=== PATIENT | female | born 2000 | race Caucasian/White ===

== ENCOUNTER 2019-11-21 13:46 | Emergency (ER) | payer MEDICAID ==
--- OUTSIDE RECORDS SUMMARY | ~2019-11-21 | XMS | Encounter Summary ---
Demographics + + + | Address | [address] | | | [place] [address] | + + + | Home Phone | | + + + | Preferred Language | Unknown | + + + | Marital Status | Single | + + + | Adventism Affiliation | Unknown | + + + | Race | Unknown | + + + | Ethnic Group | Unknown | + + + Author + + + | Author | [facility] | | | and [place] | + + + | Organization | [facility] | | | and [place]hin[place] | + + + | Address | Unknown | + + + | Phone | Unavailable | + + + Support + + + + + | Name | Relationship | Address | Phone | + + + + + | Aaron Giron | [place] [address] | | + + + + + Care Team Providers + +------+ + | Care Process Development Associate Name | Role | Phone | + +------+ + | Catracho Mullen DO | PCP | | + +------+ + Encounter Details +--------+ + + + + | Date | Type | Department | Care Team | Description | +--------+ + + + + | 06/20/ | Telephone | [facility] | Connie Gaines, | | | 2014 | | [facility] [place] | [facility] [address] [facility] | | | | | LABORATORY [address] | [place] [address] | | | | | [place] | [phone] | | | | | [address] | | | | | | [phone] | | | +--------+ + + + + Social History + + + +--------+ + | Tobacco Use | Types | Packs/Day | Years | Date | | | | | Used | | + + + +--------+ + | Former Smoker | Cigarettes | 1 | 1 | Started: 06/28/2013 | + + + +--------+ + + +---+---+---+ | Smokeless Tobacco: | | | | | Never Used | | | | + +---+---+---+ + + + | Sex Assigned at | Date Recorded | | | | + + + | Not on file | | + + + + + + + | Job Start Date | Occupation | Industry | + + + + | Not on file | Not on file | Not on file | + + + + + + + + | Travel History | Travel Start | Travel End | + + + + + + | No recent travel history available. | + + documented as of this encounter Plan of Treatment Not on filedocumented as of this encounter Visit Diagnoses Not on filedocumented in this encounter"
--- OUTSIDE RECORDS SUMMARY | ~2019-11-21 | XMS | Encounter Summary ---
Demographics + + + | Address | [address] | | | [place] [address] | + + + | Home Phone | | + + + | Preferred Language | Unknown | + + + | Marital Status | Single | + + + | Islam Affiliation | Unknown | + + + | Race | Unknown | + + + | Ethnic Group | Unknown | + + + Author + + + | Author | [facility] | | | and [place] | + + + | Organization | [facility] | | | and [place] | + + + | Address | Unknown | + + + | Phone | Unavailable | + + + Support + + + + + | Name | Relationship | Address | Phone | + + + + + | Aaron Giron | [place] [address] | | + + + + + Care Team Providers + +------+ + | Care Outside Sales Name | Role | Phone | + +------+ + | Thea Hernandez | PCP | | + +------+ + Reason for Visit + + + | Reason | Comments | + + + | Follow-up | | + + + Encounter Details +--------+ + + + + | Date | Type | Department | Care Team | Description | +--------+ + + + + | 05/23/ | Telephone | [facility] | Renetta, Wendy E, | Follow-up | | 2018 | | MEDICINE [address] | [address] | | | | | [address] | [place] | | | | | [place] | [place] [address] | | | | | [address] | [phone] | | | | | [phone] | | | +--------+ + + + [...] | | | + +---+---+---+ + + +---------+ + | Alcohol Use | Drinks/Week | oz/Week | Comments | + + +---------+ + | No | 0 Standard drinks | 0.0 | | | | or equivalent | | | + + +---------+ + + + + | Sex Assigned at [...]
--- OUTSIDE RECORDS SUMMARY | ~2019-11-21 | XMS | Encounter Summary ---
Demographics + + + | Address | [address] | | | [place] [address] | + + + | Home Phone | | + + + | Preferred Language | Unknown | + + + | Marital Status | Single | + + + | Protestant Affiliation | Unknown | + + + | Race | Unknown | + + + | Ethnic Group | Unknown | + + + Author + + + | Author | [facility] | | | and [place] | + + + | Organization | [facility] | | | and [place] | + + + | Address | Unknown | + + + | Phone | Unavailable | + + + Support + + + + + | Name | Relationship | Address | Phone | + + + + + | Aaron Giron | [place] [address] | | + + + + + Care Team Providers + +------+ + | Care Body And Frame Technician Name | Role | Phone | + +------+ + | Catracho Mullen DO | PCP | | + +------+ + Reason for Visit +--------+ + | Reason | Comments | +--------+ + | Other | discuss letrozole increasing dose not helping | +--------+ + Encounter Details +--------+---------+ + + + | Date | Type | Department | Care Team | Description | +--------+---------+ + + + | 06/16/ | Office | [facility] | Wendy Jackson, | Anovulation (Primary | | 2018 | Visit | MEDICINE [address] | [address] | Dx) | | | | [facility] | [facility] | | | | | [place] | [place] [address] | | | | | [address] | [phone] | | | | | [phone] | | | +--------+---------+ + + + Social History + + [...] + + documented as of this encounter Last Filed Vital Signs + +---------+ + + | Vital Sign | Reading | Time Taken | Comments | + +---------+ + + | Blood Pressure | 130/80 | 06/16/2017 2:43 PM | | | | | MST | | + +---------+ + + | Pulse | 99 | 06/16/2017 2:43 PM | | | | | MST | | + +---------+ + + | Temperature | - | - | | + +---------+ + + | Respiratory Rate | 18 | 06/16/2017 2:43 PM | | | | | MST | | + +---------+ + + | Oxygen Saturation | - | - | | + +---------+ + + | Inhaled Oxygen | - | - | | | Concentration | | | | + +---------+ + + | Weight | - | - | | + +---------+ + + | Height | - | - | | + +---------+ + + | Body Mass Index | - | - | | + +---------+ + + documented in this encounter Progress Notes Wendy Jackson DO - 06/16/2017 2:20 PM MSTPt here to discuss her ovulation induction. She has been on 2.5 mg of letrzole and having spontaneous menses. Will increase to 5 mg. Discussed to not get discouraged as this process can often take several cycles or even up to 1 year. Pt encouraged and mother provides great support as she had to use ovulation induct ion also Wendy Jackson documented in this encounter Plan of Treatment Not on filedocumented as of this encounter Visit Diagnoses + + | Diagnosis | + + | Anovulation - Primary Female infertility associated with anovulation | + + documented in this encounter"
--- OUTSIDE RECORDS SUMMARY | ~2019-11-21 | XMS | Encounter Summary ---
Demographics + + + | Address | [address] | | | [place] [address] | + + + | Home Phone | | + + + | Preferred Language | Unknown | + + + | Marital Status | Single | + + + | Sabianist Affiliation | Unknown | + + + | Race | Unknown | + + + | Ethnic Group | Unknown | + + + Author + + + | Author | [facility] | | | and [place] | + + + | Organization | [facility] | | | and [place] | + + + | Address | Unknown | + + + | Phone | Unavailable | + + + Support + + + + + | Name | Relationship | Address | Phone | + + + + + | Aaron Giron | [place] [address] | | + + + + + Care Team Providers + +------+ + | Care Wet Chemistry Analyst Name | Role | Phone | + [...] | +--------+ + + + + | 07/02/ | Telephone | [facility] | Wendy Jackson, | Follow-up | | 2018 | | MEDICINE [address] | [address] | | | | [address] | [place] | | | | | [place] | [place] [address] | | | | | [address] | [phone] | | | | | [phone] | | | +--------+ + + + [...]
--- OUTSIDE RECORDS SUMMARY | ~2019-11-21 | XMS | Encounter Summary ---
Demographics + + + | Address | [address] | | | [place] [address] | + + + | Home Phone | | + + + | Preferred Language | Unknown | + + + | Marital Status | Single | + + + | Baptist Affiliation | Unknown | + + + | Race | Unknown | + + + | Ethnic Group | Unknown | + + + Author + + + | Author | [facility] | | | and [place] | + + + | Organization | [facility] | | | and [place] | + + + | Address | Unknown | + + + | Phone | Unavailable | + + + Support + + + + + | Name | Relationship | Address | Phone | + + + + + | Aaron Giron | [place] [address] | | + + + + + Care Team Providers + +------+ + | Care Property Management Specialist Name | Role | Phone | + [...] | +--------+ + + + + | 04/21/ | Telephone | [facility] | Wendy Jackson, | Follow-up | | 2017 | | MEDICINE [address] | [address] | | | | [address] | [place] | | | | | [place] | [place] [address] | | | | | [address] | [phone] | | | | | [phone] | | | +--------+ + + + [...]
--- OUTSIDE RECORDS SUMMARY | ~2019-11-21 | XMS | Encounter Summary ---
Demographics + + + | Address | [address] | | | [place] [address] | + + + | Home Phone | | + + + | Preferred Language | Unknown | + + + | Marital Status | Single | + + + | Pentecostal Affiliation | Unknown | + + + | Race | Unknown | + + + | Ethnic Group | Unknown | + + + Author + + + | Author | [facility] | | | and [place] | + + + | Organization | [facility] | | | and [place]hin[place] | + + + | Address | Unknown | + + + | Phone | Unavailable | + + + Support + + + + + | Name | Relationship | Address | Phone | + + + + + | Aaron Giron | [place] [address] | | + + + + + Care Team Providers + +------+ + | Care Stringer Up Soldering Machine Name | Role | Phone | + [...] | +--------+ + + + + | 06/27/ | Telephone | [facility] | Renetta, Wendy E, | Follow-up | | 2019 | | MEDICINE [address] | [address] | | | | | [address] | [place] | | | | | [place] | [place] [address] | | | | | [address] | [phone] | | | | | [phone] | | | +--------+ + + + [...]
--- OUTSIDE RECORDS SUMMARY | ~2019-11-21 | XMS | Encounter Summary ---
Demographics + + + | Address | [address] | | | [place] [address] | + + + | Home Phone | | + + + | Preferred Language | Unknown | + + + | Marital Status | Single | + + + | Baptist Affiliation | Unknown | + + + | Race | Unknown | + + + | Ethnic Group | Unknown | + + + Author + + + | Author | [facility] | | | and [place] | + + + | Organization | [facility] | | | and [place]hinavana | + + + | Address | Unknown | + + + | Phone | Unavailable | + + + Support + + + + + | Name | Relationship | Address | Phone | + + + + + | Aaron Giron | [place] [address] | | + + + + + Care Team Providers + +------+ + | Care Business Analyst Intern Name | Role | Phone | + +------+ + | Catracho Mullen DO | PCP | | + +------+ + Reason for Visit +--------+ + | Reason | Comments | +--------+ + | Cough | Cough, congested, aches, pains, fever, chills, stomach and chest | | | hurt since yesturday morning. Also had a bloody nose all day | | | yesturday, today only when blows her nose. | +--------+ + Encounter Details +--------+---------+ + + + | Date | Type | Department | Care Team | Description | +--------+---------+ + + + | 04/03/ | Office | [facility] | James Butt, | [facility] | | 2013 | Visit | [facility] [[email or web address] | [facility] | respiratory | | | | [address] | Dr Roth, | infection) (Primary | | | | [place], [place] | [place] [address] | Dx); Dysuria; | | | | [address] | [phone] | Exposure to STD | | | | [phone] | | | +--------+---------+ + + + Social History + +-------+ +--------+------+ | Tobacco Use | Types | Packs/Day | Years | Date | | | | | Used | | + +-------+ +--------+------+ | Former Smoker | | | | | + +-------+ +--------+------+ + + +---------+ + | Alcohol Use | Drinks/Week | oz/Week | Comments | + + +---------+ + | Not Asked | | | | + + +---------+ + [...] this encounter Last Filed Vital Signs + + + + + | Vital Sign | Reading | Time Taken | Comments | + + + + + | Blood Pressure | 108/58 | 04/03/2014 1:29 PM | | | | | MDT | | + + + + + | Pulse | 105 | 04/03/2014 1:29 PM | | | | | MDT | | + + + + + | Temperature | 37.2 C (99 F) | 04/03/2014 1:29 PM | | | | | MDT | | + + + + + | Respiratory Rate | 20 | 04/03/2014 1:29 PM | | | | | MDT | | + + + + + | Oxygen Saturation | 95% | 04/03/2014 1:29 PM | | | | | MDT | | + + + + + | Inhaled Oxygen | - | - | | | Concentration | | | | + + + + + | Weight | 105.2 kg (232 lb) | 04/03/2014 1:29 PM | | | | | MDT | | + + + + + | Height | 170.2 cm (5' 7") | 04/03/2014 1:29 PM | | | | | MDT | | + + + + + | Body Mass Index | 36.34 | 04/03/2014 1:29 PM | | | | | PDT | | + + + + + documented in this encounter Progress Notes James Guerra FNP - 04/07/2014 5:15 PM MDTFormatting of this note might be diffe rent from the original. PATIENT NAME: Norma Green : 2000: AGE: 13 y.o. ENCOUNTER DATE: 04/03/2014 BETHANY Wilkes HISTORY OF PRESENT ILLNESS: Norma is a 13 y.o. year old female who presents with complaints of URI symptoms for the l ast 24 hours.. CURRENT ASSESSMENT AND PLAN URI (upper respiratory infection) Pt reports URI sx for last 24 hrs, sx include cough with green sputum, congestion, body ach es, ST and ear pain, Chills and fever. Upper respiratory infection is likely viral and she has no signs/symptoms of bacterial infe ction. There she does have a history of mild asthma, and reports having wheezing since onse t of illness. Plan: Instructed patient to continue use of albuterol inhaler every 4 hours when necessary. Use OTC guaifenesin, as well as OTC analgesics for pain and fever. Return if any worsening concerns. Exposure to STD María is reporting having had recent sexual contact with a partner positive for hep C. She also feels that she has had amenorrhea, increased vaginal discharge, and pain with urina tion. She is concerned about possible STD. Plan: GC chlamydia urine and UA ordered Spoke with patient about returning to see Connie Gaines, her PCP, for studies related to possible hepatitis C exposure Dysuria Patient describes some degree of pain with urination and frequency a which she believes is related to STD exposure. Plan: UA collected and resulted positive for small amount of bacteria and blood as well as nitrat es and leukocytes. Ciprofloxacin as ordered Anticipate culture FOLLOWUP No Follow-up on file. MEDICATION ADJUSTMENTS New Prescriptions ALBUTEROL (PROAIR HFA) 90 MCG/PUFF INHALER Inhale 2 puffs into the lungs every 6 hours as needed for Wheezing. CIPROFLOXACIN (CIPRO) 500 MG TABLET Take 1 tablet by mouth 2 times daily for 5 days. Medications Discontinued During This Encounter Medication Reason FLUoxetine (PROZAC) 20 mg capsule Patient Not Taking NEW ORDERS Orders Placed This Encounter Procedures C. trachomatis and N. gonorrhoeae, NAAT (APTIMA) Urinalysis with Microscopic with Culture if Indicated History Smoking status Former Smoker Smokeless tobacco Not on file Patient's medications, allergies, past medical, surgical, social and family histories were reviewed and updated as appropriate. REVIEW OF SYSTEMS: REVIEW OF SYSTEMS: Patient denies nausea, vomiting, chest pain, lower extremity swelling, o r bowel problems. See assessment and HPI for positives OBJECTIVE: Vitals with Orthostatic BP with comments 03/22/2014 04/03/2014 SYSTOLIC 110 108 DIASTOLIC 82 58 Pulse 68 105 Temp 98.4 99 Resp 18 20 Weight 232 lbs 232 lbs Height 5' 7" 5' 7" SPO2 97 95 BMI 36.4 kg/m2 36.4 kg/m2 General: Alert, oriented, and in no acute distress. HEENT: Normocephalic, features symmetric. PERRLA, EOMI, no injection icterus. Moist mucu s membranes. Nasal canals shows small amount of clear drainage, turbinates are inflamed. P osterior pharyngeal exam reveals no exudate, and small amount of redness. Tonsils not swoll en. Ear canals are clear. TM's are pearly banks and intact. Neck: Supple, no lymphadenopathy or thyromegaly Pulmonary: Chest is clear to auscultation. There are no rales, or rhonchi, did hear inspi ratory wheeze at right upper lobe. No use of intercostal or accessory muscles. Cardiovascular: Patient has regular rate and rhythm. There is no murmur, rub, or gallop. Abdomen: Soft and non-distended, bowel sounds are active in all four quadrants, with organ omegaly or masses, no bruit. There is diffuse mild tenderness. Neuro: Alert and oriented x3. CN II-XII grossly intact. Signed by: BETHANY Wilkes documented in this encounter Plan of Treatment Not on filedocumented as of this encounter Results Urinalysis with Microscopic with Culture if Indicated (04/03/2014 2:41 PM MDT) + + + + + + | Component | Value | Ref Range | Performed | Pathologist | | | | | At | Signature | + + + + + + | Color, | Yellow | Straw, Yellow | [facility] | | | Urine | | | [facility] | | | [facility] | | | | | | CENTER | | | | | | LABORATORY | | + + + + + + | Clarity | Clear | Clear, Slightly | [facility] | | | | | Cloudy, Other | [facility] | | | | | | [facility] | | | | | | CENTER | | | | | | LABORATORY | | + + + + + + | pH, Urine | 7.0 | 5.0 - 8.0 | [facility] | | | | | | [facility] | | | | | | MEDICAL | | | | | | CENTER | | | | | | LABORATORY | | + + + + + + | Specific | 1.025 | 1.005 - 1.030 | [facility] | | | [place], | | | [facility] | | | Urine | | | MEDICAL | | | | | | CENTER | | | | | | LABORATORY | | + + + + + + | Protein, | Negative | Negative | [facility] | | | Urine | | | [facility] | | | | | | MEDICAL | | | | | | CENTER | | | | | | LABORATORY | | + + + + + + | Blood, | Moderate (A) | Negative | [facility] | | | Urine | | | [facility] | | | | | | MEDICAL | | | | | | CENTER | | | | | | LABORATORY | | + + + + + + | Glucose, | Negative | Negative | [facility] | | | Urine | | | [facility] | | | | | | MEDICAL | | | | | | CENTER | | | | | | LABORATORY | | + + + + + + | Ketones, | Negative | Negative | [facility] | | | Urine | | | [facility] | | | | | | MED[facility] | | | | | | CENTER | | | | | | LABORATORY | | + + + + + + | Bilirubin, | Negative | Negative | [facility] | | | Urine | | | [facility] | | | | | | MEDICAL | | | | | | CENTER | | | | | | LABORATORY | | + + + + + + | Nitrite, | Negative | Negative | [facility] | | | Urine | | | [facility] | | | | | | MED[facility] | | | | | | CENTER | | | | | | LABORATORY | | + + + + + + | Leukocyte | Negative | Negative | [facility] | | | Esterase, | | | [facility] | | | Urine | | | MEDICAL | | | | | | CENTER | | | | | | LABORATORY | | + + + + + + | Urobilinoge | < 0.2 mg/dL | < 0.2 mg/dL, | [facility] | | | n, Urine | | 1.0 mg/dL | [facility] | | | | | | MEDICAL | | | | | | CENTER | | | | | | LABORATORY | | + + + + + + | White Blood | 0-2 | 0-2, 2-5, None | [facility] | | | Cells, | | Seen, Trace | [facility] | | | Urine | | /HPF | MEDICAL | | | | | | CENTER | | | | | | LABORATORY | | + + + + + + | Red Blood | 5 - 10 (A) | 0-2, None Seen | [facility] | | | Cells, | | /HPF | [facility] | | | Urine | | | MEDICAL | | | | | | CENTER | | | | | | LABORATORY | | + + + + + + | Squamous | <10 (A) | None Seen /LPF | [facility] | | | Epithelial | | | [facility] | | | Cells, | | | MEDICAL | | | Urine | | | CENTER | | | | | | LABORATORY | | + + + + + + | Bacteria, | 1+ (A) | None Seen, | [facility] | | | Urine | | Trace, Few /HPF | [facility] | | | | | | MEDICAL | | | | | | CENTER | | | | | | LABORATORY | | + + + + + + | Calcium | Few (A) | None Seen /HPF | [facility] | | | Oxalate | | | [facility] | | | Crystals, | | | MEDICAL | | | Urine | | | CENTER | | | | | | LABORATORY | | + + + + + + | Amorphous | Few (A) | None Seen /HPF | [facility] | | | Crystals, | | | [facility] | | | Urine | | | MEDICAL | | | | | | CENTER | | | | | | LABORATORY | | + + + + + + + + | Specimen | + + | Urine | + + + + + + + | Performing | Address | City/State/Zipcode | Phone Number | | Organization | | | | + + + + + | [facility] | [address] | [place] [address] | [phone] | | [facility] | | | | | LABORATORY | | | | + + + + + C. trachomatis and N. gonorrhoeae, NAAT (APTIMA) (04/03/2014 2:41 PM MDT) + + + + + + | Component | Value | Ref Range | Performed | Pathologist | | | | | At | Signature | + + + + + + | Chlamydia | NOT DETECTED | NOT DETECTED | REFERENCE | | | trachomatis | | | [facility] | | | rRNA PCR | | | [facility]NOST[facility] | | | | | | - [place] | | + + + + + + | Neisseria | NOT DETECTED | NOT DETECTED | REFERENCE | | | gonorrhoeae | | | [facility] | | | rRNA PCR | | | DIAGNOSTICS | | | | | | - [place] | | + + + + + + | Result | SEE NOTEComment: This | | REFERENCE | | | | test was performed using | | [facility] | | | | the APTIMA COMBO2 | | DIAGNOSTICS | | | | Assay([employer] | | - [place] | | | | The analytical | | | | | | performance | | | | | | characteristics of this | | | | | | assay, when used to test | | | | | | [facility] specimens | | | | | | havebeen determined by | | | | | | [facility]. | | | | + + + + + + + + | Specimen | + + | Specimen from | | genital system | | (specimen) - Urine, | | Clean Catch | + + + + + | Narrative | Performed At | + + + | Performing Organization Information: Site ID: [id number] | REFERENCE LAB | | Name: [facility] [address] Address: [address] | [facility] | | [address] [place] [id number] Director: [facility] - | | MD MATT | [place] | + + + + + + + + | Performing | Address | City/State/Zipcode | Phone Number | | Organization | | | | + + + + + | REFERENCE LAB | [address] | [place], [place] | [phone] | | [facility] - | [address] | [address] | | | [place] | | | | + + + + + documented in this encounter Visit Diagnoses + + | Diagnosis | + + | URI (upper respiratory infection) - Primary Acute upper respiratory infections of | | unspecified site | + + | Dysuria | + + | Exposure to STD Contact with or exposure to venereal diseases | + + documented in this encounter
--- OUTSIDE RECORDS SUMMARY | ~2019-11-21 | XMS | Encounter Summary ---
Demographics + + + | Address | [address] | | | [place] [address] | + + + | Home Phone | | + + + | Preferred Language | Unknown | + + + | Marital Status | Single | + + + | Sikhism Affiliation | Unknown | + + + | Race | Unknown | + + + | Ethnic Group | Unknown | + + + Author + + + | Author | [facility] | | | and [place] | + + + | Organization | [facility] | | | and [place] | + + + | Address | Unknown | + + + | Phone | Unavailable | + + + Support + + + + + | Name | Relationship | Address | Phone | + + + + + | Aaron Giron | [place] [address] | | + + + + + Care Team Providers + +------+ + | Care Brim Curler Name | Role | Phone | + +------+ + | Catracho Mullen DO | PCP | | + +------+ + Reason for Visit +---------+ + | Reason | Comments | +---------+ + | Results | UA | +---------+ + Encounter Details +--------+ + + + + | Date | Type | Department | Care Team | Description | +--------+ + + + + | 04/05/ | Telephone | [facility] | Marion Lee, | Results () | | 2013 | | [facility] | RN | | | | | [address] [facility] | | | | | | [place] | | | | | | [address] | | | | | | [phone] | | | +--------+ + + + + Social History + + + +--------+ + | Tobacco Use | Types | Packs/Day | Years | Date | | | | | Used | | + + + +--------+ + | Current Every Day | Cigarettes | 1 | 1 | Started: 06/28/2013 | | Smoker | | | | | + + + +--------+ + + [...]
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
--- OUTSIDE RECORDS SUMMARY | ~2019-11-21 | XMS | Encounter Summary ---
Demographics + + + | Address | [address] | | | [place] [address] | + + + | Home Phone | | + + + | Preferred Language | Unknown | + + + | Marital Status | Single | + + + | Confucianism Affiliation | Unknown | + + + | Race | Unknown | + + + | Ethnic Group | Unknown | + + + Author + + + | Author | [facility] | | | and [place] | + + + | Organization | [facility] | | | and [place] | + + + | Address | Unknown | + + + | Phone | Unavailable | + + + Support + + + + + | Name | Relationship | Address | Phone | + + + + + | Aaron Giron | [place] [address] | | + + + + + Care Team Providers + +------+ + | Care Local Superintendent Name | Role | Phone | + +------+ + | Catracho Mullen DO | PCP | | + +------+ + Encounter Details +--------+ + + + + | Date | Type | Department | Care Team | Description | +--------+ + + + + | 12/03/ | Hospital | [facility] | Dewayne Ozuna | Oral infection | | 2015 | Encounter | MEDICAL CENTER | [address] | (Primary Dx) | | | | LABORATORY [address] [place], [place] | | | | | [place], [place] | [id number] | | | | | [address] | | | | | | [phone] | | | +--------+ + + + [...] + + documented as of this encounter Medications at Time of Discharge [...] | + +--------+ + + + | CBC WITH | Routin | 12/03/2014 | Oral infection | Results for this | | DIFFERENTIAL | e | 1:44 PM | | procedure are in the | | | | MDT | | results section. | + +--------+ + + + documented in this encounter Results CBC with Differential (12/03/2014 1:44 PM MDT) + + + + + + | Component | Value | Ref Range | Performed | Pathologist | | | | | At | Signature | + + + + + + | WBC | 13.1 (H) | 4.0 - 10.1 | [facility] | | | | | 10*3/uL | [facility] | [facility] | | | | | | LABORATORY | | + + + + + + | RBC | 4.70 | 3.92 - 5.58 | [facility] | | | | | 10*6/uL | [facility] | | | | | | LABORATORY | | + + + + + + | Hemoglobin | 13.5 | 12.1 - 17.1 | [facility] | | | | | g/dL | [facility] | [facility] | | | | | | LABORATORY | | + + + + + + | Hct | 40.7 | 38.3 - 51.1 % | [facility] | | | | | | [facility] | [facility] | | | [facility] | [facility] | | | | | | LABORATORY | | + + + + + + | MCV | 86.6 | 83.0 - 103.0 fL | [facility] | | | | | | [facility] | [facility] | [facility] | | | | | | LABORATORY | | + + + + + + | MCH | 28.7 | 26.9 - 34.0 pg | [facility] | | | | | | [facility] | [facility] | | [facility] | [facility] | | | | | | LABORATORY | | + + + + + + | MCHC | 33.2 | 31.5 - 36.0 | [facility] | | | | | g/dL | [facility] | [facility] | | | | | | LABORATORY | | + + + + + + | RDW-CV | 14.0 | 12.0 - 15.0 % | [facility] | | | | | | [facility] | | | | | [facility] | | | | | | LABORATORY | | + + + + + + | Platelet | 254 | 140 - 440 | [facility] | | | Count | | 10*3/uL | [facility] | [facility] | | | | | [facility] | | | | | | LABORATORY | | + + + + + + | MPV | 10.5 | 7.0 - 10.5 fL | [facility] | | | | | | [facility] | | | | | [facility] | | | | | | LABORATORY | | + + + + + + | % | 75.5 (H) | 42.0 - 75.0 % | [facility] | | | Neutrophils | | | [facility] | [facility] | | | | | [facility] | | | | | | LABORATORY | | + + + + + + | % | 17.3 (L) | 20.0 - 51.0 % | [facility] | | | Lymphocytes | | | [facility] | | | | | CENTER | | | | | | LABORATORY | | + + + + + + | % Monocytes | 6.3 | 5.3 - 12.2 % | [facility] | | | | | | [facility] | | [facility] | | | | | | [facility] | | | | | | LABORATORY | | + + + + + + | % | 0.5 | 0.0 - 4.0 % | [facility] | | | Eosinophils | | | [facility] | | [facility] | | | | | | CENTER | | | | | | LABORATORY | | + + + + + + | % Basophils | 0.2 | 0.0 - 3.0 % | [facility] | | | | | | [facility] | | | | [facility] | [facility] | | | | | | CENTER | | | | | | LABORATORY | | + + + + + + | % Immature | 0.2 | 0.0 - 2.0 % | [facility] | | | Granulocyte | | | [facility] | | | s | | | MEDICAL | | | | | | CENTER | | | | | | LABORATORY | | + + + + + + | Absolute | 9.89 | K/uL | [facility] | | | Neutrophils | | | [facility] | | [facility] | | | | | | CENTER | | | | | | LABORATORY | | + + + + + + | Absolute | 2.26 | K/uL | [facility] | | | Lymphocytes | | | [facility] | [facility] | | | | | | CENTER | | | | | | LABORATORY | | + + + + + + | Absolute | 0.83 | K/uL | [facility] | | | Monocytes | | | [facility] | | [facility] | | | | | | CENTER | | | | | | LABORATORY | | + + + + + + | Absolute | 0.07 | K/uL | [facility] | | | Eosinophils | | | [facility] | | | | | | CENTER | | | | | | LABORATORY | | + + + + + + | Absolute | 0.02 | K/uL | [facility] | | | Basophils | | | [facility] | | | [facility] | [facility] | | | | | | CENTER | | | | | | LABORATORY | | + + + + + + | Absolute | 0.03 | K/UL | [facility] | | | Immature | | | [facility] | | | Granulocyte | | | MEDICAL | | | s | | | CENTER | | | | | | LABORATORY | | + + + + + + + + | Specimen | + + | Blood | + + + + + + + | Performing | Address | City/State/Zipcode | Phone Number | | Organization | | | | + + + + + | [facility] | [address] | [place] [address] | [phone] | | MEDICAL CENTER | | | | | LABORATORY | | | | + + + + + documented in this encounter Visit Diagnoses + + | Diagnosis | + + | Oral infection - Primary Cellulitis and abscess of oral soft tissues | + + documented in this encounter"
--- OUTSIDE RECORDS SUMMARY | ~2019-11-21 | XMS | Encounter Summary ---
Demographics + + + | Address | [address] | | | [place] [address] | + + + | Home Phone | | + + + | Preferred Language | Unknown | + + + | Marital Status | Single | + + + | Restoration Affiliation | Unknown | + + + | Race | Unknown | + + + | Ethnic Group | Unknown | + + + Author + + + | Author | [facility] | | | and [place] | + + + | Organization | [facility] | | | and [place] | + + + | Address | Unknown | + + + | Phone | Unavailable | + + + Support + + + + + | Name | Relationship | Address | Phone | + + + + + | Aaron Giron | [place] [address] | | + + + + + Care Team Providers + +------+ + | Care Automatic Profile Shaper Operator Name | Role | Phone | + +------+ + | Thea Hernandez | PCP | | + +------+ + Reason for Visit + + + | Reason | Comments | + + + | Medication Refill | | + + + Encounter Details +--------+--------+ + + + | Date | Type | Department | Care Team | Description | +--------+--------+ + + + | 07/07/ | Refill | [facility] | Charito Anderson | Medication Refill | | 2019 | | MEDICINE [address] | [address] | | | | | [address] | | | | | | [place], [place] | | | | | | [address] | | | | | | [phone] | | | +--------+--------+ + + + Social History + + [...]
--- OUTSIDE RECORDS SUMMARY | ~2019-11-21 | XMS | Encounter Summary ---
Demographics + + + | Address | [address] | | | [place] [address] | + + + | Home Phone | | + + + | Preferred Language | Unknown | + + + | Marital Status | Single | + + + | Yarsanism Affiliation | Unknown | + + + | Race | Unknown | + + + | Ethnic Group | Unknown | + + + Author + + + | Author | [facility] | | | and [place] | [...] | Aaron Giron | [place] [address] | | + + + + + Care Team Providers + +------+ + | Care Welder Helper Name | Role | Phone | + [...] | +--------+ + + + + | 05/04/ | Telephone | [facility] | Renetta, Wendy E, | Follow-up | | 2018 | | MEDICINE [address] | [address] | | | | | [address] | [address] | | | | | [place] | [place] [address] | | | | | [address] | [phone] | | | | | [phone] | | | +--------+ + + + [...]
--- OUTSIDE RECORDS SUMMARY | ~2019-11-21 | XMS | Encounter Summary ---
Demographics + + + | Address | [address] | | | [place] [address] | + + + | Home Phone | | + + + | Preferred Language | Unknown | + + + | Marital Status | Single | + + + | Sikhism Affiliation | Unknown | + + + | Race | Unknown | + + + | Ethnic Group | Unknown | + + + Author + + + | Author | [facility] | | | and [place] | + + + | Organization | [facility] | | | and [place] | + + + | Address | Unknown | + + + | Phone | Unavailable | + + + Support + + + + + | Name | Relationship | Address | Phone | + + + + + | Aaron Giron | [place] [address] | | + + + + + Care Team Providers + +------+ + | Care Nocturnist Physician Name | Role | Phone | + +------+ + | Catracho Mullen DO | PCP | | + +------+ + Reason for Visit Auth/Cert +--------+--------+ + + + + | Status | Reason | Specialty | Diagnoses / | Referred By | Referred To | | | | | Procedures | Contact | Contact | +--------+--------+ + + + + | Closed | | | Diagnoses | | | | | | | Unspecified | | | | | | | dental | | | | | | | caries | | | | | | | Periapical | | | | | | | abscess | | | | | | | without | | | | | | | sinus Oral | | | | | | | infection | | | | | | | Procedures | | | | | | | DENTAL CARE | | | | | | | UNDER | | | | | | | ANESTHESIA | | | +--------+--------+ + + + + Encounter Details +--------+ + + + + | Date | Type | Department | Care Team | Description | +--------+ + + + + | 12/06/ | Hospital | [facility] | Dewayne Ozuna | | | 2015 | Encounter | [facility] | [address] | | | | | INTRA [address] | [place], [place] | | | | | [place] | [id number] | | | | | [address] | | | | | | [phone] | | | +--------+ + + + [...] + + + | Blood Pressure | 132/76 | 12/06/2014 2:10 PM | | | | | MDT | | + + + + + | Pulse | 87 | 12/06/2014 2:15 PM | | | | | MDT | | + + + + + | Temperature | 36.1 C (97 F) | 12/06/2014 2:00 PM | | | | | MDT | | + + + + + | Respiratory Rate | 16 | 12/06/2014 2:15 PM | | | | | MDT | | + + + + + | Oxygen Saturation | 98% | 12/06/2014 2:15 PM | | | | | MDT | | + + + + + | Inhaled Oxygen | - | - | | | Concentration | | | | + + + + + | Weight | 96.6 kg (213 lb) | 12/06/2014 11:01 AM | | | | | MDT | | + + + + + | Height | 170.2 cm (5' 7") | 12/06/2014 11:01 AM | | | | | MDT | | + + + + + | Body Mass Index | 33.36 | 12/06/2014 11:01 AM | | | | | PDT | | + + + + + documented in this encounter Medications at Time of Discharge + + + +---------+ + + | Medication | Sig | Dispensed | Refills | Start | End Date | | | | | | Date | | + + + +---------+ + + | albuterol (PROAIR | Inhale 2 puffs into | 1 | 2 | 04/03/ | | | HFA) 90 mcg/puff | [...] | + +--------+ + + + | DENTAL CARE UNDER | | 12/06/2014 | Unspecified dental | | | ANESTHESIA | | 11:46 AM | caries Periapical | | | | | MDT | abscess without | | | | | | sinus | | + +--------+ + + + | HCG, URINE, QUAL | Routin | 12/06/2014 | | Results for this | | | e | 11:17 AM | | procedure are in the | | | | MDT | | results section. | + +--------+ + + + documented in this encounter Results HCG, Urine, Qual (12/06/2014 11:17 AM MDT) + + + + + + | Component | Value | Ref Range | Performed | Pathologist | | | | | At | Signature | + + + + + + | HCG | Negative | Negative | [facility] | | | Qualitative | | [facility] | | | , Urine | | | MEDICAL | | [...] | + + + + + | [facility] | [address] | [place] [address] | [phone] | | MEDICAL CENTER | | | | | LABORATORY | | | | + + + + + documented in this encounter Visit Diagnoses Not on filedocumented in this encounter Administered Medications + +---------+ +------+------+------+ | Medication Order | MAR | Action | Dose | Rate | Site | | | Action | Date | | | | + +---------+ +------+------+------+ | lactated ringers (LR) infusion | New Bag | 12/07/19 | | | | | at 10-100 mL/hr, Intravenous, | | 15 1:20 | | | | | CONTINUOUS, Starting Serena 12/06/14 | | PM MDT | | | | | at 1115, TKO., Pre-op | | | | | | + +---------+ +------+------+------+ +---------+ +---------+-------+---+ | New Bag | 06/25/20 | 100 mLs | 100 | | | | 15 11:19 | | mL/hr | | | | AM MDT | | | | +---------+ +---------+-------+---+ +---+---+ | | | +---+---+ documented in this encounter
--- OUTSIDE RECORDS SUMMARY | ~2019-11-21 | XMS | Encounter Summary ---
Demographics + + + | Address | [address] | | | [place] [address] | + + + | Home Phone | | + + + | Preferred Language | Unknown | + + + | Marital Status | Single | + + + | Moravian Affiliation | Unknown | + + + | Race | Unknown | + + + | Ethnic Group | Unknown | + + + Author + + + | Author | [facility] | | | and [place] | + + + | Organization | [facility] | | | and [place] | + + + | Address | Unknown | + + + | Phone | Unavailable | + + + Support + + + + + | Name | Relationship | Address | Phone | + + + + + | Aaron Giron | [place] [address] | | + + + + + Care Team Providers + +------+ + | Care Hollow Ware Maker Name | Role | Phone | + +------+ + | Catracho Mullen DO | PCP | | + +------+ + Reason for Visit + + + | Reason | Comments | + + + | Vomiting | sore throat, not able to hold anything down, started 4 days ago. | + + + | Diarrhea | | + + + Encounter Details +--------+---------+ + + + | Date | Type | Department | Care Team | Description | +--------+---------+ + + + | 05/16/ | Office | [facility] | Junie Bowie, | Viral | | 2013 | Visit | [facility] | Leonela Diggs PA-C 805 | gastroenteritis | | | | [address] | [place], [place] | (Primary Dx); | | | | [place], [place] | [id number] | Acanthosis | | | | [address] | | nigricans; | | | | [phone] | | Unprotected sexual | | | | | | intercourse | +--------+---------+ + + + Social History [...] + + + | Blood Pressure | 110/64 | 05/16/2014 10:18 AM | | | | | MST | | + + + + + | Pulse | 75 | 05/16/2014 10:18 AM | | | | | MST | | + + + + + | Temperature | 36.9 C (98.4 F) | 05/16/2014 10:18 AM | | | | | MST | | + + + + + | Respiratory Rate | 18 | 05/16/2014 10:18 AM | | | | | MST | | + + + + + | Oxygen Saturation | 95% | 05/16/2014 10:18 AM | | | | | MST | | + + + + + | Inhaled Oxygen | - | - | | | Concentration | | | | + + + + + | Weight | 103.9 kg (229 lb) | 05/16/2014 10:18 AM | | | | | MST | | + + + + + | Height | 170.2 cm (5' 7") | 05/16/2014 10:18 AM | | | | | MST | | + + + + + | Body Mass Index | 35.87 | 05/16/2014 10:18 AM | | | | | PST | | + + + + + documented in this encounter Patient Instructions Patient Instructions Leonela Bowie PA - 05/16/2014 11:07 AM MST Viral Gastroenteritis (6Yr-Adult) Gastroenteritis is another name for the stomach flu. It is most often caused by a vir us that affects the stomach and intestinal tract. Symptoms include stomach cramping and feve r, vomiting and/or diarrhea, and can last from 2 to 7 days. The danger from repeated vomiting or diarrhea is dehydration. This is the loss of too much water and minerals from the body. When this occurs, body fluids must be replaced. Antibiotic s are not effective for this illness, but simple home treatment will be helpful. Home Care If symptoms are severe, rest at home for the next 24 hours. Avoid tobacco, caffeine, and alcohol use, which can worsen symptoms. Acetaminophen (Tylenol) or ibuprofen (Motrin, Advil) may be used for fever or pain unles s another medication was prescribed. NOTE: If you have chronic liver or kidney disease or ev er had a stomach ulcer or GI bleeding, talk with your doctor before using these medicines. A spirin should never be used in anyone under 18 years of age who is ill with a fever. It may cause severe liver damage. If medicines for diarrhea or vomiting were prescribed, be sure they are taken only as di rected. If vomiting, drink small amounts of clear fluids (such as water, sports drinks, clear so talbert) at frequent intervals to prevent dehydration. Start with 1 to 2 tablespoons every 10 mi nutes. Once vomiting stops, follow these guidelines: During The First 12 To 24 Hours follow the diet below: Beverages: Sport drinks like Gatorade, soft drinks without caffeine; jose tamie, mineral water (plain or flavored), decaffeinated tea and coffee. Soups: Clear broth, consomm and bouillon Desserts: Plain gelatin (Jell-O), Popsicles and fruit juice bars. During The Next 24 Hours you may add the following to the above: Hot cereal, plain toast, bread, rolls, crackers Plain noodles, rice, mashed potatoes, chicken noodle or rice soup Unsweetened canned fruit (avoid pineapple), bananas Limit fat intake to less than 15 grams per day by avoiding margarine, butter, oils, engel nnaise, sauces, gravies, fried foods, peanut butter, meat, poultry, and fish. Limit fiber; avoid raw or cooked vegetables, fresh fruits (except bananas), and bran cer eals. Limit caffeine and chocolate. Do not use spices or seasonings except salt. During The Next 24 Hours The patient can gradually resume a normal diet as symptoms lessen. Preventing Spread Hand washing with soap and water is the best way to prevent the spread of viruses. Careg herminia should wash their hands before and after touching the sick person. The sick person, as well as everyone in the family, should wash their hands after using the toilet and before meals. Clean the toilet after each use. People with diarrhea should not prepare food for others. If you are preparing your own f oods, wash your hands before and after. Follow Up with your doctor as advised. Call your doctor if you are not improving over the next 2 to 3 days. If a stool (diarrhea) sample was taken, you may call in 2 days (or as directed) for t he results. Get Prompt Medical Attention if any of the following occur: Increasing abdominal pain Continued vomiting (unable to keep liquids down) Frequent diarrhea (more than 5 times a day) Blood in vomit or stool (black or red color) Dark urine, reduced urine output, or extreme thirst Weakness, dizziness, fainting Drowsiness, confusion, stiff neck, or seizure Fever of 100.4F (38C) oral or higher, not better with fever medication New rash [phone] [facility], [address] [place] [address], [place] [address]. All rights reserve d. This information is not intended as a substitute for professional medical care. Always fo llow your healthcare professional's instructions. documented in this encounter Progress Notes Leonela Bowie PA - 05/16/2014 10:38 AM MSTFormatting of this note might be differ ent from the original. PATIENT NAME: Norma Green : 2000: AGE: 13 y.o. ENCOUNTER DATE: 05/16/2014 [facility] IDRIS Cid Physician Tour Sales Representative-Certified, [facility] [phone] CURRENT ASSESSMENT AND PLAN 1. Viral gastroenteritis 2. Acanthosis nigricans CBC with Differential Comprehensive Metabolic Panel Hemoglobin A1C 3. Unprotected sexual intercourse C. trachomatis and N. gonorrhoeae, NAAT ([facility]TIMA) Hepatitis Panel, Acute HIV 1 and 2 Ab, Reflex Rapid Plasma Reagin, Qual Herpes Simplex Virus 1 and 2 Ab, IgG Suggested return to school after diarrhea has subsided x 24 hours.Handouts given on conserv ative management. 2)Will get lab testing as above. 3)Pt does not wish to have control initiated at this time. Says that if she does beco me sexually active will use condoms. Encouraged sexual abstinence. RTC at anytime for initia tion. Call mother when results return. FOLLOWUP No Follow-up on file. NEW ORDERS Orders Placed This Encounter Procedures C. trachomatis and N. gonorrhoeae, NAAT (APTIMA) CBC with Differential Comprehensive Metabolic Panel Hemoglobin A1C Hepatitis Panel, Acute HIV 1 and 2 Ab, Reflex Rapid Plasma Reagin, Qual Herpes Simplex Virus 1 and 2 Ab, IgG HISTORY OF PRESENT ILLNESS: 13 y.o. year old female presents today for vomiting (multple) as well as diarrhea (approx e very twenty minutes) as well as a sore throat x 2 days. Is able to drink soda but any other products are vomited up within half an hour. Has abdominal cramping that occurs every twen ty minutes. Unsure if there has been hematochezia, melena, mucus, or pus in the stool. Las t unprotected intercourse was January 26. Has two sores that presented on the medial thigh. Are non tender. Denies vaginal pain or vaginal discharge. Did not go to the [facility] tme as directed for STD testing. Endorses dysphonia and dysphagia but no odynophagia. Denies otic/opthalmic/nasal pain or DC , vocal hoarseness, post nasal drip, headaches, vision changes, coughing, wheezing. Had a fever for a day or two but this resolved. LMP was two weeks ago. Periods are irregular. Pt is not currently having intercourse. Yosvany rodriguez wants to wait until she is to have intercourse. Will utilize condoms if the y decide to. REVIEW OF MEDICAL HISTORY: Patient's medications, allergies, past medical, surgical, social and family histories were reviewed and updated as appropriate. REVIEW OF SYSTEMS: As above. OBJECTIVE: Physical Exam Vitals with Orthostatic BP with comments 04/30/2014 04/30/2014 05/15/2014 05/16/2014 SYSTOLIC 135 128 120 110 DIASTOLIC 91 88 62 64 Pulse 107 98 95 75 Temp 98.8 98.6 98 98.4 Resp 20 20 20 18 Weight 180 lbs - 220 lbs 229 lbs Height 5' 7.008" - 5' 7" 5' 7" SPO2 98 98 95 95 O2 Device (Oxygen Therapy) room air room air - - BMI 28.2 kg/m2 - 34.5 kg/m2 35.9 kg/m2 GENERAL APPEARANCE: Well developed, well nourished, alert and cooperative, and appears to b e in no acute distress. Obese SKIN: Acanthosis nigricans noted on neck. Folliculocentric papules appreciated with minimal underlying erythema. HEAD: Normalcephalic atraumatic EYES: Pupils equal, round and reactive to light, extraocular movements intact. The sclerae were anicteric and conjunctivae were pink and moist. No discharge noted. EARS: External auditory canals and tympanic membranes clear without erythema, edema or exud ate noted. Hearing grossly intact. NOSE: Turbinates without edema or erythema. No discharge noted. No sinus tenderness to pa lpation. THROAT: Oral cavity and pharynx normal. No inflammation, swelling, exudate, or lesi ons. Teeth and gingiva in good general condition. NECK: Neck supple, non-tender without lymphadenopathy, masses or thyromegaly. Trachea midli ne. Normal range of motion. LUNGS: Clear to auscultation and percussion without rales, rhonchi, wheezing or diminished breath sounds. Symmetrical expansion. CARDIAC: Normal S1 and S2. No S3, S4 or murmurs. Regular rate and rhythm. There is no perip heral edema, cyanosis or pallor. Extremities are warm and well perfused. Capillary refill is less than 2 seconds. Pulses 3+. ABDOMEN: Normal active bowel sounds x 4. Soft, nondistended, nontender. No guarding or re bound. No masses. No hepatosplenomegaly. Negative [place] and [place]. MUSKULOSKELETAL: Normal muscular development. Normal gait NEUROLOGICAL: Cranial nerves II-XII intact. PSYCHIATRIC: The mental examination revealed the patient was oriented to person, place, and time. The patient was able to demonstrate good judgement and reason, without hallucinations , abnormal affect or abnormal behaviors during the examination. Patient is not suicidal. Signed by: IDRIS Cid documented in this encounter Plan of Treatment Not on filedocumented as of this encounter Results C. trachomatis and N. gonorrhoeae, NAAT (APTIMA) (05/16/2014 11:19 AM [facility]) + + + + + + | [...] | | DIAGNOSTICS | | | | Assay([employer] | | - [place] | | | | The analytical | [...] REFERENCE LAB | | Name: [facility] [address] Address: [address] | [place] | | [address] [place] [address] Director: RAYSHAWN Lee [facility] - | | [place] MATT | [place] | + + + + + + + + | Performing | Address | City/State/Zipcode | Phone Number | | Organization | | | | + + + + + | REFERENCE LAB | [address] | [place], [place] | [phone] | | [facility] - | [address] | [address] | | | [place] | | | | + + + + + Herpes Simplex Virus 1 and 2 Ab, IgG (05/16/2014 11:10 AM MST) + + + + + + | Component | Value | Ref Range | Performed | Pathologist | | | | | At | Signature | + + + + + + | HSV 1 Ab, | >5.00 (H) | | REFERENCE | | | IgG | | | LAB [facility] | | | | | | DIAGNOSTICS | | | | | | - [place] | | + + + + + + | HSV 2 Ab | 0.03Comment: | | REFERENCE | | | IgG | Value | | [facility] | | | | Interpretation | | DIAGNOSTICS | | | | | | - [place] | | | | ----- | | | | | | | | | | | | <0.90 | | | | | | Negative | | | | | | | | | | | | 0.90-1.10 Equivocal | | | | | | | | | | | | >1.10 | | | | | | Positive This assay | | | | | | utilizes recombinant | | | | | | type-specific antigensto | | | | | | differentiate HSV-1 | | | | | | from HSV-2 infections. | | | | | | Apositive result cannot | | | | | | distinguish between | | | | | | recent andpast | | | | | | infection. If recent HSV | | | | | | infection is | | | | | | suspectedbut the results | | | | | | are negative or | | | | | | equivocal, the | | | | | | assayshould be repeated | | | | | | in 4-6 weeks. The | | | | | | performancecharacteristi | | | | | | cs of the assay have not | | | | | | been establishedfor | | | | | | pediatric populations, | | | | | | immunocompromised | | | | | | patients,or | | | | | | screening. | | | | + + + + + + + + | Specimen | + + | Blood specimen | | (specimen) | + + + + + | Narrative | Performed At | + + + | Performing Organization Information: Site ID: EN Name: | REFERENCE LAB | | [facility] Address: [address] [place] [address] | [facility] | | [place] [address] Director: JOSHUA HIGGINS MD.,PH.D | DIAGNOSTICS - | | | [place] | + + + + + + + + | Performing | Address | City/State/Zipcode | Phone Number | | Organization | | | | + + + + + | REFERENCE LAB | [address] | [place], [place] | [phone] | | [facility] - | [address] | [address] | | | [place] | | | | + + + + + Rapid Plasma Reagin, Qual (05/16/2014 11:10 AM MST) + + + + + + | Component | Value | Ref Range | Performed | Pathologist | | | | | At | Signature | + + + + + + | Treponema | NON-REACTIVE | NON-REACTIVE | REFERENCE | | | Pallidum Ab | | | [facility] | | | RPR, Qual | | | DIAGNOSTICS | | | | | | - [place] | | + + + + + + + + | Specimen | + + | Blood specimen | | (specimen) | + + + + + | Narrative | Performed At | + + + | Performing Organization Information: Site ID: NW Name: | REFERENCE LAB | | [facility] Address: [address] | [place] | | [address] [place] [address] Director: RAYSHAWN GUTIERREZ MD | DIAGNOSTICS - | | | [place] | + + + + + + + + | Performing | Address | City/State/Zipcode | Phone Number | | Organization | | | | + + + + + | REFERENCE LAB | [address] | [place], [place] | [phone] | | [facility] - | [address] | [address] | | | [place] | | | | + + + + + HIV 1 and 2 Ab, Reflex (05/16/2014 11:10 AM MST) + + + + + + | Component | Value | Ref Range | Performed | Pathologist | | | | | At | Signature | + + + + + + | HIV 1 and 2 | NON-REACTIVEComment: A | NON-REACTIVE | REFERENCE | | | Ab | Nonreactive HIV 1/2 | | [facility] | | | | antibody result does | | DIAGNOSTICS | | | | notexclude HIV infection | | - [place] | | | | since the time frame | | | | | | forseroconversion is | | | | | | variable. If acute HIV | | | | | | infection issuspected, | | | | | | HIV-1 RNA TMA | | | | | | Qualitative (86331) | | | | | | testing is recommended. | | | | | | PLEASE NOTE: This | | | | | | information has been | | | | | | disclosed to youfrom | | | | | | records whose | | | | | | confidentiality may be | | | | | | protected bystate law. | | | | | | If your state requires | | | | | | such protection, | | | | | | thenthe state law | | | | | | prohibits you from | | | | | | making any | | | | | | furtherdisclosure of the | | | | | | information without the | | | | | | specificwritten consent | | | | | | of the person to whom | | | | | | it pertains, oras | | | | | | otherwise permitted by | | | | | | law. A general | | | | | | authorizationfor the | | | | | | release of medical or | | | | | | other information is | | | | | | NOTsufficient for this | | | | | | purpose. | | | | + + + + + + + + | Specimen | + + | Blood specimen | | (specimen) | + + + + + | Narrative | Performed At | + + + | Performing Organization Information: Site ID: NW Name: | REFERENCE LAB | | [facility] Address: [address] | [facility] | | [address] [place] [address] Director: RAYSHAWN GUTIERREZ MD | DIAGNOSTICS - | | | [place] | + + + + + + + + | Performing | Address | City/State/Zipcode | Phone Number | | Organization | | | | + + + + + | REFERENCE LAB | [address] | [place], [place] | [phone] | | [facility] - | [address] | [address] | | | [place] | | | | + + + + + Hepatitis Panel, Acute (05/16/2014 11:10 AM MST) + + + + + + | Component | Value | Ref Range | Performed | Pathologist | | | | | At | Signature | + + + + + + | HEP A TOTAL | REACTIVE (A) | NON-REACTIVE | REFERENCE | | | AB | | | [facility] | | | | | | DIAGNOSTICS | | | | | | - [place] | | + + + + + + | Hepatitis B | NON-REACTIVE | NON-REACTIVE | REFERENCE | | | Surface | | | [facility] | | | Antibody | | | DIAGNOSTICS | | | Qual | | | - [place] | | + + + + + + | Hepatitis B | NON-REACTIVE | NON-REACTIVE | REFERENCE | | | Surface Ag | | | [facility] | | | | | | DIAGNOSTICS | | | | | | - [place] | | + + + + + + | Hepatitis B | NON-REACTIVE | NON-REACTIVE | REFERENCE | | | Core Ab, | | | [facility] | | | Total | | | DIAGNOSTICS | | | | | | - [place] | | + + + + + + | Hepatitis C | NON-REACTIVE | NON-REACTIVE | REFERENCE | | | Ab | | | [facility] | | | | | | DIAGNOSTICS | | | | | | - [place] | | + + + + + + | Signal/Cuto | 0.03 | <1.00 | REFERENCE | | | ff | | | [facility] | | | | | | DIAGNOSTICS | | | | | | - [place] | | + + + + + + + + | Specimen | + + | Blood specimen | | (specimen) | + + + + + | Narrative | Performed At | + + + | Performing Organization Information: Site ID: NW Name: | REFERENCE LAB | | [facility] Address: [address] | [facility] | | [address] [place] [address] Director: RAYSHAWN GUTIERREZ MD | DIAGNOSTICS - | | | [place] | + + + + + + + + | Performing | Address | City/State/Zipcode | Phone Number | | Organization | | | | + + + + + | REFERENCE LAB | [address] | [place], [place] | [phone] | | [facility] - | [address] | [address] | | | [place] | | | | + + + + + Hemoglobin A1C (05/16/2014 11:10 AM MST) + +-------+ + + + | Component | Value | Ref Range | Performed | Pathologist | | | | | At | Signature | + +-------+ + + + | Hemoglobin | 5.3 | 4.8 - 6.0 % | [facility] | | | A1c | | | [facility] | | [facility] | | | | | | [facility] | | | | | | LABORATORY | | + +-------+ + + + | Estimated | 105 | mg/dL | [facility] | | | Average | | | [facility] | | | Glucose | | | MEDICAL | | | | | | CENTER | | | | | | LABORATORY | | + +-------+ + + + + + | Specimen | + + | Blood | + + + + + + + | Performing | Address | City/State/Zipcode | Phone Number | | Organization | | | | + + + + + | [facility] | [address] [facility] [facility] [facility] | [place] [address] | [phone] | | MEDICAL CENTER | | | | | LABORATORY | | | | + + + + + Comprehensive Metabolic Panel (05/16/2014 11:10 AM MST) + +---------+ + + + | Component | Value | Ref Range | Performed | Pathologist | | | | | At | Signature | + +---------+ + + + | Na | 135 | 134 - 141 | [facility] | | | | | mmol/L | [facility] | | [facility] | | | | | | CENTER | | | | | | LABORATORY | | + +---------+ + + + | K | 3.9 | 3.5 - 5.1 | [facility] | | | | | mmol/L | [facility] | | [facility] | | | | | | CENTER | | | | | | LABORATORY | | + +---------+ + + + | Cl | 103 | 98 - 107 mmol/L | [facility] | | | | | | [facility] | | | | | | [facility] | | | | | | CENTER | | | | | | LABORATORY | | + +---------+ + + + | CO2 | 23 | 21 - 32 mmol/L | [facility] | | | | | | [facility] | | [facility] | | | | | | [facility]ENTER | | | | | | LABORATORY | | + +---------+ + + + | Anion Gap | 9 | mmol/L | [facility] | | | | | | [facility] | | | | | | [facility] | | | | | | CENTER | | | | | | LABORATORY | | + +---------+ + + + | Glucose | 87 | 74 - 106 mg/dL | [facility] | | | | | | [facility] | | | | [facility] | [facility] | | | | | | [facility] | | | | | | LABORATORY | | + +---------+ + + + | BUN | 11 | 7 - 18 mg/dL | [facility] | | | | | | [facility] | | | | | | [facility] | | | | | | CENTER | | | | | | LABORATORY | | + +---------+ + + + | Creatinine | 0.66 | 0.60 - 1.30 | [facility] | | | | | mg/dL | [facility] | | | | | | [facility] | | | | | | CENTER | | | | | | LABORATORY | | + +---------+ + + + | eGFR if not | | >=60 | [facility] | | | | | mL/min/1.73m2 | [facility] | | | [facility] | | | MEDICAL | | | | | | CENTER | | | | | | LABORATORY | | + +---------+ + + + | Calcium | 8.8 | 8.5 - 10.1 | [facility] | | | | | mg/dL | [facility] | | [facility] | | | | | | [facility] | | | | | | LABORATORY | | + +---------+ + + + | Albumin | 4.0 | 3.2 - 5.3 g/dL | [facility] | | | | | | [facility] | | | | | | [facility] | | | | | | CENTER | | | | | | LABORATORY | | + +---------+ + + + | Bilirubin | 0.3 | 0.0 - 1.0 mg/dL | [facility] | | | Total | | | [facility] | | | | | | [facility] | | | | | | CENTER | | | | | | LABORATORY | | + +---------+ + + + | Total | 8.4 (H) | 6.4 - 8.2 g/dL | [facility] | | | Protein | | | [facility] | | | | | | [facility] | | | | | | CENTER | | | | | | LABORATORY | | + +---------+ + + + | AST | 29 | 15 - 37 U/L | [facility] | | | | | | [facility] | | | | | | [facility] | | | | | | CENTER | | | | | | LABORATORY | | + +---------+ + + + | ALT | 29 | 12 - 78 U/L | [facility] | | | | | | [facility] | | | | | | [facility] | | | | | | CENTER | | | | | | LABORATORY | | + +---------+ + + + | Alkaline | 96 | 46 - 132 U/L | [facility] | | | Phosphatase | | | [facility] | | | | | | [facility] | | | | | | CENTER | | | | | | LABORATORY | | + +---------+ + + + | Globulin | 4.4 | g/dL | [facility] | | | | | | [facility] | | | | | | [facility] | | | | | | CENTER | | | | | | LABORATORY | | + +---------+ + + + | Albumin/Jodie | 0.9 | | [facility] | | | bulin Ratio | | | [facility] | | [facility] | | | | | | [facility]ENTER | | | | | | LABORATORY | | + +---------+ + + + | BUN/Creatin | 16.7 | | [facility] | | | ine Ratio | | | [facility] | | | [facility] | [facility] | | | | | | [facility]ENTER | | | | | | LABORATORY | | + +---------+ + + + + + | Specimen | + + | Blood | + + + + + | Narrative | Performed At | + + + | UNABLE TO CALCULATE GFR ON PATIENTS UNDER 17 YEARS OLD. | [facility] | | | [facility] | | | [facility] | | | LABORATORY | + + + + + + + + | Performing | Address | City/State/Zipcode | Phone Number | | Organization | | | | + + + + + | [facility] | [address] | [place] [address] | [phone] | | [facility] | | | | | LABORATORY | | | | + + + + + CBC with Differential (05/16/2014 11:10 AM MST) + + + + + + | Component | Value | Ref Range | Performed | Pathologist | | | | | At | Signature | + + + + + + | WBC | 10.9 (H) | 4.0 - 10.1 | [facility] | | | | | 10*3/uL | [facility] | | | | | | [facility] | | | | | | LABORATORY | | + + + + + + | RBC | 5.31 | 3.92 - 5.58 | [facility] | | | | | 10*6/uL | [facility] | [facility] | | | | | | [facility] | | | | | | LABORATORY | | + + + + + + | Hemoglobin | 14.8 | 12.1 - 17.1 | [facility] | | | | | g/dL | [facility] | [facility] | | | | | | CENTER | | | | | | LABORATORY | | + + + + + + | Hct | 45.7 | 38.3 - 51.1 % | [facility] | | | | | | [facility] | | | [facility] | | | | | | [facility] | | | | | | LABORATORY | | + + + + + + | MCV | 86.1 | 83.0 - 103.0 fL | [facility] | | | | | | [facility] | | | | [facility] | [facility] | | | | | | C[facility] | | | | | | LABORATORY | | + + + + + + | MCH | 27.9 | 26.9 - 34.0 pg | [facility] | | | | | | [facility] | | | | [facility] | [facility] | | | | | | CENTER | | | | | | LABORATORY | | + + + + + + | MCHC | 32.4 | 31.5 - 36.0 | [facility] | | | | | g/dL | [facility] | [facility] | | | | | | CENTER | | | | | | LABORATORY | | + + + + + + | RDW-CV | 13.8 | 12.0 - 15.0 % | [facility] | | | | | | [facility] | | | | | | [facility] | | | | | | CENTER | | | | | | LABORATORY | | + + + + + + | Platelet | 304 | 140 - 440 | [facility] | | | Count | | 10*3/uL | [facility] | | | | | | [facility] | | | | | | LABORATORY | | + + + + + + | MPV | 11.1 (H) | 7.0 - 10.5 fL | [facility] | | | | | | [facility] | | | [facility] | | | | | | CENTER | | | | | | LABORATORY | | + + + + + + | % | 72.1 | 42.0 - 75.0 % | [facility] | | | Neutrophils | | | [facility] | | | [facility] | | | | | | LABORATORY | | + + + + + + | % | 19.4 (L) | 20.0 - 51.0 % | [facility] | | | Lymphocytes | | | [facility] | | | [facility] | CENTER | | | | | | LABORATORY | | + + + + + + | % Monocytes | 7.3 | 5.3 - 12.2 % | [facility] | | | | | | [facility] | | | [facility] | [facility] | | | | | | LABORATORY | | + + + + + + | % | 0.6 | 0.0 - 4.0 % | [facility] | | | Eosinophils | | | [facility] | | | [facility] | CENTER | | | | | | LABORATORY | | + + + + + + | % Basophils | 0.3 | 0.0 - 3.0 % | [facility] | | | | | | [facility] | | | | | | CENTER | | | | | | LABORATORY | | + + + + + + | % Immature | 0.3 | 0.0 - 2.0 % | [facility] | | | Granulocyte | | | [facility] | | | [facility] | | | [facility]ICAL | | | | | | CENTER | | | | | | LABORATORY | | + + + + + + | Absolute | 7.85 | K/uL | [facility] | | | Neutrophils | | | [facility] | | | | | | CENTER | | | | | | LABORATORY | | + + + + + + | Absolute | 2.11 | K/uL | [facility] | | | Lymphocytes | | | [facility] | [facility] | | | [facility] | CENTER | | | | | | LABORATORY | | + + + + + + | Absolute | 0.80 | K/uL | [facility] | | | [...] + + | Absolute | 0.03 | K/uL | [facility] | | | [...] + + + | [facility] | [address] | [place] [address] | [phone] | | [facility] | | | | | LABORATORY | | | | + + + + + documented in this encounter Visit Diagnoses + + | Diagnosis | + + | Viral gastroenteritis - Primary Intestinal infection due to other organism, not | | elsewhere classified | + + | Acanthosis nigricans Acquired acanthosis nigricans | + + | Unprotected sexual intercourse Problems related to high-risk sexual behavior | + + documented in this encounter
--- OUTSIDE RECORDS SUMMARY | ~2019-11-21 | XMS | Encounter Summary ---
Demographics + + + | Address | [address] | | | [place] [address] | + + + | Home Phone | | + + + | Preferred Language | Unknown | + + + | Marital Status | Single | + + + | Confucianism Affiliation | Unknown | + + + | Race | Unknown | + + + | Ethnic Group | Unknown | + + + Author + + + | Author | [facility] | | | and [place] | + + + | Organization | 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 | | | | 4 | | capsule | | | | | | + + + +---------+ + + documented as of this encounter Plan of Treatment Not on filedocumented as of this encounter Procedures + +--------+ + + + | Procedure Name | Priori | Date/Time | Associated Diagnosis | Comments | | | ty | | | | + +--------+ + + + | HCG, SERUM, QUANT | Routin | 02/16/2014 | | Results for this | | | e | 12:12 PM | | procedure are in the | | | | MDT | | results section. | + +--------+ + + + documented in this encounter Results HCG, Serum, Quant (02/16/2014 12:12 PM MDT) + + + + + + | Component | Value | Ref Range | Performed | Pathologist | | | | | At | Signature | + + + + + + | hCG Quant, | <1Comment: WEEKS POST | 0 - 7 mIU/mL | [facility] | | | Serum | LMP | | [facility] | | | | APPROX Beta-HCG RANGE | | MEDICAL | | | | (mIU/mL) | | CENTER | | | | NON- | | LABORATORY | | | | | | | | | | < 5 INDETERMINATE | | | | | | | | | | | | 5 - 25 3 - 4 | | | | | | WEEKS | | | | | | 9 - | | | | | | 130 4 - 5 WEEKS | | | | | | | | | | | | 75 - 2,600 5 - 6 | | | | | | WEEKS | | | | | | 850 - | | | | | | 20,800 6 - 7 WEEKS | | | | | | | | | | | | 4,000 - 100,200 7 | | | | | | - 12 WEEKS | | | | | | 11,500 | | | | | | - 289,000 12 - 16 WEEKS | | | | | | | | | | | | 18,300 - 137,000 16 - | | | | | | 29 WEEKS (2ND | | | | | | TRIMESTER) 1,400 - | | | | | | 53,000 29 - 41 WEEKS | | | | | | (3RD TRIMESTER) 940 | | | | | | - 60,000 | | | | + + + + + + + + | Specimen | + + | Blood | + + + + + + + | Performing | Address | City/State/Zipcode | Phone Number | | Organization | | | | + + + + + | [facility] | [address] | [place] [address] | [phone] | | MEDICAL CENTER | | | | | LABORATORY | | | | + + + + + documented in this encounter Visit Diagnoses + + | Diagnosis | + + | | + + documented in this encounter"
--- OUTSIDE RECORDS SUMMARY | ~2019-11-21 | XMS | Encounter Summary ---
Demographics + + + | Address | [address] | | | [place] [address] | + + + | Home Phone | | + + + | Preferred Language | Unknown | + + + | Marital Status | Single | + + + | Advent Affiliation | Unknown | + + + | Race | Unknown | + + + | Ethnic Group | Unknown | + + + Author + + + | Author | [facility] | | | and [place] | + + + | Organization | [facility] | | | and [place] | + + + | Address | Unknown | + + + | Phone | Unavailable | + + + Support + + + + + | Name | Relationship | Address | Phone | + + + + + | Aaron Giron | [place] [address] | | + + + + + Care Team Providers + +------+ + | Care Magnetic Tester Name | Role | Phone | + +------+ + | Catracho Mullen DO | PCP | | + +------+ + Reason for Visit + + + | Reason | Comments | + + + | Follow-up | cycle started 05/19 on prometrium | + + + Encounter Details +--------+ + + + + | Date | Type | Department | Care Team | Description | +--------+ + + + + | 05/20/ | Telephone | [facility] | Tiera Blanc, | Follow-up (cycle | | 2016 | | MEDICINE [address] | RN | started 05/19 on | | | | [address] | | prometrium) | | | | [place] | | | | | | [address] | | | | | | [phone] | | | +--------+ + + + [...] as of this encounter Plan of Treatment + +---------+--------+ + + | Name | Type | Priori | Associated Diagnoses | Order Schedule | | | | ty | | | + +---------+--------+ + + | [place] | Imaging | Routin | Primary female | Expected: | | Hysterosalpingogram | | e | infertility | 05/20/2016, Expires: | | | | | Pre-procedure lab | 05/20/2017 | | | | | exam | | + +---------+--------+ + + | , Urine, | Lab | Routin | Primary female | 1 Occurrences | | Qual | | e | infertility | starting 05/20/2016 | | | | | Pre-procedure lab | until 05/27/2017 | | | | | exam | | + +---------+--------+ + + documented as of this encounter Visit Diagnoses + + | Diagnosis | + + | Primary female infertility - Primary Female infertility of unspecified origin | + + | Pre-procedure lab exam Pre-procedural laboratory examination | + + documented in this encounter"
--- OUTSIDE RECORDS SUMMARY | ~2019-11-21 | XMS | Encounter Summary ---
Demographics + + + | Address | [address] | | | [place] [address] | + + + | Home Phone | | + + + | Preferred Language | Unknown | + + + | Marital Status | Single | + + + | Buddhism Affiliation | Unknown | + + + | Race | Unknown | + + + | Ethnic Group | Unknown | + + + Author + + + | Author | [facility] | | | and [place] | + + + | Organization | [facility] | | | and [place] | + + + | Address | Unknown | + + + | Phone | Unavailable | + + + Support + + + + + | Name | Relationship | Address | Phone | + + + + + | Aaron Giron | [place] [address] | | + + + + + Care Team Providers + +------+ + | Care Retail Maintenance Technician Name | Role | Phone | + +------+ + | Catracho Mullen DO | PCP | | + +------+ + Encounter Details +--------+---------+ + + + | Date | Type | Department | Care Team | Description | +--------+---------+ + + + | 03/22/ | Office | [facility] | Connie Gaines, | Missed period | | 2013 | 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 | [facility] | 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 [address] | (Primary Dx); | | | | [address] | [place] [address] | Medical clearance | | | | [place], [place] | [phone] | for incarceration; | | | | [address] | | Amenorrhea; Exposure | | | | [phone] | | to STD | +--------+---------+ + + + Social History [...] + + + | Blood Pressure | 110/82 | 03/22/2014 1:54 PM | | | | | MDT | | + + + + + | Pulse | 68 | 03/22/2014 1:54 PM | | | | | MDT | | + + + + + | Temperature | 36.9 C (98.4 F) | 03/22/2014 1:54 PM | | | | | MDT | | + + + + + | Respiratory Rate | 18 | 03/22/2014 1:54 PM | | | | | MDT | | + + + + + | Oxygen Saturation | 97% | 03/22/2014 1:54 PM | | | | | MDT | | + + + + + | Inhaled Oxygen | - | - | | | Concentration | | | | + + + + + | Weight | 105.2 kg (232 lb) | 03/22/2014 1:54 PM | | | | | MDT | | + + + + + | Height | 170.2 cm (5' 7") | 03/22/2014 1:54 PM | | | | | MDT | | + + + + + | Body Mass Index | 36.34 | 03/22/2014 1:54 PM | | | | | PDT | | + + + + + documented in this encounter Progress Notes Connie Gaines NP - 03/22/2014 3:59 PM MDTFormatting of this note might be different fr om the original. PROGRESS NOTE Connie Gaines NP Patient Name: Norma Green Date of : 2000 Date of Service: 03/22/2014 ASSESSMENT / PLAN: Medical clearance for incarceration The patient is cleared for inclusion in general population. There is no noted communicable disease. Amenorrhea Negative test MEDICATION ADJUSTMENTS New Prescriptions No medications on file There are no discontinued medications. NEW ORDERS Orders Placed This Encounter Procedures HCG, Urine, Qual SUBJECTIVE: Norma is a 13 y.o. female who presents to the office today. Patient presents today for a wellness evaluation for incarceration. She has had unprotected sex and believes that she m ight have a positive test she would like to have it tested today. Does have a his tory of genital herpes. She is interested in having STD workup. OBJECTIVE: BP 110/82 | Pulse 68 | Temp 36.9 C (98.4 F) (Temporal) | Resp 18 | Ht 1.702 m (5' 7") | Wt 105.235 kg (232 lb) | BMI 36.33 kg/m2 | SpO2 97% | LMP 01/26/2014 | ? No General: Alert, oriented, and in no acute distress. Obese HEENT: Normocephalic, features symmetric. PERRLA, EOMI. There is no icterus or injection. Nares are patent. Ear canals are clear, TM's are pearly luong. Moist mucous membranes. Neck: Supple, no JVD, no lymphadenopathy, no thyromegally Pulmonary: Chest is clear to auscultation and percussion. There are no rales, rhonchi, or wheezes Cardiovascular: Patient has regular rate and rhythm. There is no murmur, rub, or gallop. Abdomen: Soft, non-distended, without mass, organomegaly, bruit, or tenderness. Extremities: Full ROM in all 4 extremities. Pulses are 2+, capillary refill is less than 2 seconds. No edema. Neuro: Alert and oriented x3. CN II-XII grossly intact. No neurosensory or motor deficit s on this examination. REVIEW OF SYSTEMS: Constitutional symptoms: No fever, weight loss, extreme fatigue. Denies weight gain Eyes: No double vision, sudden loss of vision HEENT: No sore throat, runny nose, ear pain Breasts: Denies breast discharge or pain Cardiovascular: No chest pain, palpitations Respiratory: No cough, wheezing, shortness of breath Gastrointestinal: No nausea, vomiting, abdominal pain, constipation, diarrhea, blood in st ool Genitourinary: No frequent or painful urination, bloody urine positive history of Chlamydi a Skin: No rash, changing mole Neurological: No headache, persistent weakness or numbness on one side of the body, fallin g Musculoskeletal: No joint pain, muscle weakness Psychiatric: No depression, anxiety, suicidal thoughts Endocrine: No excessive thirst, cold or heat intolerance, breast mass Hematologic: No unusual bruising or bleeding, enlarged lymph nodes Allergic: No hay fever HISTORIES: Patient's medications, allergies, past medical, surgical, social and family histories were reviewed and updated as appropriate. Allergies Allergen Reactions Amoxicillin Aripiprazole seizure Cefuroxime Axetil Imipramine hallucinations Penicillins No current outpatient prescriptions on file prior to visit. History Substance Use Topics Smoking status: Former Smoker Smokeless tobacco: Not on file Alcohol Use: Not on file Signed by: Connie Gaines NP 03/22/2014, 15:59 This document may have been created using voice recognition technology. Every effort was m myrna to ensure accuracy; however, inadvertent computerized remote encoding center manager errors may be presen t. documented in this e ncounter Plan of Treatment + + +--------+ + + | Name | Type | Priori | Associated Diagnoses | Order Schedule | | | | ty | | | + + +--------+ + + | C. trachomatis and | Microbiolog | Routin | Exposure to STD | 1 Occurrences | | N. gonorrhoeae, NAAT | y | e | | starting 03/22/2014 | | (APTIMA) | | | | until 03/22/2015 | + + +--------+ + + documented as of this encounter Results HCG, Urine, Qual (03/22/2014 11:55 AM MDT) + + + + + [...] | + + + + + | [facility] | [address] | [place] [address] | [phone] | | MEDICAL CENTER | | | | | LABORATORY | | | | + + + + + documented in this encounter Visit Diagnoses + + | Diagnosis | + + | Missed period - Primary Irregular menstrual cycle | + + | Medical clearance for incarceration | + + | Amenorrhea Absence of menstruation | + + | Exposure to STD Contact with or exposure to venereal diseases | + + documented in this encounter
--- OUTSIDE RECORDS SUMMARY | ~2019-11-21 | XMS | Encounter Summary ---
Demographics + + + | Address | [address] | | | [place] [address] | + + + | Home Phone | | + + + | Preferred Language | Unknown | + + + | Marital Status | Single | + + + | Jainism Affiliation | Unknown | + + + | Race | Unknown | + + + | Ethnic Group | Unknown | + + + Author + + + | Author | [facility] | | | and [place] | + + + | Organization | [facility] | | | and [facility] | + + + | Address | Unknown | + + + | Phone | Unavailable | + + + Support + + + + + | Name | Relationship | Address | Phone | + + + + + | Aaron Giron | [place] [address] | | + + + + + Care Team Providers + +------+ + | Care Foxer Name | Role | Phone | + +------+ + | Catracho Mullen DO | PCP | | + +------+ + Reason for Visit +--------+ + | Reason | Comments | +--------+ + | Other | Needs test with results today | +--------+ + Encounter Details +--------+---------+ + + + | Date | Type | Department | Care Team | Description | +--------+---------+ + + + | 02/16/ | Office | [facility] | James Butt, | (Primary | | 2013 | 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 | [facility] | 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); Menstrual | | | | [address] | Dr Roth, | abnormality | | | | [place], [place] | [place] [id number] | | | | | [address] | [phone] | | | | | [phone] | | | +--------+---------+ + + + [...] + + + | Blood Pressure | 110/78 | 02/16/2014 11:18 AM | | | | | MDT | | + + + + + | Pulse | 82 | 02/16/2014 11:18 AM | | | | | MDT | | + + + + + | Temperature | 36.8 C (98.3 F) | 02/16/2014 11:18 AM | | | | | MDT | | + + + + + | Respiratory Rate | 18 | 02/16/2014 11:18 AM | | | | | MDT | | + + + + + | Oxygen Saturation | 96% | 02/16/2014 11:18 AM | | | | | MDT | | + + + + + | Inhaled Oxygen | - | - | | | Concentration | | | | + + + + + | Weight | 104.3 kg (230 lb) | 02/16/2014 11:18 AM | | | | | MDT | | + + + + + | Height | 172.7 cm (5' 8") | 02/16/2014 11:18 AM | | | | | MDT | | + + + + + | Body Mass Index | 34.97 | 02/16/2014 11:18 AM | | | | | PDT | | + + + + + documented in this encounter Patient Instructions Patient Instructions James Guerra FNP - 02/16/2014 11:55 AM MDT : Common Questions There are plenty of myths and old wives tales surrounding . You may need help fact from fiction. On this sheet, you ll find answers to a few common ques tions. If you have other questions, talk with your health care provider. Will Working Harm My Baby? In most cases, working throughout your is not harmful at all. There may be concer ns if the job involves dangerous machinery or chemicals, lifting, or standing for very long periods of time. Talk to your health care provider and employer about your particular job an d . Why Can t I Change the Cat Litter Box? Cats carry a disease called toxoplasmosis. In adult humans, it shows up as a mild infection of the blood and organs. If you are infected during , the baby s brain and eyes could be damaged. To be safe, have someone else change the litter. If you must handle it, we ar a paper mask over your nose and mouth. Also, wear gloves and wash your hands afterward. Which Medications Are Safe? No prescription or aqwa-fdc-uriarum drug is safe for everyone all of the time. But sometime s medications are needed. Be sure your health care provider knows you are . Then u se only the medications he or she advises you to take. Is It True That I Can Overheat My Baby? Yes. To avoid making your baby too warm: Don t sit in a jacuzzi. A long, warm bath is fine, but not in water over 100F. Exercise less intensely if you feel fatigued. Base your workout on how you feel, not you r heart rate. Heart rates aren t a good way to measure effort during . Can I Lift and Carry Safely? Yes, if your health care provider doesn t tell you otherwise. Learn to lift and carry saf lucy to avoid injury and reduce back pain during . To protect your back: Bend at the knees to bring the load nearer. Get a good hand brim ironer. Test the weight of the load. Tighten your abdomen. Exhale as you lift. Lift with your legs, not with your back. Carry the load close to your body. Hold the load so you can see where you are going. What If I Get Sick? Most women get sick at least once during . Talk with your health care provider if you do. Most likely it will not affect your . Get plenty of rest and fluids, and ea t what you can. Talk to your health care provider before taking any medications. [id number] Gab Alaniz, [address] [facility], [place] [address]. All rights reserve d. This information is not intended as a substitute for professional medical care. Always fo llow your healthcare professional's instructions. documented in this encounter Progress Notes James Guerra FNP - 02/16/2014 2:37 PM MDTFormatting of this note might be diffe rent from the original. PATIENT NAME: Norma Green : 2000: AGE: 13 y.o. ENCOUNTER DATE: 02/16/2014 BETHANY Wilkes HISTORY OF PRESENT ILLNESS: Norma is a 13 y.o. year old female who presents for a test. She feels she is h aving symptoms of and had a "slightly positive" home test this week. CURRENT ASSESSMENT AND PLAN Menstrual abnormality PT's LMP was January 02. Missed january. She reports having unprotected sex between and jan 26. She took home preg test which she said was "slightly positive". Patient ghada cribes symptoms including breast tenderness, increased vaginal discharge, low abnormal tende rness and nausea and vomiting. She feels she could have potentially been exposed to STD. T esting and treatment for this was discussed. As well as discussing cessation of alcohol and cigarettes during . Patient has been on Prozac, but discontinued this medication when she felt she was . She says that she has been trying to become and wou ld like to her fiance, who is age 18. Quantitative hCG was less than 1= negative Plan: I attempted to discuss control options with patient and her mother. Patient is vanessa ntly refusing, again, saying that she is trying to become . I did recommend patient return to clinic or health department for STD testing I did discuss that some of her symptoms, including abdominal tenderness, increased vaginal discharge, and nausea might be due to pelvic inflammatory disease related to untreated sexua lly transmitted diseases. FOLLOWUP No Follow-up on file. MEDICATION ADJUSTMENTS New Prescriptions No medications on file There are no discontinued medications. NEW ORDERS Orders Placed This Encounter Procedures HCG, Serum, Quant History Smoking status Current Every Day Smoker -- 1.0 packs/day for 1 years Types: Cigarettes Start date: 06/28/2013 Smokeless tobacco Never Used Past Medical History Diagnosis Date Depression Asthma Patient Active Problem List Diagnosis Date Noted POA Menstrual abnormality 02/16/2014 Unknown Past Surgical History Procedure Date Appendectomy Mouth surgery Tympanostomy tube placement Family History Problem Relation Age of Onset Heart disease Mother Diabetes Mother High cholesterol Mother High blood pressure Mother Sleep Apnea Mother COPD Mother Depression Mother High cholesterol Maternal Aunt High blood pressure Maternal Aunt Sleep Apnea Maternal Aunt Depression Maternal Aunt Fibromyalgia Maternal Aunt Kidney disease Maternal Aunt High cholesterol Maternal Uncle Thyroid disease Maternal Grandmother High cholesterol Maternal Grandmother Depression Maternal Grandmother Fibromyalgia Maternal Grandmother Diabetes Maternal Grandfather Cancer Maternal Grandfather High cholesterol Maternal Grandfather Depression Maternal Grandfather High cholesterol Maternal Aunt Depression Maternal Aunt Fibromyalgia Maternal Aunt High cholesterol Maternal Aunt Depression Maternal Aunt History Social History Marital Status: Single Spouse Name: N/A Number of Children: N/A Years of Education: N/A Social History Main Topics Smoking status: Current Every Day Smoker -- 1.0 packs/day for 1 years Types: Cigarettes Start date: 06/28/2013 Smokeless tobacco: Never Used Alcohol Use: None Drug Use: None Sexually Active: None Other Topics Concern None Social History Narrative None Current Outpatient Prescriptions Medication Sig Dispense Refill FLUoxetine (PROZAC) 20 mg capsule Take 20 mg by mouth Daily. No current outpatient prescriptions on file prior to visit. Allergies Allergen Reactions Aripiprazole Other (See Comments) Seizures Upton Nausea And Vomiting Imipramine Other (See Comments) Hallucinations Penicillins Rash REVIEW OF SYSTEMS: REVIEW OF SYSTEMS: Patient denies fever, chills, chest pain, shortness of breath, lower ext remity swelling, or bowel or bladder problems. She does report moderate low abdomen tendern ess, nausea, and vomiting, and increased vaginal discharge, which she describes as thick/whi te. OBJECTIVE: Vitals with Orthostatic BP with comments 02/16/2014 SYSTOLIC 110 DIASTOLIC 78 Pulse 82 Temp 98.3 Resp 18 Weight 230 lbs Height 5' 8" SPO2 96 BMI 35 kg/m2 General: Alert, oriented, and in no acute distress. Neck: Supple, no lymphadenopathy or thyromegaly Pulmonary: Chest is clear to auscultation. There are no rales, rhonchi, or wheezes. No u se of intercostal or accessory muscles. Cardiovascular: Patient has regular rate and rhythm. There is no murmur, rub, or gallop. Abdomen: Soft and non-distended, bowel sounds are active in all four quadrants, with organ omegaly or masses, no bruit. Tenderness at entire low abd. Extremities: Full ROM in all 4 extremities. Pulses are 2+, capillary refill is less than 2 seconds. No edema. Neuro: Alert and oriented x3. CN II-XII grossly intact. Signed by: BETHANY Wilkes Renetta Ross ra, RN - 02/16/2014 11:32 AM MDTPt needs results of test today as requested by [facility] officer. Home test was slightly positive. Test at [facility] was neg ative. Pt missed her last period, nauseated, weight gain, breasts tender with milky discharg e, stomach pain. Crow mented in this encounter Plan of Treatment Not on filedocumented as of this encounter Results HCG, Serum, Quant (02/16/2014 [...] | + + + + + | [facility] | [address] | [place] [address] | [phone] | | MEDICAL CENTER | | | | | LABORATORY | | | | + + + + + documented in this encounter Visit Diagnoses + + | Diagnosis | + + | - Primary | + + | Menstrual abnormality | + + documented in this encounter
--- OUTSIDE RECORDS SUMMARY | ~2019-11-21 | XMS | Encounter Summary ---
Demographics + + + | Address | [address] | | | [place] [address] | + + + | Home Phone | | + + + | Preferred Language | Unknown | + + + | Marital Status | Single | + + + | Bahai Affiliation | Unknown | + + + | Race | Unknown | + + + | Ethnic Group | Unknown | + + + Author + + + | Author | [facility] | | | and [place] | + + + | Organization | [facility] | | | and [facility] | + + + | Address | Unknown | + + + | Phone | Unavailable | + + + Support + + + + + | Name | Relationship | Address | Phone | + + + + + | Aaron Giron | [place] [address] | | + + + + + Care Team Providers + +------+ + | Care Staff Air Tactical Officer Name | Role | Phone | + [...] + + | 04/03/ | Office | [facility] | James Butt, | [facility] | | 2013 | Visit | [facility] | [facility] [address] [facility] | respiratory | | | | [address] | Dr Roth, | infection) (Primary | | | | [place], [place] | [place] [address] | Dx); Dysuria; | | | | [address] | [phone] | Exposure to STD | | | | [phone] | | | +--------+---------+ + + + [...] - 1.030 | [facility] | | | [place], | | | [facility] | | | [...] | Leukocyte | Negative | Negative | [facility] | | | Esterase, | | | [...] <10 (A) | None Seen /LPF | [facility] | | | Epithelial | | | [...] | [address] | [place] [address] | [phone] | | [facility] | | | | | LABORATORY | [...] | | DIAGNOSTICS | | | | Assay([employer] | | - [place] | [...] REFERENCE LAB | | Name: [facility] [address] Address: [address] | [facility] | | [address] [place] [id number] Director: [facility] - | | MD MATT | [place] | + + + + + + + + | Performing | Address | City/State/Zipcode | Phone Number | | Organization | | | | + + + + + | REFERENCE LAB | [address] | [place], [place] | [phone] | | [facility] - | [address] | [address] | | | [place] | | | [...]
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
--- OUTSIDE RECORDS SUMMARY | ~2019-11-21 | XMS | Encounter Summary ---
Demographics + + + | Address | [address] | | | [place] [address] | + + + | Home Phone | | + + + | Preferred Language | Unknown | + + + | Marital Status | Single | + + + | Anabaptism Affiliation | Unknown | + + + | Race | Unknown | + + + | Ethnic Group | Unknown | + + + Author + + + | Author | [facility] | | | and [place] | + + + | Organization | [facility] | | | and [place] | + + + | Address | Unknown | + + + | Phone | Unavailable | + + + Support + + + + + | Name | Relationship | Address | Phone | + + + + + | Aaron Giron | [place] [address] | | + + + + + Care Team Providers + +------+ + | Care Correctional Food Service Supervisor Name | Role | Phone | + [...] Results () | | 2013 | | [facility] | RN | | | | | [address] [facility] | | | | | | [place] | | | | | | [address] | | | | | | [phone] | | | +--------+ + + + [...]
--- OUTSIDE RECORDS SUMMARY | ~2019-11-21 | XMS | Encounter Summary ---
Demographics + + + | Address | [address] | | | [place] [address] | + + + | Home Phone [...] | Author | [facility] | | | and [place] [...] | Aaron Giron | [place] [address] | | + + + + + Care Team Providers + +------+ + | Care Biomedical Equipment Tech Name | Role | Phone | + +------+ + | Catracho Mullen DO | PCP | | + +------+ + Encounter Details +--------+ + + + + | Date | Type | Department | Care Team | Description | +--------+ + + + + | 03/22/ | Hospital | [facility] | Connie Gaines, | Missed period | | 2013 | Encounter | MEDICAL CENTER | CENTRAL STORES ATTENDANT [address] [facility] | | | | | LABORATORY [address] | [place] [address] | | | | | [address] [place] | [phone] | | | | | [address] | | | | | | [phone] | | | +--------+ + + + [...] + + documented as of this encounter Progress Connie Troncoso NP - 03/22/2014 3:54 PM MDT Quick Note: Negative test documented in this encounter Plan of Treatment Not on filedocumented as of this encounter Procedures + +--------+ + + + | Procedure Name | Priori | Date/Time | Associated Diagnosis | Comments | | | ty | | | | + +--------+ + + + | HCG, URINE, QUAL | Routin | 03/22/2014 | Missed period | Results for this | | | e | 11:55 AM | | procedure are in the | | | | MDT | | results section. | + +--------+ + + + documented in this encounter Results HCG, Urine, Qual (03/22/2014 [...] + + + + + | [facility] | [address] | [place] [address] | [phone] | | [facility] [place] | | | | | LABORATORY | | | | + + + + + documented in this encounter Visit Diagnoses + + | Diagnosis | + + | Missed period Irregular menstrual cycle | + + documented in this encounter"
--- OUTSIDE RECORDS SUMMARY | ~2019-11-21 | XMS | Encounter Summary ---
Demographics + + + | Address | [address] | | | [place] [address] | + + + | Home Phone | | + + + | Preferred Language | Unknown | + + + | Marital Status | Single | + + + | Voodoo Affiliation | Unknown | + + + | Race | Unknown | + + + | Ethnic Group | Unknown | + + + Author + + + | Author | [facility] | | | and [place] | + + + | Organization | [facility] | | | and [place]hin[place]ana | + + + | Address | Unknown | + + + | Phone | Unavailable | + + + Support + + + + + | Name | Relationship | Address | Phone | + + + + + | Aaron Giron | [place] [address] | | + + + + + Care Team Providers + +------+ + | Care Administrative Operations Coordinator Name | Role | Phone | + [...] + + + + | 12/06/ | Anesthesia | [facility] | Sandeep Starks, | | | 2014 | Event | [facility] | [employer]S [employer]PLICATION[employer] PROGRAMMING LEAD [address] | | | | | INTRA [address] | [place] [address] | | | | | [place] | [phone] | | | | | [address] | | | | | | [phone] | | | +--------+ + + + + Anesthesia Record + + + + + | Procedure Name | Responsible | Anesthesia Start | Anesthesia Stop Time | | | Anesthesiologist | Time | | + + + + + | Dental Restorations: | Sandeep Starks, | 12/06/14 1151 | 12/06/14 1358 | | 2 hours (N/A | [employer]AD | | | | Mouth) | | | | + + + + + +----+---+ + + | Da | T | Event | Comment | | te | i | | | | | m | | | | | e | | | +----+---+ + + | 06 | 1 | | | | /2 | 1 | | | | 5/ | 3 | | | | 20 | 5 | | | | 15 | | | | +----+---+ + + | | 1 | An Checkout | Pre-use anesthesia machine/equipment checkout. | | | 1 | | | | | 3 | | | | | 5 | | | +----+---+ + + | | 1 | An Start | Reassessment prior to anesthesia induction/procedure. | | | 1 | | | | | 5 | | | | | 1 | | | +----+---+ + + | | 1 | Preoxygenat | | | | 1 | ed | | | | 5 | | | | | 6 | | | +----+---+ + + | | 1 | An | | | | 2 | Induction | | | | 0 | | | | | 0 | | | +----+---+ + + | | 1 | An | | | | 2 | Intubation | | | | 0 | | | | | 2 | | | +----+---+ + + | | 1 | an grayson now | 2 small hive like blisters noted on dorsum Left hand after | | | 2 | | induction. No others noted on anterior trunk or extremities. | | | 0 | | Lungs clear, peek inspiratory pressures 16 cm | | | 4 | | | +----+---+ + + | | 1 | [place] | | | | 2 | 43-degrees | | | | 0 | | | | | 5 | | | +----+---+ + + | | 1 | Pre-Procedu | | | | 2 | ral Timeout | | | | 0 | Completed | | | | 6 | | | +----+---+ + + | | 1 | [place] off | | | | 3 | | | | | 5 | | | | | 2 | | | +----+---+ + + | | 1 | Breathing | | | | 3 | Spontaneous | | | | 5 | ly | | | | 2 | | | +----+---+ + + | | 1 | Oropharynx | | | | 3 | Suctioned | | | | 5 | | | | | 5 | | | +----+---+ + + | | 1 | Extubated | | | | 3 | Deep | | | | 5 | | | | | 5 | | | +----+---+ + + | | 1 | an stop | | | | 3 | data | | | | 5 | | | | | 5 | | | +----+---+ + + | | 1 | An Stop | Patient handed off to recovery nurse. | | | 5 | | | | | 8 | | | +----+---+ + + +------+ | Meds | +------+ + + + | Name | Total | + + + | midazolam (5mg/mL) | 5 mg | + + + | lidocaine 1% | 50 mg | + + + | fentaNYL | 50 mcg | + + + | propofol | 150 mg | + + + | rocuronium | 5 mg | + + + | glycopyrrolate | 0.2 mg | + + + | succinylcholine | 100 mg | + + + | lactated ringers (LR) infusion | 1,000 mL | + + + + + | Name | + + | N2O Flow Rate (L/Min) | + + | O2 Flow Rate (L/Min) | + + | Insp O2 | + + | Exp N2O | + + | Exp SEV | + + | Air Flow Rate (L/Min) | + + + + | No blood administrations on file. | + + +--------+ + + + | Type | Details | Placement | Removal | +--------+ + + + | [READ | 12/06/14; 1116; 12/06/14; 1437 | 12/06/14 1116 by | 12/06/14 1437 by | | ONLY] | | Charlie Flor RN | Charlie Flor RN | | | | | | | Periph | | | | | eral | | | | | IV - | | | | | Single | | | | | Lumen | | | | | | | | | +--------+ + + + | Airway | Placement Date: 12/06/14; | 12/06/14 1202 by | 12/06/14 1355 by | | | Placement Time: 1202; Mask | Sandeep Starks, | Sandeep Starks, | | | Ventilation: EZ; Airway Grade: I; | SYSTEM[employer]PLICATION[employer] PROGRAMMING LEAD | SYSTEMS [employer]PLICATION[employer] PROGRAMMING LEAD | | | Successful Technique: Mac; | | | | | Laryngoscope Blade Size: 3; | | | | | Attempts: 1; Airway Type: | | | | | endotracheal, oral, cuffed (cuff | | | | | soft, lube used); Size: 7; Airway | | | | | Tube Secured At: 0.2 m (7.87"); | | | | | Tube Reference Point: lip; | | | | | Trauma: none; Placement Check: | | | | | verified by capnography, verified | | | | | by auscultation; Placed By: | | | | | SYSTEMS APPLICATIONS PROGRAMMING LEAD; Removal Date: 12/06/14; | | | | | Removal Time: 1355 | | | +--------+ + + + documented in this encounter Social History + + + +--------+ + [...] filedocumented in this encounter Administered Medications + +--------+ +--------+------+------+ | Medication Order | MAR | Action | Dose | Rate | Site | | | Action | Date | | | | + +--------+ +--------+------+------+ | fentaNYL injection PRN, Pain, | Given | 12/07/19 | 50 mcg | | | | Starting Serena 12/06/14 at 1159, | | 15 11:59 | | | | | Anesthesia Intra-op | | AM MDT | | | | + +--------+ +--------+------+------+ +---+---+ | | | +---+---+ + +-------+ +--------+---+---+ | glycopyrrolate (ROBINUL) | Given | 12/07/19 | 0.2 mg | | | | injection PRN, Secretions, | | 15 11:54 | | | | | Starting Serena 12/06/14 at 1154, | | AM MDT | | | | | Anesthesia Intra-op | | | | | | + +-------+ +--------+---+---+ +---+---+ | | | +---+---+ + +---------+ +---+---+---+ | lactated ringers (LR) infusion | New Bag | 12/07/19 | | | | | at 10-100 mL/hr, Intravenous, | | 15 1:20 | | | | | CONTINUOUS, Starting Serena 12/06/14 | | PM MDT | | | | | at 1115, TKO., Pre-op | | | | | | + +---------+ +---+---+---+ +---------+ +---------+-------+---+ | New Bag | 12/07/19 | 100 mLs | 100 | | | | 15 11:19 | | mL/hr | | | | AM MDT | | | | +---------+ +---------+-------+---+ +---+---+ | | | +---+---+ + +-------+ +-------+---+---+ | lidocaine (PF) 1% injection | Given | 12/07/19 | 50 mg | | | | Intravenous, PRN, Starting Serena | | 15 12:00 | | | | | 12/06/14 at 1200, Anesthesia | | PM MDT | | | | | Intra-op | | | | | | + +-------+ +-------+---+---+ +---+---+ | | | +---+---+ + +-------+ +------+---+---+ | midazolam (VERSED) 5 mg/mL | Given | 12/07/19 | 5 mg | | | | injection Intravenous, PRN, | | 15 11:55 | | | | | Anxiety, Starting Serena 12/06/14 at | | AM MDT | | | | | 1155, Anesthesia Intra-op | | | | | | + +-------+ +------+---+---+ +---+---+ | | | +---+---+ + +-------+ +--------+---+---+ | propofol (DIPRIVAN) injection | Given | 12/07/19 | 150 mg | | | | PRN, Starting [facility] 12/06/14 at | | 15 12:00 | | | | | 1200, Anesthesia Intra-op | | PM MDT | | | | + +-------+ +--------+---+---+ +---+---+ | | | +---+---+ + +-------+ +------+---+---+ | rocuronium (ZEMURON) injection | Given | 12/07/19 | 5 mg | | | | PRN, Ventilator Dyssynchrony, | | 15 11:59 | | | | | Starting [facility] 12/06/14 at 1159, | | AM MDT | | | | | Anesthesia Intra-op | | | | | | + +-------+ +------+---+---+ +---+---+ | | | +---+---+ + +-------+ +--------+---+---+ | succinylcholine (ANECTINE) | Given | 12/07/19 | 100 mg | | | | injection Intravenous, PRN, | | 15 12:01 | | | | | Starting [facility] 12/06/14 at 1201, | | PM MDT | | | | | Anesthesia Intra-op | | | | | | + +-------+ +--------+---+---+ +---+---+ | | | +---+---+ documented in this encounter
--- OUTSIDE RECORDS SUMMARY | ~2019-11-21 | XMS | Encounter Summary ---
Demographics + + + | Address | [address] | | | [place] [address] | + + + | Home Phone | | + + + | Preferred Language | Unknown | + + + | Marital Status | Single | + + + | Sabianism Affiliation | Unknown | + + + | Race | Unknown | + + + | Ethnic Group | Unknown | + + + Author + + + | Author | [facility] | | | and [place] | + + + | Organization | [facility] | | | and [place]hinavana | + + + | Address | Unknown | + + + | Phone | Unavailable | + + + Support + + + + + | Name | Relationship | Address | Phone | + + + + + | Aaron Giron | [place] [address] | | + + + + + Care Team Providers + +------+ + | Care Cephalometric Tracer Name | Role | Phone | + +------+ + | Catracho Mullen DO | PCP | | + +------+ + Encounter Details +--------+ + + + + | Date | Type | Department | Care Team | Description | +--------+ + + + + | 12/28/ | Telephone | [facility] | Ravindra Valle | | | 2013 | | [facility] | MD Caterina [address] | | | | | [address] [facility] | [place] [address] | | | | | [place] | [phone] | | | | | [address] | | | | | | [phone] | | | +--------+ + + + + Social History + +-------+ +--------+------+ | Tobacco Use | Types | Packs/Day | Years | Date | | | | | Used | | + +-------+ +--------+------+ | Never Assessed | | | | | + +-------+ +--------+------+ + + + | Sex Assigned at [...]
--- OUTSIDE RECORDS SUMMARY | ~2019-11-21 | XMS | Encounter Summary ---
Demographics + + + | Address | [address] | | | [place] [address] | + + + | Home Phone | | + + + | Preferred Language | Unknown | + + + | Marital Status | Single | + + + | Confucianist Affiliation | Unknown | + + + | Race | Unknown | + + + | Ethnic Group | Unknown | + + + Author + + + | Author | [facility] | | | and [place] | + + + | Organization | [facility] | | | and Abhinavana | + + + | Address | Unknown | + + + | Phone | Unavailable | + + + Support + + + + + | Name | Relationship | Address | Phone | + + + + + | Aaron Giron | [place] [address] | | + + + + + Care Team Providers + +------+ + | Care Chassis Engineer Name | Role | Phone | + +------+ + | Catracho Mullen DO | PCP | | + +------+ + Encounter Details +--------+ + + + + | Date | Type | Department | Care Team | Description | +--------+ + + + + | 02/16/ | Hospital | [facility] | James Butt, | | | 2013 | Encounter | [facility] | PHOTOVOLTAIC INSTALLATION TECHNICIAN [address] | | | | | LABORATORY [address], | | | | | [place], [place] | [place] [address] | | | | | [address] | [phone] | | | | | [phone] | | | +--------+ + + + [...] + + + + + | [facility] | [address] | [place] [address] | [phone] | | MEDICAL CENTER | | | | | LABORATORY | | | | + + + + + documented in this encounter Visit Diagnoses + + | Diagnosis | + + | | + + documented in this encounter"
--- OUTSIDE RECORDS SUMMARY | ~2019-11-21 | XMS | Encounter Summary ---
Demographics + + + | Address | [address] | | | [place] [address] | + + + | Home Phone | | + + + | Preferred Language | Unknown | + + + | Marital Status | Single | + + + | Oriental Orthodox Affiliation | Unknown | + + + | Race | Unknown | + + + | Ethnic Group | Unknown | + + + Author + + + | Author | [facility] | | | and [place] [...] | Aaron Giron | [place] [address] | | + + + + + Care Team Providers + +------+ + | Care Sustainability Coach Name | Role | Phone | + +------+ + | Catracho Mullen DO | PCP | | + +------+ + Reason for Visit + + + | Reason | Comments | + + + | Pre-op Exam | dental work 12-06-14 - Dr. Guanaco Ozuna | + + + Encounter Details +--------+---------+ + + + | Date | Type | Department | Care Team | Description | +--------+---------+ + + + | 12/03/ | Office | [facility] | Junie Bowie, | Dental caries | | 2015 | Visit | [facility] | Leonela Diggs PA-C [address] | (Primary Dx) | | | | [address] | [address] [place], [place] | | | | | [place] | [id number] | | | | | [address] | | | | | | [phone] | | | +--------+---------+ + + + [...] + + + | Blood Pressure | 110/67 | 12/03/2014 1:10 PM | | | | | MDT | | + + + + + | Pulse | 88 | 12/03/2014 1:10 PM | | | | | MDT | | + + + + + | Temperature | 36.6 C (97.9 F) | 12/03/2014 1:10 PM | | | | | MDT | | + + + + + | Respiratory Rate | 18 | 12/03/2014 1:10 PM | | | | | MDT | | + + + + + | Oxygen Saturation | 96% | 12/03/2014 1:10 PM | | | | | MDT | | + + + + + | Inhaled Oxygen | - | - | | | Concentration | | | | + + + + + | Weight | 98.9 kg (218 lb) | 12/03/2014 1:10 PM | | | | | MDT | | + + + + + | Height | 167.6 cm (5' 6") | 12/03/2014 1:10 PM | | | | | MDT | | + + + + + | Body Mass Index | 35.19 | 12/03/2014 1:10 PM | | | | | PDT | | + + + + + documented in this encounter Progress Notes Leonela Mckeon PA-C - 12/03/2014 1:16 PM MDT PATIENT NAME: Norma Francis Angieanant : 2000: AGE: 14 y.o. ENCOUNTER DATE: 12/03/2014 [facility] Leonela Bowie PA-C Physician Teacher Of The Handicapped-Certified, [facility] [phone] CURRENT ASSESSMENT AND PLAN 1. Dental caries Pt is medically optimized for care under anesthesia direction. Follow up with PCP for all c hronic medical conditions. FOLLOWUP No Follow-up on file. NEW ORDERS No orders of the defined types were placed in this encounter. HISTORY OF PRESENT ILLNESS: 14 y.o. year old female presents today for H and P for procedure on December [address] Ozuna . Fixing dental caries. REVIEW OF MEDICAL HISTORY: Patient's medications, allergies, past medical, surgical, social and family histories were reviewed and updated as appropriate. REVIEW OF SYSTEMS: Denies fever, chills, nausea, vomiting, diarrhea, constipation, night sweats, blurred visio n, otic/nasal/opthalmic discharge or pain, dysphagia, odynophagia, dysphonia, hoarseness, co ughing, wheezing, chest pain, shortness of breath, hemoptysis, hematemesis, palpitations, cl audication, peripheral edema, PND, orthopnea, abdominal pain, change in bowel or bladder hab its, headache, numbness or tingling in the extremities, decreased range of motion, syncope, dizziness. OBJECTIVE: Physical Exam Vitals with Orthostatic BP with comments 05/15/2014 05/16/2014 06/01/2014 12/03/2014 SYSTOLIC 120 110 110 110 DIASTOLIC 62 64 77 67 Pulse 95 75 76 88 Temp 98 98.4 98 97.9 Resp 20 18 16 18 Weight 220 lbs 229 lbs 229 lbs 218 lbs Height 5' 7" 5' 7" 5' 8" 5' 6" SPO2 95 95 95 96 O2 Device (Oxygen Therapy) - - - - BMI 34.5 kg/m2 35.9 kg/m2 34.9 kg/m2 35.3 kg/m2 GENERAL APPEARANCE: Well developed, well nourished, alert and cooperative, and appears to b e in no acute distress. SKIN: Skin normal color, texture and turgor with no lesions or eruptions. HEAD: Normalcephalic atraumatic EYES: Pupils equal, round [...] or lesi ons. Teeth and gingiva in fair general condition. NECK: Neck supple, non-tender without [...] No masses. No hepatosplenomegaly. Negative McBurneys and Rocky. MUSKULOSKELETAL: Normal muscular development. Normal gait NEUROLOGICAL: Cranial nerves II-XII intact. Strength and sensation symmetric and intact thr oughout. Reflexes 2+ throughout. Cerebellar testing normal. PSYCHIATRIC: The mental examination revealed the patient was oriented to person, place, and time. The patient was able to demonstrate good judgement and reason, without hallucinations , abnormal affect or abnormal behaviors during the examination. Patient is not suicidal. Signed by: Leonela Bowie PA-C docum ented in this encounter Plan of Treatment Not on filedocumented as of this encounter Visit Diagnoses + + | Diagnosis | + + | Dental caries - Primary Unspecified dental caries | + + documented in this encounter
--- OUTSIDE RECORDS SUMMARY | ~2019-11-21 | XMS | Encounter Summary ---
Demographics + + + | Address | [address] | | | [place] [address] | + + + | Home Phone | | + + + | Preferred Language | Unknown | + + + | Marital Status | Single | + + + | Tenriism Affiliation | Unknown | + + + | Race | Unknown | + + + | Ethnic Group | Unknown | + + + Author + + + | Author | [facility] | | | and [place] [...] | Aaron Giron | [place] [address] | | + + + + + Care Team Providers + +------+ + | Care Medical Billing Supervisor Name | Role | Phone | + +------+ + | Catracho Mullen DO | PCP | | + +------+ + Reason for Visit + + + | Reason | Comments | + + + | Injections | Hep B | + + + Encounter Details +--------+ + + + + | Date | Type | Department | Care Team | Description | +--------+ + + + + | 06/20/ | Clinical | [facility] | Catracho Mullen, | Admission for | | 2014 | Support | [facility] | DO [address] | childhood | | | | [place], [place] | [place] [address] | immunizations | | | | [address] | [phone] | appropriate for age | | | | [phone] | | (Primary Dx) | +--------+ + + + + Social [...] + documented as of this encounter Progress Notes Ksenia Corrales RN - 06/20/2014 2:40 PM MSTPt here for 4th Hep b injection per H Azeb . Given IM to R deltoid. Pt tolerated wellElectronically signed by Ksenia Corrales RN at 1:45 PM PSTdocumented in this encounter Plan of Treatment Not on filedocumented as of this encounter Visit Diagnoses + + | Diagnosis | + + | Admission for childhood immunizations appropriate for age - Primary Routine infant or | | child health check | + + documented in this encounter"
--- OUTSIDE RECORDS SUMMARY | ~2019-11-21 | XMS | Encounter Summary ---
Demographics + + + | Address | [address] | | | [place] [address] | + + + | Home Phone | | + + + | Preferred Language | Unknown | + + + | Marital Status | Single | + + + | Alevism Affiliation | Unknown | + + + | Race | Unknown | + + + | Ethnic Group | Unknown | + + + Author + + + | Author | [facility] | | | and [place] | + + + | Organization | [facility] | | | and [place]hinavana | + + + | Address | Unknown | + + + | Phone | Unavailable | + + + Support + + + + + | Name | Relationship | Address | Phone | + + + + + | Aaron Giron | [place] [address] | | + + + + + Care Team Providers + +------+ + | Care Rehabilitation Team Lead Name | Role | Phone | + +------+ + | Catracho Mullen DO | PCP | | + +------+ + Encounter Details +--------+ + + + + | Date | Type | Department | Care Team | Description | +--------+ + + + + | 04/03/ | Hospital | [facility] | James Butt, | Dysuria; URI (upper | | 2013 | Encounter | [facility] | TELEPHONE 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 | | | | | + + + +---------+ + + | ciprofloxacin | Take 1 tablet by | 10 | 0 | 04/05/20 | | | (CIPRO) 500 mg | mouth 2 times daily | tablet | | 14 | 4 | | tablet | for 5 days. | | | | | + + [...] | + +--------+ + + + | URINALYSIS WITH | Routin | 04/03/2014 | Dysuria | Results for this | | MICROSCOPIC WITH | e | 2:41 PM | | procedure are in the | | CULTURE IF INDICATED | | MDT | | results section. | + +--------+ + + + | CULTURE, URINE | Routin | 04/03/2014 | Dysuria | Results for this | | | e | 2:41 PM | | procedure are in the | | | | MDT | | results section. | + +--------+ + + + | C. TRACHOMATIS AND | Routin | 04/03/2014 | URI (upper | Results for this | | N. GONORRHOEAE, NAAT | e | 2:41 PM | respiratory | procedure are in the | | (APTIMA) | | MDT | infection) | results section. | + +--------+ + + + documented in this encounter Results Culture, Urine (04/03/2014 2:41 PM MDT) + + + + + + | Component | Value | Ref Range | Performed | Pathologist | | | | | At | Signature | + + + + + + | Culture | Suggests contamination | | [facility] | | | | with urogenital or skin | | [facility] | | | | rod. | | MEDICAL | | | | | | CENTER | | | | | | LABORATORY | | + + + + + + + + | Specimen | + + | Urine | + + + + + | Narrative | Performed At | + + + | No significant growth day 1. | [facility] | | | LABORATORY | + + + + + + + + | Performing | Address | City/State/Zipcode | Phone Number | | Organization | | | | + + + + + | [facility] | [address] | [place] [address] | [phone] | | MEDICAL CENTER | | | [...] | | DIAGNOSTICS | | | | Assay([employer] | | - MOE | | [...] REFERENCE LAB | | Name: [facility] [address] Address: [address] | [facility] | | [address] [place] [id number] Director: RAYSHAWN Sullivan | DIAGNOSTICS - | | MD MATT | [place] | + + + + + + + + | Performing | Address | City/State/Zipcode | Phone Number | | Organization | | | | + + + + + | REFERENCE LAB | [address] | [place], [place] | [phone] | | [facility] - | [address] | [address] | | | [place] | | | | + + + + + Urinalysis with Microscopic with Culture if Indicated [...] - 1.030 | [facility] | | | [place], | | | [facility] | | | [...] Few (A) | None Seen /HPF | [facility] | | | Crystals, | | | [...] + | [facility] | [address] | [place] [address] | [phone] | | MEDICAL CENTER | | | | | LABORATORY | | | | + + + + + documented in this encounter Visit Diagnoses + + | Diagnosis | + + | Dysuria | + + | URI (upper respiratory infection) Acute upper respiratory infections of unspecified | | site | + + documented in this encounter"
--- OUTSIDE RECORDS SUMMARY | ~2019-11-21 | XMS | Encounter Summary ---
Demographics + + + | Address | [address] | | | [place] [address] | + + + | Home Phone | | + + + | Preferred Language | Unknown | + + + | Marital Status | Single | + + + | Congregation Affiliation | Unknown | + + + | Race | Unknown | + + + | Ethnic Group | Unknown | + + + Author + + + | Author | [facility] | | | and [place] | + + + | Organization | [facility] | | | and [place] | + + + | Address | Unknown | + + + | Phone | Unavailable | + + + Support + + + + + | Name | Relationship | Address | Phone | + + + + + | Aaron Giron | [place] [address] | | + + + + + Care Team Providers + +------+ + | Care Angiographer Name | Role | Phone | + +------+ + | Catracho Mullen DO | PCP | | + +------+ + Encounter Details +--------+---------+ + + + | Date | Type | Department | Care Team | Description | +--------+---------+ + + + | 03/22/ | Office | [facility] | Connie Gaines, | Missed period | | 2013 | Visit | [facility] | 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 documented in [...] | + + + + + | [facility] | [address] | [place] [address] | [phone] | | MEDICAL CENTER | | | [...]
--- OUTSIDE RECORDS SUMMARY | ~2019-11-21 | XMS | Encounter Summary ---
Demographics + + + | Address | [address] | | | [place] [address] | + + + | Home Phone | | + + + | Preferred Language | Unknown | + + + | Marital Status | Single | + + + | Catholic Affiliation | Unknown | + + + | Race | Unknown | + + + | Ethnic Group | Unknown | + + + Author + + + | Author | [facility] | | | and [place] | + + + | Organization | [facility] | | | and [place] | + + + | Address | Unknown | + + + | Phone | Unavailable | + + + Support + + + + + | Name | Relationship | Address | Phone | + + + + + | Aaron Giron | [place] [address] | | + + + + + Care Team Providers + +------+ + | Care Supervisor Word Processing Name | Role | Phone | + [...] | | | [address] | [address] [address] | | | | | [place] | [place] [address] | | | | | [address] | [phone] | | | | | [phone] | | | +--------+ + + + [...]
--- OUTSIDE RECORDS SUMMARY | ~2019-11-21 | XMS | Encounter Summary ---
Demographics + + + | Address | [address] | | | [place] [address] | + + + | Home Phone | | + + + | Preferred Language | Unknown | + + + | Marital Status | Single | + + + | Episcopalian Affiliation | Unknown | + + + | Race | Unknown | + + + | Ethnic Group | Unknown | + + + Author + + + | Author | [facility] | | | and [place] | + + + | Organization | [facility] | | | and [place] | + + + | Address | Unknown | + + + | Phone | Unavailable | + + + Support + + + + + | Name | Relationship | Address | Phone | + + + + + | Aaron Giron | [place] [address] | | + + + + + Care Team Providers + +------+ + | Care Office Supervisor Name | Role | Phone | + +------+ + | No, Physician | PCP | Unavailable | + +------+ + Reason for Visit +--------+ + | Reason | Comments | +--------+ + | Other | | +--------+ + Encounter Details +--------+---------+ + + + | Date | Type | Department | Care Team | Description | +--------+---------+ + + + | 07/12/ | Office | [facility] [place] | Wendy Jackson, | Anovulation (Primary | | 2019 | Visit | CLINIC [address] | DO [address] | Dx) | | | | [place], [place] | [address] | | | | | [address] | [place] [address] | | | | | [phone] | [phone] | | | | | | | | +--------+---------+ + + + [...] + + + | Blood Pressure | 120/76 | 07/12/2018 2:37 PM | | | | | MST | | + + + + + | Pulse | 110 | 07/12/2018 2:37 PM | | | | | MST | | + + + + + | Temperature | 36.4 C (97.6 F) | 07/12/2018 2:37 PM | | | | | MST | | + + + + + | Respiratory Rate | 16 | 07/12/2018 2:37 PM | | | | | MST | | + + + + + | Oxygen Saturation | 95% | 07/12/2018 2:37 PM | | | | | MST | | + + + + + | Inhaled Oxygen | - | - | | | Concentration | | | | + + + + + | Weight | 127.5 kg (281 lb) | 07/12/2018 2:37 PM | | | | | MST | | + + + + + | Height | 170.2 cm (5' 7") | 07/12/2018 2:37 PM | | | | | MST | | + + + + + | Body Mass Index | 44.01 | 07/12/2018 2:37 PM | | | | | PST | | + + + + + documented in this encounter Progress Notes Charito Anderson RN - 07/12/2018 2:20 PM MSTClomid and any other fertility medications will not be covered by Medicaid. She will have to pay out of pocket. Wendy Knott DO - 07/12/2018 2:20 P M Aly is here to follow up on fertility issues. She is currently taking letrozole 5 mg with normal monthly menses. Last cycle we added in metformin. Pt has recently lost 14 l bs. Pt reports she hasnt got a positive ovulation test kit yet. Will check labs values this cy sarah. Will also switch to clomid. Pt enc[facility]arged to [facility] on her wt loss journey Wendy Jackson documented in this encounter Plan of Treatment + +------+--------+ + + | Name | Type | Priori | Associated Diagnoses | Order Schedule | | | | ty | | | + +------+--------+ + + | Luteinizing Hormone | Lab | Routin | Anovulation | Expected: | | | | e | | 07/18/2018, Expires: | | | | | | 07/12/2019 | + +------+--------+ + + documented as of this encounter Visit Diagnoses + + | Diagnosis | + + | Anovulation - Primary Female infertility associated with anovulation | + + documented in this encounter
--- OUTSIDE RECORDS SUMMARY | ~2019-11-21 | XMS | Encounter Summary ---
Demographics + + + | Address | [address] | | | [place] [address] | + + + | Home Phone | | + + + | Preferred Language | Unknown | + + + | Marital Status | Single | + + + | Druze Affiliation | Unknown | + + + | Race | Unknown | + + + | Ethnic Group | Unknown | + + + Author + + + | Author | [facility] | | | and [place] | + + + | Organization | [facility] | | | and [place] | + + + | Address | Unknown | + + + | Phone | Unavailable | + + + Support + + + + + | Name | Relationship | Address | Phone | + + + + + | Aaron Giron | [place] [address] | | + + + + + Care Team Providers + +------+ + | Care Electrical And Radio Mechanic Name | Role | Phone | + +------+ + | Catracho Mullen DO | PCP | | + +------+ + Reason for Visit + + + | Reason | Comments | + + + | Amenorrhea | Last period 16-16. Has had 2 negative tests the last | | | 2-3 weeks ago. | + + + Encounter Details +--------+---------+ + + + | Date | Type | Department | Care Team | Description | +--------+---------+ + + + | 05/12/ | Office | [facility] | Moises Glover | Amenorrhea (Primary | | 2016 | Visit | MEDICINE [address] | [address] | Dx); Amenorrhea, | | | | [facility] | [facility] | secondary | | | | [place] | [place] [address] | | | | | [address] | [phone] | | | | | [phone] | | | +--------+---------+ + + + [...] + + + | Blood Pressure | 124/80 | 05/12/2016 2:26 PM | | | | | MST | | + + + + + | Pulse | 114 | 05/12/2016 2:26 PM | | | | | MST | | + + + + + | Temperature | - | - | | + + + + + | Respiratory Rate | 14 | 05/12/2016 2:26 PM | | | | | MST | | + + + + + | Oxygen Saturation | 99% | 05/12/2016 2:26 PM | | | | | MST | | + + + + + | Inhaled Oxygen | - | - | | | Concentration | | | | + + + + + | Weight | 121.1 kg (267 lb) | 05/12/2016 2:26 PM | | | | | MST | | + + + + + | Height | - | - | | + + + + + | Body Mass Index | - | - | | + + + + + documented in this encounter Progress Notes Moises Glover MD - 05/12/2016 2:48 PM Aly presents with complaint of having missed her menses for the past 2 months. Her test is negative and this is not the first time this happened. She skipped a couple of periods about a year ago and has done th at in the past, but for the most part in the past year her periods have become reliably on t he 17th of the month and are associated with typical premenstrual symptoms. She would like to get so is not using anything for contraception, but she is concerned about a his tory of chlamydia treated about 3 years ago. No obvious significant changes that should result in anovulation lately including medicatio ns or stress. Impression: Anovulatory cycle Disposition: I will give her a prescription for Prometrium to take 200 mg nightly for 12 ni ghts to induce withdrawal bleed. If she does not have a withdrawal menses after the progest erone or if her regular menses to resume she will let us know. I did offer her a hysterosal pingogram if she is concerned about . documented in this encounter Plan of Treatment Not on filedocumented as of this encounter Procedures + +--------+ + + + | Procedure Name | Priori | Date/Time | Associated Diagnosis | Comments | | | ty | | | | + +--------+ + + + | POCT TEST, | Routin | 05/12/2016 | Amenorrhea | Results for this | | URINE, QUAL | e | 2:31 PM | | procedure are in the | | | | MST | | results section. | + +--------+ + + + documented in this encounter Results POCT Test, Urine, QUAL (05/12/2016 2:31 PM MST) + + + + + + | Component | Value | Ref Range | Performed | Pathologist | | | | | At | Signature | + + + + + + | | Negative | Negative | | | | Test, | | | | | | Urine, POC | | | | | + + + + + + | Internal QC | Acceptable | | | | + + + + + + | Specific | | 1.010, 1.015, | | | | [place], | | 1.020, 1.025 | | | | POC | | | | | + + + + + + | Lot Number | | | | | + + + + + + | Expiration | | | | | | Date | | | | | + + + + + + + + | Specimen | + + | Urine specimen | | (specimen) | + + documented in this encounter Visit Diagnoses + + | Diagnosis | + + | Amenorrhea - Primary Absence of menstruation | + + | Amenorrhea, secondary Absence of menstruation | + + documented in this encounter"
--- OUTSIDE RECORDS SUMMARY | ~2019-11-21 | XMS | Clinical Summary ---
Demographics + + + | Address | [address] | | | [place] [address] | + + + | Home Phone | | + + + | Preferred Language | Unknown | + + + | Marital Status | Single | + + + | Pentecostalism Affiliation | Unknown | + + + | Race | Unknown | + + + | Ethnic Group | Unknown | + + + Author + + + | Author | [facility] | | | and [place] | + + + | Organization | [facility] | | | and [place] | + + + | Address | Unknown | + + + | Phone | Unavailable | + + + Support + + + + + | Name | Relationship | Address | Phone | + + + + + | Samantha Giron | [place] [address] | | + + + + + Care Team Providers + +------+ + | Care School Cafeteria Head Cook Name | Role | Phone | + +------+ + | No, Physician | PCP | Unavailable | + +------+ + Allergies + + + + + + | Active Allergy | Reactions | Severity | Noted | Comments | | | | | Date | | + + + + + + | Aripiprazole | | High | 03/22/20 | seizure | | | | | 14 | | + + + + + + | Amoxicillin | Rash | High | 03/22/20 | | | | | | 14 | | + + + + + + | Cefuroxime Axetil | | High | 03/22/20 | | | | | | 14 | | + + + + + + | Upton | Nausea And Vomiting | | 02/17/20 | | | | | | 14 | | + + + + + + | Imipramine | | High | 03/22/20 | hallucinations | | | | | 14 | | + + + + + + | Morphine | Other (See Comments) | | 07/09/19 | Tightness in chest | | | | | 18 | | + + + + + + | Penicillins | Hives | High | 03/22/20 | | | | | | 14 | | + + + + + + Medications + + + +---------+------+------+-------+ | Medication | Sig | Dispensed | Refills | Star | End | Statu | | | | | | t | Date | s | | | | | | Date | | | + + + +---------+------+------+-------+ | albuterol (PROAIR | Inhale 2 puffs into | 1 | 2 | 10/2 | | Activ | | HFA) 90 mcg/puff | the lungs every 6 | Inhaler | | 1/20 | | e | | inhaler | hours as needed for | | | 14 | | | | | Wheezing. | | | | | | + + + +---------+------+------+-------+ +---+ + | | Additional | | | InformationPatient | | | not taking. Reason: | | | ., Reported on | | | 10/19/2017 9:53 PM | +---+ + + + +--------+----+------+---+-------+ | Multiple | Take 1 tablet by | | 0 | | | Activ | | Vitamins-Minerals | mouth Daily. | | | | | e | | (ADULT MULTIVITAMIN | | | | | | | | WITH MINERALS/IRON) | | | | | | | | TABS | | | | | | | + + +--------+----+------+---+-------+ | | Take 1-2 tablets by | 10 | 0 | 05/0 | | Activ | | HYDROcodone-acetamin | mouth every 6 hours | tablet | | 8/20 | | e | | ophen (NORCO) 5-325 | as needed for up to | | | 18 | | | | mg per tablet | 10 doses. | | | | | | + + +--------+----+------+---+-------+ | metFORMIN | Take 1 tablet by | 60 | 5 | 11/2 | | Activ | | (GLUCOPHAGE) 850 mg | mouth 2 times daily | tablet | | /20 | | e | | tablet | (with breakfast & | | | 18 | | | | | dinner). | | | | | | + + +--------+----+------+---+-------+ | letrozole (FEMARA) | Take 2 tablets by | 10 | 11 | 01/2 | | Activ | | 2.5 mg tablet | mouth Daily. On | tablet | | 4/20 | | e | | | cycle days 3-7 | | | 19 | | | + + +--------+----+------+---+-------+ | clomiPHENE | Take 2 tablets by | 10 | 4 | 01/2 | | Activ | | (CLOMID) 50 MG | mouth Daily. On | tablet | | 03/03 | | e | | tablet | cycles day 5-10 | | | 19 | | | + + +--------+----+------+---+-------+ Active Problems + + + | Problem | Noted Date | + + + | Primary female infertility | 05/20/2016 | + + + | Amenorrhea, secondary | 05/12/2016 | + + + | History of ADHD | 06/01/2014 | + + + | History of depression | 06/01/2014 | + + + Resolved Problems +---------+ + + | Problem | Noted | Resolved | | | Date | Date | +---------+ + + | Dysuria | 04/07/20 | | | | 14 | 4 | +---------+ + + + + | Last Assessment & Plan: Patient describes some degree of pain | | with urination and frequency a which she believes is related to | | STD exposure.Plan:UA collected and resulted positive for small | | amount of bacteria and blood as well as nitrates and | | leukocytes.Ciprofloxacin as orderedAnticipate culture | + + + + + + | URI (upper respiratory infection) | 04/03/20 | | | | 14 | 4 | + + + + + + | Last Assessment & Plan: Pt reports URI sx for last 24 hrs, sx | | include cough with green sputum, congestion, body aches, ST and | | ear pain, Chills and fever. Upper respiratory infection is likely | | viral and she has no signs/symptoms of bacterial infection. | | There she does have a history of mild asthma, and reports having | | wheezing since onset of illness.Plan:Instructed patient to | | continue use of albuterol inhaler every 4 hours when | | necessary.Use OTC guaifenesin, as well as OTC analgesics for pain | | and fever.Return if any worsening concerns. | + + + + + + | Medical clearance for incarceration | 03/22/20 | | | | 14 | 4 | + + + + + + | Last Assessment & Plan: The patient is cleared for inclusion | | in general population. There is no noted communicable disease. | + + + + + + | Amenorrhea | 03/22/20 | | | | 14 | 4 | + + + + + + | Last Assessment & Plan: Negative test | + + + + + + | Exposure to STD | 03/22/20 | | | | 14 | 4 | + + + + + + | Last Assessment & Plan: María is reporting having had | | recent sexual contact with a partner positive for hep C. She | | also feels that she has had amenorrhea, increased vaginal | | discharge, and pain with urination. She is concerned about | | possible STD.Plan:GC chlamydia urine and UA orderedSpoke with | | patient about returning to see Connie Gaines, her PCP, for | | studies related to possible hepatitis C exposure | + + + + + + | Menstrual abnormality | 02/17/20 | | | | 14 | 4 | + + + + + + | Last Assessment & Plan: PT's LMP was January 02. Missed january | | period. She reports having unprotected sex between jan 16 and jan | | . She took home preg test which she said was "slightly | | positive". Patient describes symptoms including breast | | tenderness, increased vaginal discharge, low abnormal tenderness | | and nausea and vomiting. She feels she could have potentially | | been exposed to STD. Testing and treatment for this was | | discussed. As well as discussing cessation of alcohol and | | cigarettes during . Patient has been on Prozac, but | | discontinued this medication when she felt she was . She | | says that she has been trying to become and would like | | to her brice cerna, who is age 16. Quantitative hCG was less | | than 1= negativePlan:I attempted to discuss control options | | with patient and her mother. Patient is adamantly refusing, | | again, saying that she is trying to become . I did | | recommend patient return to clinic or health department for STD | | testing | + + Immunizations + + + + | Name | Administration Dates | Next Due | + + + + | DTAP, 5 PERTUSSIS | 08/28/2003, 08/05/1999, 1998, | | | ANTIGENS | 1998, 1998 | | + + + + | HEP A, 2 DOSE | 08/28/2003, 03/07/2003 | | | (PED/ADOL) | | | + + + + | HIB (PRP-T), 4 DOSE | 08/05/1999, 1998, 1998, | | | (PED) | 1998 | | + + + + | HPV, QUADRIVALENT, 3 | 03/08/2013 | | | DOSE (ADOL/ADULT) | | | + + + + | Hep B (PED/ADOL) 3 | 06/20/2014, 1998, 1998, | | | DOSE | 1998 | | + + + + | INFLUENZA, | 03/14/2014 | | | UNSPECIFIED | | | | FORMULATION | | | + + + + | IPV, 4 DOSE | 08/28/2003, 08/05/1999, 1998, | | | (PED/ADULT) | 1998 | | + + + + | MENINGOCOCCAL | 09/02/2011 | | | CONJUGATE,MENACTRA | | | | (PED/ADOL/ADULT) | | | + + + + | MMR, 2 DOSE | 08/28/2003, 08/05/1999 | | | (PED/ADULT) | | | + + + + | TDAP, (ADOL/ADULT) | 09/02/2011 | | + + + + | VARICELLA, 2 DOSE | 04/12/2008, 08/05/1999 | | | (VARIVAX) | | | + + + + Family History + + +------+ + | Medical History | Relation | Name | Comments | + + +------+ + | Depression | Maternal | | | | | Aunt | | | + + +------+ + | Fibromyalgia | Maternal | | | | | Aunt | | | + + +------+ + | High blood pressure | Maternal | | | | | Aunt | | | + + +------+ + | High cholesterol | Maternal | | | | | Aunt | | | + + +------+ + | Kidney disease | Maternal | | | | | Aunt | | | + + +------+ + | Sleep apnea | Maternal | | | | | Aunt | | | + + +------+ + | Depression | Maternal | | | | | Aunt | | | + + +------+ + | Fibromyalgia | Maternal | | | | | Aunt | | | + + +------+ + | High cholesterol | Maternal | | | | | Aunt | | | + + +------+ + | Depression | Maternal | | | | | Aunt | | | + + +------+ + | High cholesterol | Maternal | | | | | Aunt | | | + + +------+ + | Cancer | Maternal | | | | | Grandfath | | | | | er | | | + + +------+ + | Depression | Maternal | | | | | Grandfath | | | | | er | | | + + +------+ + | Diabetes | Maternal | | | | | Grandfath | | | | | er | | | + + +------+ + | High cholesterol | Maternal | | | | | Grandfath | | | | | er | | | + + +------+ + | Depression | Maternal | | | | | Grandmoth | | | | | er | | | + + +------+ + | Fibromyalgia | Maternal | | | | | Grandmoth | | | | | er | | | + + +------+ + | High cholesterol | Maternal | | | | | Grandmoth | | | | | er | | | + + +------+ + | Thyroid disease | Maternal | | | | | Grandmoth | | | | | er | | | + + +------+ + | High cholesterol | Maternal | | | | | Uncle | | | + + +------+ + | COPD | Mother | | | + + +------+ + | Depression | Mother | | | + + +------+ + | Diabetes | Mother | | | + + +------+ + | Heart disease | Mother | | | + + +------+ + | High blood pressure | Mother | | | + + +------+ + | High cholesterol | Mother | | | + + +------+ + | Sleep apnea | Mother | | | + + +------+ + + +------+--------+ + | Relation | Name | Status | Comments | + +------+--------+ + | Father | | Alive | | + +------+--------+ + | Maternal Aunt | | | | + +------+--------+ + | Maternal Aunt | | | | + +------+--------+ + | Maternal Aunt | | | | + +------+--------+ + | Maternal Grandfather | | | | + +------+--------+ + | Maternal Grandmother | | | | + +------+--------+ + | Maternal Uncle | | | | + +------+--------+ + | Mother | | Alive | | + +------+--------+ + Social History + + + +--------+ [...] recent travel history available. | + + Last Filed Vital Signs + + + [...] | | + + + + + Plan of Treatment + + + + + | Health Maintenance | Due Date | Last Done | Comments | + + + + + | Vaccine: HPV (2 - | | 03/08/2013 | | | Female 2-dose | 4 | | | | series) | | | | + + + + + | Well Child Check | | 06/01/2014, 06/01/2014 | | | | 5 | | | + + + + + | Cervical Cancer | | | | | Screening (Pap) | 9 | | | + + + + + | Primary Care | | 07/12/2018, 05/10/2018, | | | Outreach (Moderate | 0 | 02/09/2018, Additional history | | | Risk) | | exists | | + + + + + | Vaccine: Influenza | | 03/14/2014 | | | (Season Ended) | 0 | | | + + + + + | Vaccine: | | 09/02/2011, 08/28/2003, | | | Dtap/Tdap/Td (7 - | 2 | 08/05/1999, Additional history | | | Td) | | exists | | + + + + + Results Not on filefrom Last 3 Months Insurance + +--------+ +--------+ +---------+--------+ | Payer | Benefi | Subscriber | Effect | Phone | Address | Type | | | t Plan | ID | obdulia | | | | | | / | | Dates | | | | | | Group | | | | | | + +--------+ +--------+ +---------+--------+ | [place] | MEDICA | [id number] | 06/14/19 | [phone] | | Medica | | | ID OF | | 08-Pre | 2 | | id | | | [place] | | sent | | | | + +--------+ +--------+ +---------+--------+ | [place] | MEDICA | [id number] | 06/14/19 | [phone] | | Medica | | | ID OF | | 08-Pre | 2 | | id | | | [place] | | sent | | | | + +--------+ +--------+ +---------+--------+ | [place] | MEDICA | [id number] | 05/12/ | [phone] | | Medica | | | [place] | | 2016-P | 8 | | id | | | HEALTH | | resent | | | | | | [place] | | | | | | | | [place] | | | | | | | | PLUS | | | | | | + +--------+ +--------+ +---------+--------+ | [place]ICA[place] | MEDICA | [id number] | 10/20/19 | [phone] | | Medica | | | ID | | 18-Pre | 8 | | id | | | [place] | | sent | | | | | | A | | | | | | + +--------+ +--------+ +---------+--------+ + +--------+ +--------+ + + | Guarantor Name | Accoun | Relation to | Date | Phone | Billing Address | | | t Type | Patient | of | | | | | | | | | | + +--------+ +--------+ + + | Norma Alvarez | Person | Self [birth year] | [address] | | | al/Fam | | 1999 | [phone] | [place] [address] | | | mary | | | 6 (Home) | | + +--------+ +--------+ + + | Norma Alvarez | Person | Self | [birth year] | [address] | | | al/Fam | | 1999 | [phone] | [place] [address] | | | mary | | | 6 (Home) | | + +--------+ +--------+ + + | Samantha Giron T | Person | Mother | [birth year] | [address] | | | al/Fam | | 1978 | [phone] | [place] [address] | | | mary | | | 5 (Home) | | + +--------+ +--------+ + + | SAMANTHA GIRON | Person | Mother | [birth year] | | [address] | | | al/Fam | | 1978 | [phone] | [place] [address] | | | mary | | | 6 (Home) | | + +--------+ +--------+ + + | CANDELARIA ALVAREZ | Person | Spouse | [birth year]22[birth year] | [address] | | | al/Fam | | 1996 | [phone] | [place] [address] | | | mary | | | 7 (Home) | | + +--------+ +--------+ + + Advance Directives + + + + + | Type | Date Recorded | Patient | Explanation | | | | Development Manager | | + + + + + | Power of | | | | | Extractor Loader And Unloader | | | | + + + + + | Power of | | | | | Extractor Loader And Unloader | | | | + + + + + | Advance | 10/19/2017 9:46 | | | | Directive | PM | | | + + + + +
--- OUTSIDE RECORDS SUMMARY | ~2019-11-21 | XMS | Encounter Summary ---
Demographics + + + | Address | [address] | | | [place] [address] | + + + | Home Phone | | + + + | Preferred Language | Unknown | + + + | Marital Status | Single | + + + | Cheondoism Affiliation | Unknown | + + + | Race | Unknown | + + + | Ethnic Group | Unknown | + + + Author + + + | Author | [facility] | | | and [place] | + + + | Organization | [facility] | | | and [place]hinavana | + + + | Address | Unknown | + + + | Phone | Unavailable | + + + Support + + + + + | Name | Relationship | Address | Phone | + + + + + | Aaron Giron | [place] [address] | | + + + + + Care Team Providers + +------+ + | Care Gas Welder Apprentice Name | Role | Phone | + [...] | +--------+ + + + + | 04/07/ | Telephone | [facility] | Wendy Jackson, | Follow-up | | 2017 | | MEDICINE [address] | DO [address] | | | | [address] | [place] | | | | | WILL[place] MD | [place] [address] | | | | | [address] | [phone] | | | | | [phone] | | | +--------+ + + + [...]
--- OUTSIDE RECORDS SUMMARY | ~2019-11-21 | XMS | Encounter Summary ---
Demographics + + + | Address | [address] | | | [place] [address] | + + + | Home Phone | | + + + | Preferred Language | Unknown | + + + | Marital Status | Single | + + + | Pentecostalism Affiliation | Unknown | + + + | Race | Unknown | + + + | Ethnic Group | Unknown | + + + Author + + + | Author | [facility] | | | and [place] | + + + | Organization | [facility] | | | and Abhinavana | + + + | Address | Unknown | + + + | Phone | Unavailable | + + + Support + + + + + | Name | Relationship | Address | Phone | + + + + + | Aaron Giron | [place] [address] | | + + + + + Care Team Providers + +------+ + | Care Psychologists Name | Role | Phone | + +------+ + | Catracho Mullen DO | PCP | | + +------+ + Encounter Details +--------+ + + + + | Date | Type | Department | Care Team | Description | +--------+ + + + + | 12/28/ | Orders Only | [facility] | Ravindra Valle | Amenorrhea (Primary | | 2013 | | [facility] | MD Caterina [address] | Dx) | | | | [address] | [place] [address] | | | | | [place], [place] | [phone] | | | | | [address] | | | | | | [phone] | | | +--------+ + + + [...] filedocumented as of this encounter Results HCG, Urine, Qual (12/28/2013 11:05 AM MDT) + + + + + [...] + + + + + | [facility] | [address] [facility] | [place] [address] | [phone] | | MEDICAL CENTER | | | | | LABORATORY | | | | + + + + + documented in this encounter Visit Diagnoses + + | Diagnosis | + + | Amenorrhea - Primary Absence of menstruation | + + documented in this encounter"
--- OUTSIDE RECORDS SUMMARY | ~2019-11-21 | XMS | Clinical Summary ---
Demographics + + + | Address | [address] | | | [place] [address] | + + + | Home Phone [...] | Author | [facility] | | | and [...] | Samantha Giron | [place] [address] | | + + + + + Care Team Providers + +------+ + | Care Logging Shovel Operator Name | Role | Phone | [...] +---------+--------+ | [place]ID [place] | MEDICA | [id number] | 06/14/19 | [phone] | | Medica | | | ID OF | | 08-Pre | 2 | | id | | | [place] | | sent | | | | + +--------+ +--------+ +---------+--------+ | [place] | MEDICA | [id number] | 06/14/19 | [phone] | | Medica | | | ID OF | | 08-Pre | 2 | | id | | | [place] | | sent | | | | + +--------+ +--------+ +---------+--------+ | [place]ID [place] | MEDICA | [id number] | 05/12/ | [phone] | | Medica | | | ID [...] +---------+--------+ | [place] | MEDICA | [id number] | 10/20/19 | [phone] | | Medica | | | ID [...] | | al/Fam | | 1999 | [phone] | [place] [address] | | | mary | | | 6 (Home) | | + +--------+ +--------+ + + | Norma Alvarez | Person | Self | [birth year] | [address] | | | al/Fam | | 1999 | [phone] | [place] [address] | | | mary | | | 6 (Home) | | + +--------+ +--------+ + + | Samantha Giron T | Person | Mother | [birth year] | | [address] | | | al/Fam | | 1978 | [phone] | [place] [address] | | | mary | | | 5 (Home) | | + +--------+ +--------+ + + | SAMANTHA GIRON | Person | Mother | [birth year] | | [address] | | | al/Fam | | 1978 | [phone] | [place] [address] | | | mary | | | 6 (Home) | | + +--------+ +--------+ + + | CANDELARIA ALVAREZ | Person | Spouse | 11/22[birth year] | | [address] | | | al/Fam | | 1996 | [phone] | [place] [address] | | | mary | | | 7 (Home) | | + +--------+ +--------+ + + Advance Directives + + + + + | Type | Date Recorded | Patient | Explanation | | | | Crib Tender | | + + + + + | Power of | | | | | Emergency Dept Tech | | | | + + + + + | Power of | | | | | Emergency Dept Tech | | | | + + + + + | Advance | 10/19/2017 9:46 | | | | Directive | PM | | | + + + + +
--- OUTSIDE RECORDS SUMMARY | ~2019-11-21 | XMS | Encounter Summary ---
Demographics + + + | Address | [address] | | | [place] [address] | + + + | Home Phone | | + + + | Preferred Language | Unknown | + + + | Marital Status | Single | + + + | Congregational Affiliation | Unknown | + + + | Race | Unknown | + + + | Ethnic Group | Unknown | + + + Author + + + | Author | [facility] | | | and [place] | + + + | Organization | [facility] | | | and Abhinavana | + + + | Address | Unknown | + + + | Phone | Unavailable | + + + Support + + + + + | Name | Relationship | Address | Phone | + + + + + | Aaron Giron | [place] [address] | | + + + + + Care Team Providers + +------+ + | Care Wafer Abrading Machine Tender Name | Role | Phone | + [...] + + | 02/16/ | Office | [facility] | James Butt, | (Primary | | 2013 | Visit | [facility] | FUGITIVE INVESTIGATOR [address] | Dx); Menstrual | | | | [address] | Dr Roth, | abnormality | | | | [place], [place] | [place] [address] | | | | | [address] | [phone] | | | | | [phone] | | | +--------+---------+ + + + [...] Which Medications Are Safe? No prescription or nxdp-qpy-lmomrwy drug is safe for everyone all of [...] bring the load nearer. Get a good certified scrum master. Test the weight of the load. Tighten [...] health care provider before taking any medications. [id number] Gab Alaniz, [address] [facility], [place] [address]. All rights reserve d. This information is [...] results of test today as requested by [facility] earth science technical officer. Home test was slightly positive. Test [...] + | [facility] | [address] | [place] [address] | [phone] | | MEDICAL CENTER | | | | | LABORATORY | | | | + + + + + documented in this encounter Visit Diagnoses + + | Diagnosis | + + | - Primary | + + | Menstrual abnormality | + + documented in this encounter
--- OUTSIDE RECORDS SUMMARY | ~2019-11-21 | XMS | Encounter Summary ---
Demographics + + + | Address | [address] | | | [place] [address] | + + + | Home Phone | | + + + | Preferred Language | Unknown | + + + | Marital Status | Single | + + + | Judaism Affiliation | Unknown | + + + | Race | Unknown | + + + | Ethnic Group | Unknown | + + + Author + + + | Author | [facility] | | | and [place] | + + + | Organization | [facility] | | | and Abhinavana | + + + | Address | Unknown | + + + | Phone | Unavailable | + + + Support + + + + + | Name | Relationship | Address | Phone | + + + + + | Aaron Giron | [place] [address] | | + + + + + Care Team Providers + +------+ + | Care Superintendent Electric Power Name | Role | Phone | + +------+ + | Catracho Mullen DO | PCP | | + +------+ + Encounter Details +--------+ + + + + | Date | Type | Department | Care Team | Description | +--------+ + + + + | 05/16/ | Hospital | [facility] | Junie Bowie, | Acanthosis | | 2013 | Encounter | [facility] | Leonela Diggs PA-C [address] | nigricans; | | | | LABORATORY [address] | [address] [place], [place] | Unprotected sexual | | | | [place] | [address] | intercourse | | | | [address] | | | | | | [phone] | | | +--------+ + + + [...] puffs into | 1 | 2 | // | | | HFA) 90 mcg/puff | [...] + + + +---------+ + + | traMADol (ULTRAM) | Take 1 tablet by | 20 | 0 | 04/30/20 | | | 50 mg tablet | mouth every 6 hours | tablet | | 14 | 4 | | | as needed for Pain. | | | | | + + + +---------+ + + documented as of this encounter Progress Notes Nancy Golsdmith CMA - 05/22/2014 1:53 PM [facility] Quick Note: Mother - Aaron notified that per Leonela Bowie patient will need her 4th Hep B immuniza tion. Also positive for hsv1 (cold sores). Mother asks if she needs to be on a rx for this a nd I asked Aaron to confirm with Norma how often she is having outbreaks. She will call b ack to let us know and will ask Leonela if pt will need treatment for that. Leonela Lozada PA - 05/18/2014 3:34 PM [facility] Quick Note: Or with just the Hepatitis A vaccine. Tierney Lozada PA - 05/18/2014 3:33 PM MST Quick Note: We need to see if Norma has had the Twinrix vaccine but I don't think she has. If not we need to add on Hepatitis A IGG and IGM documented i n this encounter Plan of Treatment Not on filedocumented as of this encounter Procedures + +--------+ + + + | Procedure Name | Priori | Date/Time | Associated Diagnosis | Comments | | | ty | | | | + +--------+ + + + | C. TRACHOMATIS AND | Routin | 05/16/2014 | Unprotected sexual | Results for this | | N. GONORRHOEAE, NAAT | e | 11:19 AM | intercourse | procedure are in the | | (APTIMA) | | MST | | results section. | + +--------+ + + + | HERPES SIMPLEX VIRUS | Routin | 05/16/2014 | Unprotected sexual | Results for this | | 1 AND 2 AB, IGG | e | 11:10 AM | intercourse | procedure are in the | | | | MST | | results section. | + +--------+ + + + | HEPATITIS PANEL, | Routin | 05/16/2014 | Unprotected sexual | Results for this | | ACUTE | e | 11:10 AM | intercourse | procedure are in the | | | | MST | | results section. | + +--------+ + + + | RAPID PLASMA REAGIN, | Routin | 05/16/2014 | Unprotected sexual | Results for this | | QUAL | e | 11:10 AM | intercourse | procedure are in the | | | | MST | | results section. | + +--------+ + + + | HIV 1 AND 2 AB, | Routin | 05/16/2014 | Unprotected sexual | Results for this | | REFLEX | e | 11:10 AM | intercourse | procedure are in the | | | | MST | | results section. | + +--------+ + + + | CBC WITH | Routin | 05/16/2014 | Acanthosis | Results for this | | DIFFERENTIAL | e | 11:10 AM | nigricans | procedure are in the | | | | MST | | results section. | + +--------+ + + + | HEMOGLOBIN A1C | Routin | 05/16/2014 | Acanthosis | Results for this | | | e | 11:10 AM | nigricans | procedure are in the | | | | MST | | results section. | + +--------+ + + + | COMPREHENSIVE | Routin | 05/16/2014 | Acanthosis | Results for this | | METABOLIC PANEL | e | 11:10 AM | nigricans | procedure are in the | | | | MST | | results section. | + +--------+ + + + documented in this encounter Results C. trachomatis and N. gonorrhoeae, NAAT (APTIMA) (05/16/2014 11:19 AM MST) + + + + + [...] | | | | | | - [facility] | | + + + + + + | Result | SEE NOTEComment: This | | REFERENCE | | | | test was performed using | | LAB [facility] | | | | the APTIMA COMBO2 | | DIAGNOSTICS | | | | Assay([employer] | | - [place] | | | | The analytical | | | | | | performance | | | | | | characteristics of this | | | | | | assay, when used to test | | | | | | SurePath specimens | | | | | | havebeen determined by | | | | | | [facility]. | | | | + + + + + + + + | Specimen | + + | Specimen from | | genital system | | (specimen) - Urine, | | Clean Catch | + + + + + | Narrative | Performed At | + + + | Performing Organization Information: Site ID: [id number] | REFERENCE LAB | | Name: [facility] [place] [address] [facility] Address: [address] | [facility] | | [address] [place] [address] Director: RAYSHAWN Sullivan | DIAGNOSTICS - | | MD MATT | [place] | + + + + + + + + | Performing | Address | City/State/Zipcode | Phone Number | | Organization | | | | + + + + + | REFERENCE LAB | [address] | [place], [place] | [phone] | | [facility] - | [address] | [address] | | | [place] | | | | + + + [...] | | | | | | - [place] | | | | ----- | | [...] Name: | REFERENCE LAB | | [facility] Address: [address] | [facility] | | [place] [address] Director: JOSHUA HIGGINS MD.,PH.D | DIAGNOSTICS - | | | [place] | + + + + + + + + | Performing | Address | City/State/Zipcode | Phone Number | | Organization | | | | + + + + + | REFERENCE LAB | [address] | [place], [place] | [phone] | | [facility] - | [address] | [address] | | | [place] | | | | + + + + + Rapid Jenny Gonzalez (05/16/2014 11:10 AM MST) + + + [...] Name: | REFERENCE LAB | | [facility] Address: [address] | [facility] | | [address] [place] [address] Director: RAYSHAWN GUTIERREZ MD | DIAGNOSTICS - | | | [place] | + + + + + + + + | Performing | Address | City/State/Zipcode | Phone Number | | Organization | | | | + + + + + | REFERENCE LAB | [address] | [place], [place] | [phone] | | [facility] - | [address] | [address] | | | [place] | | | | + + + [...] | | | | | | Qualitative ([id number]) | | | | | | testing [...] Name: | REFERENCE LAB | | [facility] Address: [address] | [facility] | | [address] [place] [address] Director: RAYSHAWN GUTIERREZ MD | DIAGNOSTICS - | | | [place] | + + + + + + + + | Performing | Address | City/State/Zipcode | Phone Number | | Organization | | | | + + + + + | REFERENCE LAB | [address] | [place], [place] | [phone] | | [facility] - | [address] | [address] | | | [place] | | | [...] Name: | REFERENCE LAB | | [facility] Address: [address] | [facility] | | [address] [place] [address] Director: RAYSHAWN GUTIERREZ MD | DIAGNOSTICS - | | | [place] | + + + + + + + + | Performing | Address | City/State/Zipcode | Phone Number | | Organization | | | | + + + + + | REFERENCE LAB | [address] | [place], [place] | [phone] | | [facility] - | [address] | [address] | | | [place] | | | | + + + [...] + + + + + | [facility] | [address] | [place] [address] | [phone] | | MEDICAL CENTER | | | [...] | mL/min/1.73m2 | [facility] | | | [facility] | | | MEDICAL | | | [...] + | BUN/Creatin | 16.7 | | [facility] | | | ine Ratio | | | NITO | | | | | | MEDICAL [...] YEARS OLD. | [facility] | | | [facility] | | | [facility]ICAL [facility] | | | LABORATORY | + + + + + + + + | Performing | Address | City/State/Zipcode | Phone Number | | Organization | | | | + + + + + | [facility] | [address] | [place] [address] | [phone] | | MEDICAL CENTER | | | [...] + + + + | [facility] | [address] [facility] | [place] [address] | [phone] | | MEDICAL CENTER | | | | | LABORATORY | | | | + + + + + documented in this encounter Visit Diagnoses + + | Diagnosis | + + | Acanthosis nigricans Acquired acanthosis nigricans | + + | Unprotected sexual intercourse Problems related to high-risk sexual behavior | + + documented in this encounter"
--- OUTSIDE RECORDS SUMMARY | ~2019-11-21 | XMS | Encounter Summary ---
Demographics + + + | Address | [address] | | | [place] [address] | + + + | Home Phone | | + + + | Preferred Language | Unknown | + + + | Marital Status | Single | + + + | Faith Affiliation | Unknown | + + + | Race | Unknown | + + + | Ethnic Group | Unknown | + + + Author + + + | Author | [facility] | | | and [place] | [...] + + + | Aaron Giron | [place] [address] | | + + + + + Care Team Providers + +------+ + | Care Die Maker Stamping Name | Role | Phone | + +------+ + | Catracho Mullen DO | PCP | | + +------+ + Reason for Visit + + + | Reason | Comments | + + + | Shoulder Pain | | + + + Encounter Details +--------+ + + + + | Date | Type | Department | Care Team | Description | +--------+ + + + + | 04/30/ | Emergency | [facility] | Dalia Henley, | Contusion | | 2013 | | MEDICAL CENTER | MD [address] | shoulder/arm, right, | | | | [facility] [address] | [place] [address] | initial encounter | | | | [address] [place], | [phone] | (Primary Dx) | | | | [place] [address] | | | | | | [phone] | | | +--------+ + + + [...] + + + | Blood Pressure | 128/88 | 04/30/2014 6:38 PM | | | | | MST | | + + + + + | Pulse | 98 | 04/30/2014 6:38 PM | | | | | MST | | + + + + + | Temperature | 37 C (98.6 F) | 04/30/2014 6:38 PM | | | | | MST | | + + + + + | Respiratory Rate | 20 | 04/30/2014 6:38 PM | | | | | MST | | + + + + + | Oxygen Saturation | 98% | 04/30/2014 6:38 PM | | | | | MST | | + + + + + | Inhaled Oxygen | - | - | | | Concentration | | | | + + + + + | Weight | 81.6 kg (180 lb) | 04/30/2014 6:12 PM | | | | | MST | | + + + + + | Height | 170.2 cm (5' 7.01") | 04/30/2014 6:12 PM | | | | | MST | | + + + + + | Body Mass Index | 28.19 | 04/30/2014 6:12 PM | | | | | PST | | + + + + + documented in this encounter Discharge Instructions Instructions Dalia Henley MD - 04/30/2014Use the sling to support your arm and help wit h the pain. It is for your comfort wear it if you need to. Ibuprofen 600 mg every 6 hours if needed for pain. You can try the tramadol if needed for pain in addition to the ibuprofen. You can expect that the shoulder will hurt for a few days and then gradually get better. I f you are having any new problems or you aren't improving after a week, go see the keyanna small at the clinic or return here. documented in this encounter Medications at Time [...] + +--------+ + + + | XR SHOULDER RIGHT 2 | STAT | 04/30/2014 | | Results for this | | + VW | | 6:26 PM | | procedure are in the | | | | MST | | results section. | + +--------+ + + + documented in this encounter Results XR Shoulder Right 2 + Vw (04/30/2014 6:26 PM MST) + + | Specimen | + + | | + + + + + | Narrative | Performed At | + + + | EXAMINATION: XR SHOULDER RIGHT 2 + VW INDICATION: fall on | [facility] | | shoulder Comparison: None. Technique: Three views of the | LAB | | right shoulder. Findings: The right shoulder demonstrates no | | | evidence of acute fracture or dislocation. The glenohumeral and | | | acromioclavicular joints are normal in appearance. The clavicle and | | | scapula appear intact. The imaged ribs and lung parenchyma are | | | unremarkable. Date of Service: | | | This report electronically signed | | | Neel | | | Joseph Puentes MD | | | 04/30/2014 Dictated: 04/30/2014 | | + + + + + | Procedure Note | + + | Mike Kaye Results In - 04/30/2014 6:50 PM MST EXAMINATION: XR SHOULDER RIGHT 2 + VW | | | | INDICATION: fall on shoulder | | | | Comparison: None. | | | | Technique: Three views of the right shoulder. | | | | Findings: | | | | The right shoulder demonstrates no evidence of acute fracture or dislocation. | | The glenohumeral and acromioclavicular joints are normal in appearance. The | | clavicle and scapula appear intact. The imaged ribs and lung parenchyma are | | unremarkable. | | | | Date of Service: | | | | | | This report electronically signed | | Neel Puentes MD | | 04/30/2014 | | | | Dictated: 04/30/2014 | + + + +---------+ + + | Performing | Address | City/State/Zipcode | Phone Number | | Organization | | | | + +---------+ + + | [facility] | | | [phone] | + +---------+ + + | [facility] | | | [phone] | + +---------+ + + documented in this encounter Visit Diagnoses + + | Diagnosis | + + | Contusion shoulder/arm, right, initial encounter - Primary | + + documented in this encounter Administered Medications + + + +-------+------+------+ | Medication Order | MAR | Action | Dose | Rate | Site | | | Action | Date | | | | + + + +-------+------+------+ | tramadol (ULTRAM) tablet (ER | Dispense | 04/30/20 | 50 mg | | | | Prepack) 50 mg 50 mg, Oral, | to Home | 14 6:32 | | | | | EVERY 6 HOURS PRN, Moderate Pain, | | PM MST | | | | | Starting 04/30/14 at 1828, | | | | | | | Dispense for home use., | | | | | | + + + +-------+------+------+ +---+---+ | | | +---+---+ documented in this encounter
--- OUTSIDE RECORDS SUMMARY | ~2019-11-21 | XMS | Encounter Summary ---
Demographics + + + | Address | [address] | | | [place] [address] | + + + | Home Phone | | + + + | Preferred Language | Unknown | + + + | Marital Status | Single | + + + | Samaritan Affiliation | Unknown | + + + | Race | Unknown | + + + | Ethnic Group | Unknown | + + + Author + + + | Author | [facility] | | | and [place] | + + + | Organization | [facility] | | | and [place] | + + + | Address | Unknown | + + + | Phone | Unavailable | + + + Support + + + + + | Name | Relationship | Address | Phone | + + + + + | Aaron Giron | [place] [address] | | + + + + + Care Team Providers + +------+ + | Care Hoisting Laborer Name | Role | Phone | + +------+ + | Catracho Mullen DO | PCP | | + +------+ + Encounter Details +--------+ + + + + | Date | Type | Department | Care Team | Description | +--------+ + + + + | 06/20/ | Telephone | [facility] | Connie Gaines, | | | 2014 | | [facility]ICAL [facility] | [facility] [address] [facility] | | | | | LABORATORY [address] | [place] [address] | | | | | [address] [place] | [phone] | | | | | [address] | | | | | | [phone] | | | +--------+ + + + [...]
--- OUTSIDE RECORDS SUMMARY | ~2019-11-21 | XMS | Encounter Summary ---
Demographics + + + | Address | [address] | | | [place] [address] | + + + | Home Phone | | + + + | Preferred Language | Unknown | + + + | Marital Status | Single | + + + | Confucianism Affiliation | Unknown | + + + | Race | Unknown | + + + | Ethnic Group | Unknown | + + + Author + + + | Author | [facility] | | | and [place] | + + + | Organization | [facility] | | | and [place]hinavana | + + + | Address | Unknown | + + + | Phone | Unavailable | + + + Support + + + + + | Name | Relationship | Address | Phone | + + + + + | Aaron Giron | [place] [address] | | + + + + + Care Team Providers + +------+ + | Care Town Administrator Name | Role | Phone | + [...] W | Dx) | | | | [facility] | [facility] | | | | | [address] | [place] [address] | | | | | [address] | [phone] | | | | | [phone] | | | +--------+---------+ + + + [...]
--- OUTSIDE RECORDS SUMMARY | ~2019-11-21 | XMS | Encounter Summary ---
Demographics + + + | Address | [address] | | | [place] [address] | + + + | Home Phone | | + + + | Preferred Language | Unknown | + + + | Marital Status | Single | + + + | Gnosticist Affiliation | Unknown | + + + | Race | Unknown | + + + | Ethnic Group | Unknown | + + + Author + + + | Author | [facility] | | | and [place] | + + + | Organization | [facility] | | | and Abhinavana | + + + | Address | Unknown | + + + | Phone | Unavailable | + + + Support + + + + + | Name | Relationship | Address | Phone | + + + + + | Aaron Giron | [place] [address] | | + + + + + Care Team Providers + +------+ + | Care Motor Equipment Captain Name | Role | Phone | + [...] | | | | | | | [address] | | | | | | | Phone: | | | | | | | [phone] | | | | | | | Fax: | | | | | | | [phone] | | +--------+ + + + + [...] 02/09/ | Office | [facility] | Patrice Hu | Stiffness of left | | 2018 | Visit | SERVICES [address] | MD [address] | hand joint (Primary | | | | [facility] | [facility] | Dx) | | | | [place] | [place] | | | | | [address] | [id number] | | | | | [phone] | | | +--------+---------+ + + + [...] 02/09/2018 [facility] Rakesh Hu M.D. [address] [place] [address] Chief Complaint / History of Present Illness [...] of this chart have been created with [employer] voice recognition software. Occasiona l wrong word or sound-alike substitutions may have occurred due to the inherent limita tions of voice recognition software. Please read the chart carefully and recognize, using [employer], where these substitutions have occurred. documented in [...]
--- OUTSIDE RECORDS SUMMARY | ~2019-11-21 | XMS | Encounter Summary ---
Demographics + + + | Address | [address] | | | [place] [address] | + + + | Home Phone | | + + + | Preferred Language | Unknown | + + + | Marital Status | Single | + + + | Mormon Affiliation | Unknown | + + + | Race | Unknown | + + + | Ethnic Group | Unknown | + + + Author + + + | Author | [facility] | | | and [place] | + + + | Organization | [facility] | | | and Abhinavana | + + + | Address | Unknown | + + + | Phone | Unavailable | + + + Support + + + + + | Name | Relationship | Address | Phone | + + + + + | Aaron Giron | [place] [address] | | + + + + + Care Team Providers + +------+ + | Care Sales Applications Engineer Name | Role | Phone | [...] RICH | | | | | [place] | [place] [address] | | | | | [address] | [phone] | | | | | [phone] | | | +--------+ + + + [...]
--- OUTSIDE RECORDS SUMMARY | ~2019-11-21 | XMS | Encounter Summary ---
Demographics + + + | Address | [address] | | | [place] [address] | + + + | Home Phone [...] + + + | Author | [facility] | | | and [place] | + + + | Organization | [facility] | | | and Abhinavana | + + + | Address | Unknown | + + + | Phone | Unavailable | + + + Support + + + + + | Name | Relationship | Address | Phone | + + + + + | Aaron Giron | [place] [address] | | + + + + + Care Team Providers + +------+ + | Care Field Talent Qualification Specialist Name | Role | Phone | + +------+ + PCP | Unavailable | + +------+ + Encounter Details +--------+ + + + + | Date | Type | Department | Care Team | Description | +--------+ + + + + | 07/23/ | Hospital | [facility] | Naun Mullen | | | 1999 | Encounter | [facility] | MD [address] | | | | | GENERIC IP CONV DEPT | [place], [place] | | | | | [address] [facility] | [id number] | | | | | [place], [place] | | | | | | [address] | | | | | | [phone] | | | +--------+ + + + [...]
--- OUTSIDE RECORDS SUMMARY | ~2019-11-21 | XMS | Encounter Summary ---
Demographics + + + | Address | [address] | | | [place] [address] | + + + | Home Phone [...] + + + | Author | [facility] | | | and [place] | + + + | Organization | [facility] | | | and Abhinavana | + + + | Address | Unknown | + + + | Phone | Unavailable | + + + Support + + + + + | Name | Relationship | Address | Phone | + + + + + | Aaron Giron | [place] [address] | | + + + + + Care Team Providers + +------+ + | Care Sales Closer Name | Role | Phone | + [...] [place] | | | | | | [address] | | | | | | [phone] | | | +--------+ + + + [...]
--- OUTSIDE RECORDS SUMMARY | ~2019-11-21 | XMS | Encounter Summary ---
Demographics + + + | Address | [address] | | | [place] [address] | + + + | Home Phone | | + + + | Preferred Language | Unknown | + + + | Marital Status | Single | + + + | Mandaen Affiliation | Unknown | + + + | Race | Unknown | + + + | Ethnic Group | Unknown | + + + Author + + + | Author | [facility] [...] | Aaron Giron | [place] [address] | | + + + + + Care Team Providers + +------+ + | Care Freight Flow Sales Leader Name | Role | Phone | + +------+ + PCP | Unavailable | + +------+ + Encounter Details +--------+ + + + + | Date | Type | Department | Care Team | Description | +--------+ + + + + | 07/23/ | Hospital | [facility] | Naun Mullen | | | 1999 | Encounter | [facility] | MD [address] | | | | | GENERIC IP CONV DEPT | [place], [place] | | | | | [address] [facility] | [id number] | | | | | [place], [place] | | | | | | [address] | | | | | | [phone] | | | +--------+ + + + [...]
--- OUTSIDE RECORDS SUMMARY | ~2019-11-21 | XMS | Encounter Summary ---
Demographics + + + | Address | [address] | | | [place] [address] | + + + | Home Phone | | + + + | Preferred Language | Unknown | + + + | Marital Status | Single | + + + | Synagogue Affiliation | Unknown | + + + | Race | Unknown | + + + | Ethnic Group | Unknown | + + + Author + + + | Author | [facility] | | | and [place] | + + + | Organization | [facility] | | | and Abhinavana | + + + | Address | Unknown | + + + | Phone | Unavailable | + + + Support + + + + + | Name | Relationship | Address | Phone | + + + + + | Aaron Giron | [place] [address] | | + + + + + Care Team Providers + +------+ + | Care Hand Router Operator Name | Role | Phone | [...] + + | 12/06/ | Hospital | [facility] | Dewayne Ozuna | | | 2015 | Encounter | [facility] [place] | [address] | | | | | INTRA OP [address] | [place], [place] | | | | | [place] | [id number] | | | | | [address] | | | | | | [phone] | | | +--------+ + + + [...] | [address] | [place] [address] | [phone] | | MEDICAL CENTER | | | [...]
--- OUTSIDE RECORDS SUMMARY | ~2019-11-21 | XMS | Encounter Summary ---
Demographics + + + | Address | [address] | | | [place] [address] | + + + | Home Phone | | + + + | Preferred Language | Unknown | + + + | Marital Status | Single | + + + | Roman Catholic Affiliation | Unknown | + + + | Race | Unknown | + + + | Ethnic Group | Unknown | + + + Author + + + | Author | [facility] | | | and [place] | + + + | Organization | [facility] | | | and Abhinavana | + + + | Address | Unknown | + + + | Phone | Unavailable | + + + Support + + + + + | Name | Relationship | Address | Phone | + + + + + | Aaron Giron | [place] [address] | | + + + + + Care Team Providers + +------+ + | Care Marine Insurance Claim Examiner Name | Role | Phone | + [...] | +--------+ + + + + | 05/11/ | Telephone | [facility] | Wendy Jackson, | Follow-up | | 2016 | | MEDICINE [address] | DO [address] | | | | [address] | [place] | | | | | [place], [place] | [place] [address] | | | | | [address] | [phone] | | | | | [phone] | | | +--------+ + + + [...] of this encounter Plan of Treatment + +------+--------+ + + | Name | Type | Priori | Associated Diagnoses | Order Schedule | | | | ty | | | + +------+--------+ + + | HCG, Serum, Quant | Lab | Routin | Amenorrhea | 1 Occurrences | | | | e | | starting 05/11/2017 | | | | | | until 05/11/2018 | + +------+--------+ + + documented as of this encounter Visit Diagnoses + + | Diagnosis | + + | Amenorrhea - Primary Absence of menstruation | + + documented in this encounter"
--- OUTSIDE RECORDS SUMMARY | ~2019-11-21 | XMS | Encounter Summary ---
Demographics + + + | Address | [address] | | | [place] [address] | + + + | Home Phone [...] + | Author | [facility] | | | and [place] | + + + | Organization | [facility] | | | and Abhinavana | + + + | Address | Unknown | + + + | Phone | Unavailable | + + + Support + + + + + | Name | Relationship | Address | Phone | + + + + + | Aaron Giron | [place] [address] | | + + + + + Care Team Providers + +------+ + | Care Piece Cutter Name | Role | Phone | + [...] RICH | | | | | [place] | [place] [address] | | | | | [address] | [phone] | | | | | [phone] | | | +--------+ + + + [...]
--- OUTSIDE RECORDS SUMMARY | ~2019-11-21 | XMS | Encounter Summary ---
Demographics + + + | Address | [address] | | | [place] [address] | + + + | Home Phone | | + + + | Preferred Language | Unknown | + + + | Marital Status | Single | + + + | Sikhism Affiliation | Unknown | + + + | Race | Unknown | + + + | Ethnic Group | Unknown | + + + Author + + + | Author | [facility] | | | and [place] | + + + | Organization | [facility] | | | and Abhinavana | + + + | Address | Unknown | + + + | Phone | Unavailable | + + + Support + + + + + | Name | Relationship | Address | Phone | + + + + + | Aaron Giron | [place] [address] | | + + + + + Care Team Providers + +------+ + | Care Supervisor Volunteer Services Name | Role | Phone | + [...] Description | +--------+--------+ + + + | 07/02/ | Refill | [facility] | Charito Anderson | Medication Refill | | 2018 | | MEDICINE [address] | [place] | | | | | [place] | | | | | | [place], [place] | | | | | | [address] | | | | | | [phone] | | | +--------+--------+ + + + [...]
--- OUTSIDE RECORDS SUMMARY | ~2019-11-21 | XMS | Encounter Summary ---
Demographics + + + | Address | [address] | | | [place] [address] | + + + | Home Phone | | + + + | Preferred Language | Unknown | + + + | Marital Status | Single | + + + | Scientology Affiliation | Unknown | + + + | Race | Unknown | + + + | Ethnic Group | Unknown | + + + Author + + + | Author | [facility] | | | and [place] | + + + | Organization | [facility] | | | and Abhinavana | + + + | Address | Unknown | + + + | Phone | Unavailable | + + + Support + + + + + | Name | Relationship | Address | Phone | + + + + + | Aaron Giron | [place] [address] | | + + + + + Care Team Providers + +------+ + | Care Acid Conditioning Worker Name | Role | Phone | + +------+ + | Catracho Mullen DO | PCP | | + +------+ + Reason for Visit + + + | Reason | Comments | + + + | Medication | Albuterol | | Management | | + + + Encounter Details +--------+ + + + + | Date | Type | Department | Care Team | Description | +--------+ + + + + | 04/03/ | Telephone | [facility] | James Butt, | Medication | | 2013 | | [facility] | [facility] [address] [facility] | Management | | | | [address] [facility] | Dr Roth, | (Albuterol) | | | | [place], [place] | [place] [address] | | | | | [address] | [phone] | | | | | [phone] | | | +--------+ + + + [...]
--- OUTSIDE RECORDS SUMMARY | ~2019-11-21 | XMS | Encounter Summary ---
Demographics + + + | Address | [address] | | | [place] [address] | + + + | Home Phone | | + + + | Preferred Language | Unknown | + + + | Marital Status | Single | + + + | Sikh Affiliation | Unknown | + + + | Race | Unknown | + + + | Ethnic Group | Unknown | + + + Author + + + | Author | [facility] | | | and [place] [...] | Aaron Giron | [place] [address] | | + + + + + Care Team Providers + +------+ + | Care Morning News Producer Name | Role | Phone | + [...] | | | | | | [place], [place] | | | | | | [address] | | | | | | [phone] | | | +--------+--------+ + + + [...]
--- OUTSIDE RECORDS SUMMARY | ~2019-11-21 | XMS | Encounter Summary ---
Demographics + + + | Address | [address] | | | [place] [address] | + + + | Home Phone | | + + + | Preferred Language | Unknown | + + + | Marital Status | Single | + + + | Taoist Affiliation | Unknown | + + + | Race | Unknown | + + + | Ethnic Group | Unknown | + + + Author + + + | Author | [facility] | | | and [place] [...] | Aaron Giron | [place] [address] | | + + + + + Care Team Providers + +------+ + | Care Steam Hoist Operator Name | Role | Phone | + +------+ + | Thea Hernandez | PCP | | + +------+ + Reason for Visit +--------+ + | Reason | Comments | +--------+ + | Other | | +--------+ + Encounter Details +--------+---------+ + + + | Date | Type | Department | Care Team | Description | +--------+---------+ + + + | 05/10/ | Office | [facility] | Wendy Jackson, | Infertility | | 2018 | Visit | CLIN[address] | [address] | associated with | | | | [place], [place] | [address] | anovulation (Primary | | | | [address] | [place] [address] | Dx) | | | | [phone] | [phone] | | | | | | | [...] + | Blood Pressure | 124/80 | 05/10/2018 2:18 PM | | | | | MST | | + + + + + | Pulse | 104 | 05/10/2018 2:18 PM | | | | | MST | | + + + + + | Temperature | 36.4 C (97.5 F) | 05/10/2018 2:18 PM | | | | | MST | | + + + + + | Respiratory Rate | 16 | 05/10/2018 2:18 PM | | | | | MST | | + + + + + | Oxygen Saturation | 95% | 05/10/2018 2:18 PM | | | | | MST | | + + + + + | Inhaled Oxygen | - | - | | | Concentration | | | | + + + + + | Weight | 134 kg (295 lb 6.4 | 05/10/2018 2:18 PM | | | | oz) | MST | | + + + + + | Height | 170.2 cm (5' 7") | 05/10/2018 2:18 PM | | | | | MST | | + + + + + | Body Mass Index | 46.27 | 05/10/2018 2:18 PM | | | | | PST | | + + + + + documented in this encounter Progress Notes Wendy Jackson DO - 05/10/2018 2:20 PM THANGNorma is here to follow up on fertility is sues. She was last seen earlier this year, was having normal monthly menses but not ovulati ng so she was started on letrozole 5 mg which she took for about 3-4x. Pt just started her menses today. Discussed we will start letrozole this cycle with metformin. If she doesn't get will proceed with HSG and semen analysis. Wendy Jackson documented in this encounter Plan of Treatment Not on filedocumented as of this encounter Visit Diagnoses + + | Diagnosis | + + | Infertility associated with anovulation - Primary Female infertility associated with | | anovulation | + + documented in this encounter
--- OUTSIDE RECORDS SUMMARY | ~2019-11-21 | XMS | Encounter Summary ---
Demographics + + + | Address | [address] | | | [place] [address] | + + + | Home Phone | | + + + | Preferred Language | Unknown | + + + | Marital Status | Single | + + + | Confucianist Affiliation | Unknown | + + + | Race | Unknown | + + + | Ethnic Group | Unknown | + + + Author + + + | Author | [facility] | | | and [place] | + + + | Organization | [facility] | | | and Abhinavana | + + + | Address | Unknown | + + + | Phone | Unavailable | + + + Support + + + + + | Name | Relationship | Address | Phone | + + + + + | Aaron Giron | [place] [address] | | + + + + + Care Team Providers + +------+ + | Care Reservation Clerk Name | Role | Phone | + +------+ + | Catracho Mullen DO | PCP | | + +------+ + Encounter Details +--------+ + + + + | Date | Type | Department | Care Team | Description | +--------+ + + + + | 04/03/ | Hospital | [facility] | James Butt, | Dysuria; URI (upper | | 2013 | Encounter | [facility] | AUTOMATIC OVEN OPERATOR [address] | respiratory | | | | LABORATORY [address] | [address], | infection) | | | | [place], [place] | [place] [address] | | | | | [address] | [phone] | | | | | [phone] | | | +--------+ + + + [...] [facility] | [address] [facility] | [place] [address] | [phone] | | MEDICAL CENTER | | | [...] | | DIAGNOSTICS | | | | Assay([employer] | | - [place] | | [...] REFERENCE LAB | | Name: [facility] [address] Address: [address] | [facility] | | [address] [place] [address] Director: RAYSHAWN Sullivan | DIAGNOSTICS - | | MD MATT | [place] | + + + + + + + + | Performing | Address | City/State/Zipcode | Phone Number | | Organization | | | | + + + + + | REFERENCE LAB | [address] | [place], [place] | [phone] | | [facility] - | [address] | [address] | | | [place] | | | [...] - 1.030 | [facility] | | | [place], | | | MEMORIAL | | | [...] [address] | [place] [address] | [phone] | | MEDICAL CENTER | | | [...]
--- OUTSIDE RECORDS SUMMARY | ~2019-11-21 | XMS | Encounter Summary ---
Demographics + + + | Address | [address] | | | [place] [address] | + + + | Home Phone | | + + + | Preferred Language | Unknown | + + + | Marital Status | Single | + + + | Yazdanism Affiliation | Unknown | + + + | Race | Unknown | + + + | Ethnic Group | Unknown | + + + Author + + + | Author | [facility] | | | and [place]wick [...] | Aaron Giron | [place] [address] | | + + + + + Care Team Providers + +------+ + | Care Mathematician Research Name | Role | Phone | + +------+ + | Catracho Mullen DO | PCP | | + +------+ + Encounter Details +--------+ + + + + | Date | Type | Department | Care Team | Description | +--------+ + + + + | 12/28/ | Telephone | [facility] | Ravindra Valle | | | 2013 | | [facility] | MD Caterina [address] | | | | | [address] [facility] | [place] [address] | | | | | [place] | [phone] | | | | | [address] | | | | | | [phone] | | | +--------+ + + + [...]
--- OUTSIDE RECORDS SUMMARY | ~2019-11-21 | XMS | Encounter Summary ---
Demographics + + + | Address | [address] | | | [place] [address] | + + + | Home Phone | | + + + | Preferred Language | Unknown | + + + | Marital Status | Single | + + + | Buddhist Affiliation | Unknown | + + + | Race | Unknown | + + + | Ethnic Group | Unknown | + + + Author + + + | Author | [facility] | | | and [place] | + + + | Organization | [facility] | | | and Abhinavana | + + + | Address | Unknown | + + + | Phone | Unavailable | + + + Support + + + + + | Name | Relationship | Address | Phone | + + + + + | Aaron Giron | [place] [address] | | + + + + + Care Team Providers + +------+ + | Care Eligibility Manager Name | Role | Phone | + +------+ + | Catracho Mullen DO | PCP | | + +------+ + Encounter Details +--------+ + + + + | Date | Type | Department | Care Team | Description | +--------+ + + + + | 05/16/ | Hospital | [facility] | Junie Bowie, | Acanthosis | | 2013 | Encounter | [facility] [place] | Leonela Diggs PA-C [address] | nigricans; | | | | LABORATORY [address] | [place], [place] | Unprotected sexual | | | | [place], [place] | [address] | intercourse | | | | [address] | | | | | | [phone] | | | +--------+ + + + [...] as of this encounter Progress Notes Nancy Goldsmith CMA - 05/22/2014 1:53 PM [facility] Quick Note: Mother - Aaron notified that [...] by | | | | | | [facility]. | | | | + + [...] REFERENCE LAB | | Name: [facility] [place] [address] [facility] Address: [address] | [facility] | | [address] [place] [address] Director: RAYSHAWN Sullivan | DIAGNOSTICS - | | MD MATT | [place] | + + + + + + + + | Performing | Address | City/State/Zipcode | Phone Number | | Organization | | | | + + + + + | REFERENCE LAB | [address] | [place], [place] | [phone] | | [facility] - | [address] | [address] | | | [place] | | | | + + + [...] | | | | | | - [place] | | | | ----- | | [...] Name: | REFERENCE LAB | | [facility] Address: [address] [facility] | [facility] | | [place] [address] Director: JOSHUA HIGGINS MD.,PH.D | DIAGNOSTICS - | | | [place] | + + + + + + + + | Performing | Address | City/State/Zipcode | Phone Number | | Organization | | | | + + + + + | REFERENCE LAB | [address] | [place], [place] | [phone] | | [facility] - | [address] | [address] | | | [place] | | | | + + + [...] Name: | REFERENCE LAB | | [facility] [facility] Address: [address] | [facility] | | [address] [place] [address] Director: RAYSHAWN GUTIERREZ MD | DIAGNOSTICS - | | | [place] | + + + + + + + + | Performing | Address | City/State/Zipcode | Phone Number | | Organization | | | | + + + + + | REFERENCE LAB | [address] | [place], [place] | [phone] | | [facility] - | [address] | [address] | | | [place] | | | | + + + [...] | | | | | | Qualitative ([id number]) | | | | | | testing [...] Name: | REFERENCE LAB | | [facility] [facility] Address: [address] [facility] | [facility] | | [address] [place] [address] Director: RAYSHAWN GUTIERREZ MD | DIAGNOSTICS - | | | [place] | + + + + + + + + | Performing | Address | City/State/Zipcode | Phone Number | | Organization | | | | + + + + + | REFERENCE LAB | [address] | [place], [place] | [phone] | | [facility] - | [address] | [address] | | | [place] | | | [...] Name: | REFERENCE LAB | | [facility] [facility] Address: [address] [facility] [address] | [facility] | | [address] [place] [address] Director: RAYSHAWN GUTIERREZ MD | DIAGNOSTICS - | | | [place] | + + + + + + + + | Performing | Address | City/State/Zipcode | Phone Number | | Organization | | | | + + + + + | REFERENCE LAB | [address] | [place], [place] | [phone] | | [facility] - | [address] | [address] | | | [place] | | | | + + + [...] + + + + + | [facility] | [address] | [place] [address] | [phone] | | MEDICAL CENTER | | | [...] | mL/min/1.73m2 | MEMORIAL | | | [facility] | | | MEDICAL | | | [...] | [address] | [place] [address] | [phone] | | MEDICAL CENTER | | | [...] | + + + + + | [facility] | [address] [facility] | [place] [address] | [phone] | | MEDICAL CENTER | | | [...]
--- OUTSIDE RECORDS SUMMARY | ~2019-11-21 | XMS | Encounter Summary ---
Demographics + + + | Address | [address] | | | [place] [address] | + + + | Home Phone | | + + + | Preferred Language | Unknown | + + + | Marital Status | Single | + + + | Synagogue Affiliation | Unknown | + + + | Race | Unknown | + + + | Ethnic Group | Unknown | + + + Author + + + | Author | [facility] | | | and [place] | + + + | Organization | [facility] | | | and Abhinavana | + + + | Address | Unknown | + + + | Phone | Unavailable | + + + Support + + + + + | Name | Relationship | Address | Phone | + + + + + | Aaron Giron | [place] [address] | | + + + + + Care Team Providers + +------+ + | Care Energy Technician Name | Role | Phone | + +------+ + | Catracho Mullen DO | PCP | | + +------+ + Encounter Details +--------+ + + + + | Date | Type | Department | Care Team | Description | +--------+ + + + + | 12/28/ | Hospital | [facility] | Ravindra Valle | Amenorrhea | | 2013 | Encounter | [facility] | MD Caterina [address] | | | | | LABORATORY [address] | [place] [address] | | | | | [place], [place] | [phone] | | | | | [address] | | | | | | [phone] | | | +--------+ + + + [...] | HCG, URINE, QUAL | Routin | 12/28/2013 | Amenorrhea | Results for this | | | e | 11:05 AM | | procedure are in the | | | | MDT | | results section. | + +--------+ + + + documented in this encounter Results HCG, Urine, Qual (12/28/2013 [...] + + + + + | [facility] | [address] | [place] [address] | [phone] | | MEDICAL CENTER | | | | | LABORATORY | | | | + + + + + documented in this encounter Visit Diagnoses + + | Diagnosis | + + | Amenorrhea Absence of menstruation | + + documented in this encounter"
--- OUTSIDE RECORDS SUMMARY | ~2019-11-21 | XMS | Encounter Summary ---
Demographics + + + | Address | [address] | | | [place] [address] | + + + | Home Phone | | + + + | Preferred Language | Unknown | + + + | Marital Status | Single | + + + | Anglican Affiliation | Unknown | + + + | Race | Unknown | + + + | Ethnic Group | Unknown | + + + Author + + + | Author | [facility] | | | and [place] | + + + | Organization | [facility] | | | and Abhinavana | + + + | Address | Unknown | + + + | Phone | Unavailable | + + + Support + + + + + | Name | Relationship | Address | Phone | + + + + + | Aaron Giron | [place] [address] | | + + + + + Care Team Providers + +------+ + | Care Consulting Sme Name | Role | Phone | + [...] | | | | [place] | [place] [address] | | | | | [address] | [phone] | | | | | [phone] | | | +--------+ + + + [...]
--- OUTSIDE RECORDS SUMMARY | ~2019-11-21 | XMS | Encounter Summary ---
Demographics + + + | Address | [address] | | | [place] [address] | + + + | Home Phone [...] + | Author | [facility] | | | and [...] | Aaron Giron | [place] [address] | | + + + + + Care Team Providers + +------+ + | Care Distribution Agent Name | Role | Phone | + [...] + + | 06/20/ | Clinical | [facility] | Catracho Mullen, | Admission for | | 2014 | Support | [facility] | DO [address] | childhood | | | | [place], [place] | [place] [address] | immunizations | | | | [address] | [phone] | appropriate for age | | | | [phone] | | (Primary Dx) | +--------+ + [...]
--- OUTSIDE RECORDS SUMMARY | ~2019-11-21 | XMS | Encounter Summary ---
Demographics + + + | Address | [address] | | | [place] [address] | + + + | Home Phone [...] + + + | Author | [facility] | | | and [place] | + + + | Organization | [facility] | | | and Abhinavana | + + + | Address | Unknown | + + + | Phone | Unavailable | + + + Support + + + + + | Name | Relationship | Address | Phone | + + + + + | Aaron Giron | [place] [address] | | + + + + + Care Team Providers + +------+ + | Care Adaptive Physical Educator Name | Role | Phone | + [...] | +--------+ + + + + | 05/12/ | Telephone | [facility] | Wendy Jackson, | Medication Refill | | 2017 | | MEDICINE [address] | DO [address] | | | | | [address] | [address] | | | | | [place], [place] | [place] [address] | | | | | [address] | [phone] | | | | | [phone] | | | +--------+ + + + [...]
--- OUTSIDE RECORDS SUMMARY | ~2019-11-21 | XMS | Encounter Summary ---
Demographics + + + | Address | [address] | | | [place] [address] | + + + | Home Phone [...] Author | [facility] | | | and [place] [...] | Aaron Giron | [place] [address] | | + + + + + Care Team Providers + +------+ + | Care Fire Eater Name | Role | Phone | + [...] | | | | [address] | [address] | | | | | [place], [place] | [place] [address] | | | | | [address] | [phone] | | | | | [phone] | | | +--------+ + + + [...]
--- OUTSIDE RECORDS SUMMARY | ~2019-11-21 | XMS | Encounter Summary ---
Demographics + + + | Address | [address] | | | [place] [address] | + + + | Home Phone | | + + + | Preferred Language | Unknown | + + + | Marital Status | Single | + + + | Uatsdin Affiliation | Unknown | + + + | Race | Unknown | + + + | Ethnic Group | Unknown | + + + Author + + + | Author | [facility] | | | and [place] | + + + | Organization | [facility] | | | and Abhinavana | + + + | Address | Unknown | + + + | Phone | Unavailable | + + + Support + + + + + | Name | Relationship | Address | Phone | + + + + + | Aaron Giron | [place] [address] | | + + + + + Care Team Providers + +------+ + | Care Supervisor Brine Name | Role | Phone | + +------+ + | Catracho Mullen DO | PCP | | + +------+ + Reason for Visit + + + | Reason | Comments | + + + | Infertility | trying to get x 2 years | + + + Encounter Details +--------+---------+ + + + | Date | Type | Department | Care Team | Description | +--------+---------+ + + + | 03/18/ | Office | [facility] | Wendy Jackson, | Infertility | | 2016 | Visit | MEDICINE [address] | DO [address] | counseling (Primary | | | | [address] | [address] | Dx) | | | | [place], [place] | [place] [address] | | | | | [address] | [phone] | | | | | [phone] | | | +--------+---------+ + + + [...] + + + | Blood Pressure | 130/80 | 03/18/2017 3:52 PM | | | | | MDT | | + + + + + | Pulse | 96 | 03/18/2017 3:52 PM | | | | | MDT | | + + + + + | Temperature | 36.9 C (98.4 F) | 03/18/2017 3:52 PM | | | | | MDT | | + + + + + | Respiratory Rate | 18 | 03/18/2017 3:52 PM | | | | | MDT | | + + + + + | Oxygen Saturation | 100% | 03/18/2017 3:52 PM | | | | | MDT | | + + + + + | Inhaled Oxygen | - | - | | | Concentration | | | | + + + + + | Weight | 127.5 kg (281 lb) | 03/18/2017 3:52 PM | | | | | MDT | | + + + + + | Height | - | - | | + + + + + | Body Mass Index | - | - | | + + + + + documented in this encounter Patient Instructions Patient Instructions Wendy Jackson DO - 03/18/2017 3:40 PM Azra the very first day y ou have any bleeding will be considered cycle day 1. On cycle day 3 (you will still be bleeding) you will start taking letrozole for 5 days (cyc le day 3 through cycle day 7). 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 She was seen about 1 year ago for amenorrhea, was placed on prometrium and then resume d menses. She has had regular menses except she skipped last month, relates lots of stress at work. She travels back and forth to [place] for work. Prior to that she had 28 day cycles an d was using ovulation prediction kits which never turned positive. Pt is in a relationship and they strongly desire children. Discussed baseline risks with and weight. Pt is active and walks 2-4 miles daily. She is taking prenatals and will cont. We dicussed ov ulation induction along with risks and she would like to try letrozole. Given instructions Wendy Jackson documented in this encounter Plan of Treatment Not on filedocumented as of this encounter Visit Diagnoses + + | Diagnosis | + + | Infertility counseling - Primary | + + documented in this encounter"
--- OUTSIDE RECORDS SUMMARY | ~2019-11-21 | XMS | Encounter Summary ---
Demographics + + + | Address | [address] | | | [place] [address] | + + + | Home Phone | | + + + | Preferred Language | Unknown | + + + | Marital Status | Single | + + + | Shinto Affiliation | Unknown | + + + | Race | Unknown | + + + | Ethnic Group | Unknown | + + + Author + + + | Author | [facility] | | | and [...] | Aaron Giron | [place] [address] | | + + + + + Care Team Providers + +------+ + | Care Curator Of Photography And Prints Name | Role | Phone | + [...] +--------+--------+ + + + + Encounter Details +--------+---------+ + + + | Date | Type | Department | Care Team | Description | +--------+---------+ + + + | 12/06/ | Surgery | [facility] | Dewayne Ozuna | Dental Restorations: | | 2014 | | [facility] OR | [address] | 2 hours | | | | INTRA [address] | [place], [place] | | | | | [address] [place], [place] | [id number] | | | | | [address] | | | | | | [phone] | | | +--------+---------+ + + + [...] + + | [facility] | [address] [place] [address] | [phone] | | MEDICAL CENTER | | | | | LABORATORY | | | | + + + + + documented in this encounter Visit Diagnoses + + | Diagnosis | + + | Unspecified dental caries | + + | Periapical abscess without sinus | + + documented in this encounter Administered Medications + +---------+ [...] +------+------+------+ +---------+ +---------+-------+---+ | New Bag | 12/07/19 | 100 mLs | 100 | | | | 15 11:19 | | mL/hr | | | | AM MDT | | | | +---------+ +---------+-------+---+ +---+---+ | | | +---+---+ documented in this encounter
--- OUTSIDE RECORDS SUMMARY | ~2019-11-21 | XMS | Encounter Summary ---
Demographics + + + | Address | [address] | | | [place] [address] | + + + | Home Phone | | + + + | Preferred Language | Unknown | + + + | Marital Status | Single | + + + | Jehovah'S Witness Affiliation | Unknown | + + + | Race | Unknown | + + + | Ethnic Group | Unknown | + + + Author + + + | Author | [facility] | | | and [place] | + + + | Organization | [facility] | | | and Abhinavana | + + + | Address | Unknown | + + + | Phone | Unavailable | + + + Support + + + + + | Name | Relationship | Address | Phone | + + + + + | Aaron Giron | [place] [address] | | + + + + + Care Team Providers + +------+ + | Care Marine Equipment Sales Engineer Name | Role | Phone | [...] | | | | | | [place], [place] | | | | | | [address] | | | | | | [phone] | | | +--------+--------+ + + + [...]
--- OUTSIDE RECORDS SUMMARY | ~2019-11-21 | XMS | Encounter Summary ---
Demographics + + + | Address | [address] | | | [place] [address] | + + + | Home Phone | | + + + | Preferred Language | Unknown | + + + | Marital Status | Single | + + + | Evangelical Affiliation | Unknown | + + + | Race | Unknown | + + + | Ethnic Group | Unknown | + + + Author + + + | Author | [facility] | | | and [place] [...] | Aaron Giron | [place] [address] | | + + + + + Care Team Providers + +------+ + | Care Lumber Piler Name | Role | Phone | + [...] Dx) | | | | [place], [place] | [address] | | | | | [address] | [place] [address] | | | | | [phone] | [phone] | | | | | | | [...] also switch to clomid. Pt encouarged to [facility] on her wt loss journey Wendy Jackson [...]
--- OUTSIDE RECORDS SUMMARY | ~2019-11-21 | XMS | Encounter Summary ---
Demographics + + + | Address | [address] | | | [place] [address] | + + + | Home Phone | | + + + | Preferred Language | Unknown | + + + | Marital Status | Single | + + + | Restorationist Affiliation | Unknown | + + + | Race | Unknown | + + + | Ethnic Group | Unknown | + + + Author + + + | Author | [facility] | | | and [place] | + + + | Organization | [facility] | | | and Abhinavana | + + + | Address | Unknown | + + + | Phone | Unavailable | + + + Support + + + + + | Name | Relationship | Address | Phone | + + + + + | Aaron Giron | [place] [address] | | + + + + + Care Team Providers + +------+ + | Care Sas Analyst Name | Role | Phone | + +------+ + | Catracho Mullen DO | PCP | | + +------+ + Encounter Details +--------+ + + + + | Date | Type | Department | Care Team | Description | +--------+ + + + + | 12/28/ | Hospital | [facility] | Ravindra Valle | Amenorrhea | | 2013 | Encounter | [facility] | MD Caterina [address] | | | | | LABORATORY [address] | [place] [address] | | | | | [place], [place] | [phone] | | | | | [address] | | | | | | [phone] | | | +--------+ + + + [...] + + + + + | [facility] | [address] | [place] [address] | [phone] | | MEDICAL CENTER | | | | | LABORATORY | | | | + + + + + documented in this encounter Visit Diagnoses + + | Diagnosis | + + | Amenorrhea Absence of menstruation | + + documented in this encounter"
--- OUTSIDE RECORDS SUMMARY | ~2019-11-21 | XMS | Encounter Summary ---
Demographics + + + | Address | [address] | | | [place] [address] | + + + | Home Phone | | + + + | Preferred Language | Unknown | + + + | Marital Status | Single | + + + | Hinduism Affiliation | Unknown | + + + | Race | Unknown | + + + | Ethnic Group | Unknown | + + + Author + + + | Author | [facility] | | | and [place] | + + + | Organization | [facility] | | | and Abhinavana | + + + | Address | Unknown | + + + | Phone | Unavailable | + + + Support + + + + + | Name | Relationship | Address | Phone | + + + + + | Aaron Giron | [place] [address] | | + + + + + Care Team Providers + +------+ + | Care Facilities Specialist Name | Role | Phone | [...] + + | 12/06/ | Surgery | [facility] | Dewayne Ozuna | Dental Restorations: | | 2014 | | [facility] OR | [address] | 2 hours | | | | INTRA [address] | [place], [place] | | | | | [address], [place] | [id number] | | | | | [address] | | | | | | [phone] | | | +--------+---------+ + + + [...] | [facility] | [address] [address] | [phone] | | MEDICAL CENTER | | | [...]
--- OUTSIDE RECORDS SUMMARY | ~2019-11-21 | XMS | Encounter Summary ---
Demographics + + + | Address | [address] | | | [place] [address] | + + + | Home Phone [...] | [facility] | | | and [place] [...] | Aaron Giron | [place] [address] | | + + + + + Care Team Providers + +------+ + | Care Engineering Drafter Name | Role | Phone | + [...] + + | 12/06/ | Anesthesia | [facility] | Sandeep Starks, | | | 2014 | Event | [facility] OR | BASEBALL PITCHER [address] | | | | | [address] | [place] [address] | | | | | [place] [address] | [phone] | | | | | [address] | | | | | | [phone] | | | +--------+ + + + + Anesthesia Record + + + + + | Procedure Name | Responsible | Anesthesia Start | Anesthesia Stop Time | | | Anesthesiologist | Time | | + + + + + | Dental Restorations: | Sandeep Starks, | 12/06/14 1151 | 12/06/14 1358 | | 2 hours (N/A | BASEBALL PITCHER | | | | Mouth) | | [...] +----+---+ + + | | 1 | [place] | | | | 2 | 43-degrees | | | | 0 | | | | | 5 | | | +----+---+ + + | | 1 | Pre-Procedu | | | | 2 | ral Timeout | | | | 0 | Completed | | | | 6 | | | +----+---+ + + | | 1 | [place] off | | | | 3 | [...] | Ventilation: EZ; Airway Grade: I; | BASEBALL PITCHER | BASEBALL PITCHER | | | Successful Technique: Mac; | [...] Placed By: | | | | | BASEBALL PITCHER; Removal Date: 12/06/14; | | | | [...] mg | | | | PRN, Starting [facility] 12/06/14 at | | 15 12:00 | | | | | 1200, Anesthesia Intra-op | | PM MDT | | | | + +-------+ +--------+---+---+ +---+---+ | | | +---+---+ + +-------+ +------+---+---+ | rocuronium (ZEMURON) injection | Given | 12/07/19 | 5 mg | | | | PRN, Ventilator Dyssynchrony, | | 15 11:59 | | | | | Starting [facility] 12/06/14 at 1159, | | AM MDT | | | | | Anesthesia Intra-op | | | | | | + +-------+ +------+---+---+ +---+---+ | | | +---+---+ + +-------+ +--------+---+---+ | succinylcholine (ANECTINE) | Given | 12/07/19 | 100 mg | | | | injection Intravenous, PRN, | | 15 12:01 | | | | | Starting [facility] 12/06/14 at 1201, | | PM MDT | | | | | Anesthesia Intra-op | | | | | | + +-------+ +--------+---+---+ +---+---+ | | | +---+---+ documented in this encounter
--- OUTSIDE RECORDS SUMMARY | ~2019-11-21 | XMS | Encounter Summary ---
Demographics + + + | Address | [address] | | | [place] [address] | + + + | Home Phone [...] | [facility] | | | and [place]wick [...] | Aaron Giron | [place] [address] | | + + + + + Care Team Providers + +------+ + | Care Marriage And Family Teacher Name | Role | Phone | + [...] | Dx); Amenorrhea, | | | | [facility] | [facility] | secondary | | | | [place] | [place] [address] | | | | | [address] | [phone] | | | | | [phone] | | | +--------+---------+ + + + [...] | 1.010, 1.015, | | | | [place], | | 1.020, 1.025 | | | [...]
--- OUTSIDE RECORDS SUMMARY | ~2019-11-21 | XMS | Encounter Summary ---
Demographics + + + | Address | [address] | | | [place] [address] | + + + | Home Phone [...] + | Author | [facility] | | | and [place] [...] | Aaron Giron | [place] [address] | | + + + + + Care Team Providers + +------+ + | Care Gas Operations Analyst Name | Role | Phone | [...] + + | 12/03/ | Office | [facility] | Junie Bowie, | Dental caries | | 2015 | Visit | [facility] | Leonela Diggs PA-C [address] | (Primary Dx) | | | | [address] | [address] [place], [place] | | | | | [place] | [address] | | | | | [address] | | | | | | [phone] | | | +--------+---------+ + + + [...] 1998: AGE: 14 y.o. ENCOUNTER DATE: 12/03/2014 [facility] Leonela Bowie PA-C Physician Senior Enterprise Architect-Certified, [facility] [phone] CURRENT ASSESSMENT AND PLAN 1. Dental caries [...] No masses. No hepatosplenomegaly. Negative [facility]. MUSKULOSKELETAL: Normal muscular development. Normal gait NEUROLOGICAL: [...]
--- OUTSIDE RECORDS SUMMARY | ~2019-11-21 | XMS | Encounter Summary ---
Demographics + + + | Address | [address] | | | [place] [address] | + + + | Home Phone [...] Author | [facility] | | | and [place] [...] | Aaron Giron | [place] [address] | | + + + + + Care Team Providers + +------+ + | Care Rougher For Cement Name | Role | Phone | + [...] [facility] [address] | [place] [address] | initial encounter | | | | [address] [place], | [phone] | (Primary Dx) | | | | [place] [address] | | | | | | [phone] | | | +--------+ + + + [...] + | MISCELLANEOUS LAB | | | [phone] | + +---------+ + + | MISCELANIOUS LAB | | | [phone] | + +---------+ + + documented in [...]
--- OUTSIDE RECORDS SUMMARY | ~2019-11-21 | XMS | Encounter Summary ---
Demographics + + + | Address | [address] | | | [place] [address] | + + + | Home Phone | | + + + | Preferred Language | Unknown | + + + | Marital Status | Single | + + + | Lutheran Affiliation | Unknown | + + + | Race | Unknown | + + + | Ethnic Group | Unknown | + + + Author + + + | Author | [facility] | | | and [place] | + + + | Organization | [facility] | | | and [facility] | + + + | Address | Unknown | + + + | Phone | Unavailable | + + + Support + + + + + | Name | Relationship | Address | Phone | + + + + + | Aaron Giron | [place] [address] | | + + + + + Care Team Providers + +------+ + | Care Education Trainer Name | Role | Phone | + +------+ + | Catracho Mullen DO | PCP | | + +------+ + Reason for Visit + + + | Reason | Comments | + + + | Paperwork | | + + + | Annual Exam | | + + + Encounter Details +--------+---------+ + + + | Date | Type | Department | Care Team | Description | +--------+---------+ + + + | 06/01/ | Office | [facility] | Catracho Mullen, | Well child visit | | 2013 | Visit | [facility] | DO [address] | (Primary Dx); | | | | [address] | [place] [address] | History of ADHD; | | | | [place] | [phone] | History of | | | | [address] | | depression | | | | [phone] | | | +--------+---------+ + + + [...] + + + | Blood Pressure | 110/77 | 06/01/2014 2:36 PM | | | | | MST | | + + + + + | Pulse | 76 | 06/01/2014 2:36 PM | | | | | MST | | + + + + + | Temperature | 36.7 C (98 F) | 06/01/2014 2:36 PM | | | | | MST | | + + + + + | Respiratory Rate | 16 | 06/01/2014 2:36 PM | | | | | MST | | + + + + + | Oxygen Saturation | 95% | 06/01/2014 2:36 PM | | | | | MST | | + + + + + | Inhaled Oxygen | - | - | | | Concentration | | | | + + + + + | Weight | 103.9 kg (229 lb) | 06/01/2014 2:36 PM | | | | | MST | | + + + + + | Height | 172.7 cm (5' 8") | 06/01/2014 2:36 PM | | | | | MST | | + + + + + | Body Mass Index | 34.82 | 06/01/2014 2:36 PM | | | | | PST | | + + + + + documented in this encounter Patient Instructions Patient Instructions Catracho Mullen, DO - 06/01/2014 7:48 PM MST Well-Child Checkup: 14-18 Years During the teen years, it s important to keep having yearly checkups. Your teen may be em barrassed about having a checkup. Reassure your teen that the exam is normal and necessary. Also be aware that the health care provider may ask to talk with your child without you in [facility] exam room. Stay involved in your teen s life. Make sure your teen knows you re always there when h e or she needs to talk. School and Social Issues Here are some topics you, your teen, and the health care provider may want to discuss ever capps this visit: School performance. How is your child doing in school? Is homework finished on time? Kiran s your child stay organized? These are skills you can help with. Keep in mind that a drop in school performance can be a sign of other problems. Friendships. Do you like your child s friends? Do the friendships seem healthy? Make s ure to talk to your teen about who his or her friends are and how they spend time together. Peer pressure can be a problem among teenagers. Life at home. How is your child s behavior? Does he or she get along with others in [facility] family? Is he or she respectful of you, other adults, and authority? Does your child parti cipate in family events, or does he or she withdraw from other family members? Risky behaviors. Many teenagers are curious about drugs, alcohol, smoking, and sex. Talk openly about these issues. Answer your child s questions, and don t be afraid to ask qu estions of your own. If you re not sure how to approach these topics, talk to the health c are provider for advice. Puberty Your teen may still be experiencing some of the changes of puberty, such as: Acne and body odor. Hormones that increase during puberty can cause acne (pimples) on th e face and body. Hormones can also increase sweating and cause a stronger body odor. Body changes. The body grows and matures during puberty. Hair will grow in the pubic are a and on other parts of the body. Girls grow breasts and menstruate (have monthly periods). A boy s voice changes, becoming lower and deeper. As the penis matures, erections and wet dreams will start to happen. Talk to your teen about what to expect, and help him or her lenore l with these changes when possible. Emotional changes. Along with these physical changes, you ll likely notice changes in your teen s personality. He or she may develop an interest in dating and becoming more than friends with other kids. Also, it s normal for your teen to be perez. Try to be pa tient and consistent. Encourage conversations, even when he or she doesn t seem to want to talk. No matter how your teen acts, he or she still needs a parent. Nutrition and Exercise Tips Your teenager likely makes his or her own decisions about what to eat and how to spend free time. You can t always have the final say, but you can encourage healthy habits. Your todd n should: Get at least 30 minutes to 60 minutes of physical activity every day. This time can be b roken up throughout the day. After-school sports, dance or martial arts classes, riding a bi ke, or even walking to school or a friend s house counts as activity. Limit screen time to 1 hour to 2 hours each day. This includes time spent watching TV, playing video games, using the computer, and texting. If your teen has a TV, computer, or video game console in the bedroom, consider replacing it with a music player. Eat healthy. Your child should eat fruits, vegetables, lean meats, and whole grains ever y day. Less healthy foods like mohawk fries, candy, and chips should be eaten rarely. So me teens fall into the trap of snacking on junk food and fast food throughout the day. Make sure the kitchen is stocked with healthy options for after-school snacks. If your teen does choose to eat junk food, consider making him or her buy it with his or her own money. Eat 3 meals a day. A lot of kids skip breakfast and even lunch. Not only is this unhealt hy, it can also hurt school performance. Make sure your teen eats breakfast. If your teen do es not like the food served at school for lunch, allow him or her to prepare a bag lunch. Have at least one family meal with you each day. Busy schedules often limit time for sit ting and talking. Sitting and eating together allows for family time. It also lets you see w hat and how your child eats. Limit soda and juice drinks. A small soda is OK once in a while. But it s no substitut e for healthier drinks. Sports and juice drinks are no better. Water and low-fat or nonfat m ilk are the best choices. Hygiene Tips Teenagers should bathe or shower daily and use deodorant. Let the health care provider know if you or your teen have questions about hygiene or ac ne. Bring your teen to the dentist at least twice a year for teeth cleaning and a checkup. Remind your teen to brush and floss his or her teeth before bed. Sleeping Tips During the teen years, sleep patterns may change. Many teenagers have a hard time falling a sleep, which can lead to sleeping late the next morning. Here are some tips to help your todd n get the rest he or she needs: Encourage your teen to keep a consistent bedtime, even on weekends. Sleeping is easier w hen the body follows a routine. Don t let your teen stay up too late at night or sleep in too long in the morning. Help your teen wake up, if needed. Go into the bedroom, open the blinds, and get your te en out of bed even on weekends or during school vacations. Being active during the day will help your child sleep better at night. Discourage use of the TV, computer, or video games for at least an hour before your teen goes to bed. (This is good advice for parents, too!) Make a rule that cell phones must be turned off at night. Safety Tips Set rules for how your teen can spend time outside of the house. Give your child a night time curfew. If your child has a cell phone, check in periodically by calling to ask where h e or she is and what he or she is doing. Make sure cell phones and portable music players are used safely and responsibly. Help y our teen understand that it is dangerous to talk on the phone, text, or listen to music with headphones while he or she is riding a bike or walking outdoors, especially when crossing t he street. Constant loud music can cause hearing damage, so monitor your teen s music volume. Man y music players let you set a limit for how loud the volume can be turned up. Check the dire ctions for details. When your teen is old enough for a truck driver s license, encourage safe driving. Teach you r teen to always wear a seat belt, drive the speed limit, and follow the rules of the road. Do not allow your teenager to text or talk on a cell phone while driving. (And don t do th is yourself! Remember, you set an example.) Set rules and limits around driving and use of the car. If your teen gets a ticket or garcia s an accident, there should be consequences. Driving is a privilege that can be taken away i f your child doesn t follow the rules. Teach your child to make good decisions about drugs, alcohol, sex, and other risky behav iors. Work together to come up with strategies for staying safe and dealing with peer pressu re. Make sure your teenager knows he or she can always come to you for help. Tests and Vaccinations If you have a strong family history of high cholesterol, your teen s blood cholesterol ma y be tested at this visit. Based on recommendations from the CDC, at this visit your child m ay receive the following vaccinations: Hepatitis B Meningococcal Tetanus, diphtheria, and pertussis Influenza Recognizing Signs of Depression It s normal for teenagers to have extreme mood swings as a result of their changing hormo jessie. It s also just a part of growing up. But sometimes a teenager s mood swings are sig ns of a larger problem. If your teen is always depressed, you should be concerned. Signs of depression include: Use of drugs or alcohol Problems in school and at home Frequent episodes of running away Thoughts or talk of or suicide Withdrawal from family and friends Sudden changes in eating or sleeping habits Sexual promiscuity or unplanned Hostile behavior or rage Loss of pleasure in life Depressed teens can be helped with treatment. Talk to your child s health care provider. Or check with your local mental health center, social service agency, or hospital. Assure yo ur teen that his or her pain can be eased. Offer your love and support. If your teen talks a bout or suicide, seek help right away. Next checkup at: PARENT NOTES: [id number] [employer]. [address] [place] [address]. All righ ts reserved. This information is not intended as a substitute for professional medical care. Always follow your healthcare professional's instructions. June 01, 2014 Norma Green [address] [place] [id number] Dear Norma: Thank you for enrolling in [employer]. Please follow the instructions below to view your [facility] online medical record. [employer] allows you to send secure messages to your doctor, view you r test results, renew your prescriptions, schedule appointments, and more. How Do I Sign Up? 1. In your Internet browser, go to [email or web address] 2. Click on the "Sign up with your activation code" button in the "New User?" box. This julia l take you to the New Member Sign Up page. 3. Enter your [employer] activation code exactly as it appears below. You will not need to use this code after you sign up. If you do not sign up before the expiration date, you must req uest a new code through your [facility] or [facility] participating clinic. [facility] Activation Code: [email or web address] Expires: 07/31/2014 19:59 4. Fill in the last four digits of your Social Security Number (xxxx) and Date of (mm /dd/yyyy) and click Next. 5. Create a [facility] username. Your username cannot be changed, so think of one t hat is secure and easy to remember. 6. Create a [employer] password. You can change your password at any time. 7. Enter your security question and answer. This can be used at a later time if you forget your password. Click Next. 8. Enter your e-mail address. You will receive e-mail notification when new information is available in [employer]. 9. Click "Sign In". You may now view your medical record. Additional Information If you have questions, you can email or call [phone] to talk to our [facility] care team. Please remember, [employer] should NOT be used for urg ent needs. For all medical emergencies, call 911. Sincerely, Catracho Mullen DO documented in this encounter Progress Notes Catracho Mullen DO - 06/01/2014 7:48 PM MSTFormatting of this note might be different f rom the original. Norma Green is a 14 y.o. 0 m.o. female who presents for a well check. History today was provided by Mother and Sister. Questions or concerns today Active Medical Problems: Patient Active Problem List Diagnosis Date Noted POA History of ADHD 06/01/2014 Unknown History of depression 06/01/2014 Unknown The following guardian questionnaire answers were reviewed and discussed. General Health 1. Any concerns about your health today? no 2. Do you receive health care from anyone besides a medical doctor (dial printer, herbalis t, power digger operator)? no Nutrition 3. Eating 5 or more helpings of fruits/vegetables each day? yes 4. Are your breads, pastas, cereals mostly whole grain? yes 5. Do you eat or drink at least 2-3 servings of calcium rich food per day (beans, green gloria fy vegetables, milk, yogurt, cheese, calcium-fortified orange juice, soymilk or cereal)? yes 6. Do you eat more than 1 fast food meal per week? no 7. Do you drink sugary drinks (soda, juice, energy drinks)? no 8. Do you eat meals together as a family? yes 9. Do you have any concerns or questions about the size or shape of your body? no 10. In the past year have you tried to control your weight by vomiting, taking diet pills o r laxatives, or starving yourself? no Oral Health 11. Do you brush your teeth at least twice a day? yes 12. Do you floss your teeth at least once a day? yes 13. Have you been to the dentist in the last year? yes Activity 14. Do you participate in any physical activities such as walking, skateboarding, dancing, swimming, or playing basketball at least 4 days per week? yes 15. Do you play competitive sports? no a. If yes, is there any family history of heart problems or sudden ? no 16. Do you watch TV, play video games, or spend time on the computer more than 2 hours per day (not including computer time for homework)? no a. Do you have a TV, video game machine, or computer in your room? no School 17. Are you having problems in school or work? no 18. Grades worse than last year? no 19. Trouble concentrating? no 20. Fighting? no 21. Homework problems? no 22. Suspension in the last year? no 23. Missing school or work? no Injury Prevention 24. Do you always wear a seat belt when you are in a car? yes 25. Do you wear a helmet when you play team sports, in-line skate, skateboard, bicycle, ski , snowboard, or ride a motorcycle, ATV, minibike, or snowmobile? yes 26. Do you ever carry a gun? no 27. Is there a gun in your home? no 28. Have you started to learn how to drive or do you drive? no a. Use a cellphone or headphones while driving? no b. Do you text while driving? no Tuberculosis 29. Has a family member or contact had tuberculosis disease? no 30. Has a family member had a positive TB skin test (PPD)? no 31. Was your child born in a high-risk country (countries other than the [place]., [place], [facility], or [place])? no 32. Has your child traveled to a high-risk country for more than a week? no Emotional Wellbeing 33. Do you worry a lot or feel overly stressed out? no 34. When you are angry, do you do violent things? no 35. Do you find yourself continuing to remember or think about an unpleasant experience maria t happened in the past? no 36. During the past few weeks have you often felt sad or down, had difficulty sleeping, tiny quently felt irritable, or felt like you have nothing to look forward to? no 37. Have you ever seriously thought about killing yourself, made a plan, or actually tried to kill yourself? no 38. Is there someone at home, school, or work that has made you feel afraid, threatened you , or hurt you? no 39. Even with usual ups and downs, do you enjoy life? yes 40. Do you get along with your family? yes 41. Do you follow your family s rules? yes Review of Systems: Any Concerns about... 42. Eating habits, weight loss, or lack of energy? no 43. Sleep problems, including excessive snoring? no 44. Eye redness, excessive tearing or discharge? no 45. Recurrent ear, sinus or throat infections, nosebleeds? no 46. Chest pain, shortness of breath, or irregular heartbeat? no 47. Frequent colds, cough, wheezing, recurrent lung infections? no 48. Abdominal pain, vomiting, diarrhea, constipation? no 49. Kidney or bladder problems, infections, blood in the urine? no 50. Birthmarks, skin rashes, itching, nail or hair problems? no 51. Joint pain, stiffness, swelling, muscle pain or weakness? no 52. Headaches, dizziness, tics, weakness, seizures? no 53. Mood changes, sadness, nervous problems? no 54. Excessive thirst or hunger, increased urination? no 55. Paleness, anemia, easy bruising, swollen glands? no 56. Puberty? yes For females 57. Have you gotten your period? yes 58. Problems or questions about menstruation? no 59. Do you get your periods monthly (21-35 days apart)? yes 60. When was your last period? Confidential questionnaire regarding sexual activity, sexual orientation, sexual abuse, phy sical abuse, tobacco use, alcohol use, and illegal drug use was filled out by patient withou t the parent or others present in room. History of sexual intercourse? no Areas of concern are Risk Taking Behaviors, Mood Disorder, Legal Issues and These issues brandt ortiz led to recent incarceration. Patient is now enrolled in [place] [employer] [facility] program and is in need of medical clearance to participate. It appears this is part of her parole and leg al consequences Safe behaviors were encouraged Yes Patient History: Past Medical History Diagnosis Date ADHD (attention deficit hyperactivity disorder) Depression Asthma Patient Active Problem List Diagnosis Date Noted POA History of ADHD 06/01/2014 Unknown History of depression 06/01/2014 Unknown History Social History Narrative Merged History Encounter Physical Exam - Bold Portions Require Special Attention Vitals: BP 110/77 | Pulse 76 | Temp 36.7 C (98 F) (Temporal) | Resp 16 | Ht 1.727 m (5' 8") | Wt 103.874 kg (229 lb) | BMI 34.83 kg/m2 | SpO2 95% | LMP 06/01/2014 | ? No Weight %ile: 99.14%ile based on CDC 2-20 Years [id number] data. Height %ile: 94.11%ile based on CDC 2-20 Years [id number] data. BMI %ile: 98.39%ile based on CDC 2-20 Years BMI-for-age data. BP %ile: 33.0% systolic and 79.1% diastolic of BP percentile by age, sex, and height. 132/8 6 is approximately the 95th BP percentile reading. Constitutional: awake and alert in no acute distress Head: normocephalic, atraumatic Eyes: extraocular movements intact, sclera/conjunctiva normal, bilateral red reflexes, opht halmoscopic examination of optic nerve and retinal vessels was successful, no abnormalities detected Ears: tympanic membranes clear bilaterally Nose / Mouth: nasal septum midline, mucosa pink without significant exudates, clear orophar ynx Neck: supple, no lymphadenopathy Heart: regular rate and rhythm, no murmurs, gallops or rubs Lungs: clear to auscultation bilaterally with no rhonchi, rales or wheezes Abdomen: soft, non-tender, no masses, no organomegaly Breast: SMR 4 : Not performed patient has had recent complete STD workup Ext / MSK: warm and well perfused, symmetric tone and movement, no evidence of scoliosis Skin: no rashes, no significant acne, no bruising, no tattoos, piercings, or any signs of a buse or self-inflicted injuries, no unusual or changing birthmarks or nevi, no acanthosis ni gricans Neuro: no focal deficits, normal tone/strength Visual and Hearing Test Results: No exam data present Assessment/Plan 1) Assessment/Plan: 1. Well child visit 2. History of ADHD 3. History of depression 2) Developmental Surveillance: High Risk for developmental delay refer to pelon maxwellnehemiah myrick currently participating in court ordered [place] [employer]. She has been seeing lauryn funes locally. They will be providing documentation to help they youth [facility] in their rehabil itative efforts. 3) Appropriate anticipatory guidance given for age including development, behavior, safety, nutrition, and parenting, physical and oral health, body image, healthy eating, physical ac tivity , connectedness with family, peers, and community, interpersonal relationships, schoo l performance, coping, mood regulation and mental health, tobacco, alcohol, or other drugs, driving (graduated license) and substance abuse, sexuality, , STIs, safety belt and helmet use, guns, interpersonal violence (dating violence) and bullying. All questions ans wered and age-appropriate handout given 4) Vaccines: Patient is going to have immunizations updated at [address] 5) Follow-up: Return if symptoms worsen or fail to improve.. documented in this encounter Plan of Treatment Not on filedocumented as of this encounter Visit Diagnoses + + | Diagnosis | + + | Well child visit - Primary Routine infant or child health check | + + | History of ADHD Personal history of other mental disorder | + + | History of depression Personal history of other mental disorder | + + documented in this encounter
--- OUTSIDE RECORDS SUMMARY | ~2019-11-21 | XMS | Encounter Summary ---
Demographics + + + | Address | [address] | | | [place] [address] | + + + | Home Phone [...] | Author | [facility] | | | and [place] [...] | Aaron Giron | [place] [address] | | + + + + + Care Team Providers + +------+ + | Care Manager Respiratory Care Name | Role | Phone | + [...] + + | 05/10/ | Office | [facility] | Wendy Jackson, | Infertility | | 2018 | Visit | CLINIC [address] | DO [address] | associated with | | | | [place], [place] | [address] | anovulation (Primary | | | | [address] | [place] [address] | Dx) | | | | [phone] | [phone] | | | | | | | [...]
--- OUTSIDE RECORDS SUMMARY | ~2019-11-21 | XMS | Encounter Summary ---
Demographics + + + | Address | [address] | | | [place] [address] | + + + | Home Phone | | + + + | Preferred Language | Unknown | + + + | Marital Status | Single | + + + | Druze Affiliation | Unknown | + + + | Race | Unknown | + + + | Ethnic Group | Unknown | + + + Author + + + | Author | [facility] | | | and [place] | + + + | Organization | [facility] | | | and Abhinavana | + + + | Address | Unknown | + + + | Phone | Unavailable | + + + Support + + + + + | Name | Relationship | Address | Phone | + + + + + | Aaron Giron | [place] [address] | | + + + + + Care Team Providers + +------+ + | Care Chopped Strand Operator Name | Role | Phone | + +------+ + | Catracho Mullen DO | PCP | | + +------+ + Encounter Details +--------+ + + + + | Date | Type | Department | Care Team | Description | +--------+ + + + + | 12/28/ | Orders Only | [facility] | Ravindra Valle | Amenorrhea (Primary | | 2013 | | [facility] | MD Caterina [address] | Dx) | | | | [address] | [place] [address] | | | | | [place], [place] | [phone] | | | | | [address] | | | | | | [phone] | | | +--------+ + + + [...] + + + + + | [facility] | [address] [facility] | [place] [address] | [phone] | | MEDICAL CENTER | | | | | LABORATORY | | | | + + + + + documented in this encounter Visit Diagnoses + + | Diagnosis | + + | Amenorrhea - Primary Absence of menstruation | + + documented in this encounter"
--- OUTSIDE RECORDS SUMMARY | ~2019-11-21 | XMS | Encounter Summary ---
Demographics + + + | Address | [address] | | | [place] [address] | + + + | Home Phone | | + + + | Preferred Language | Unknown | + + + | Marital Status | Single | + + + | Caodaism Affiliation | Unknown | + + + | Race | Unknown | + + + | Ethnic Group | Unknown | + + + Author + + + | Author | [facility] | | | and [place] | + + + | Organization | [facility] | | | and Abhinavana | + + + | Address | Unknown | + + + | Phone | Unavailable | + + + Support + + + + + | Name | Relationship | Address | Phone | + + + + + | Aaron Giron | [place] [address] | | + + + + + Care Team Providers + +------+ + | Care Janitorial Manager Name | Role | Phone | [...] RICH | | | | | [address] | [place] [address] | | | | | [address] | [phone] | | | | | [phone] | | | +--------+ + + + [...]
--- OUTSIDE RECORDS SUMMARY | ~2019-11-21 | XMS | Encounter Summary ---
Demographics + + + | Address | [address] | | | [place] [address] | + + + | Home Phone | | + + + | Preferred Language | Unknown | + + + | Marital Status | Single | + + + | Gnosticist Affiliation | Unknown | + + + | Race | Unknown | + + + | Ethnic Group | Unknown | + + + Author + + + | Author | [facility] | | | and [place] | + + + | Organization | [facility] | | | and Abhinavana | + + + | Address | Unknown | + + + | Phone | Unavailable | + + + Support + + + + + | Name | Relationship | Address | Phone | + + + + + | Aaron Giron | [place] [address] | | + + + + + Care Team Providers + +------+ + | Care Customer Care Manager Name | Role | Phone | [...] RICH | | | | | [address] | [place] [address] | | | | | [address] | [phone] | | | | | [phone] | | | +--------+ + + + [...]
--- OUTSIDE RECORDS SUMMARY | ~2019-11-21 | XMS | Encounter Summary ---
Demographics + + + | Address | [address] | | | [place] [address] | + + + | Home Phone | | + + + | Preferred Language | Unknown | + + + | Marital Status | Single | + + + | Denominational Affiliation | Unknown | + + + | Race | Unknown | + + + | Ethnic Group | Unknown | + + + Author + + + | Author | [facility] | | | and [...] | Aaron Giron | [place] [address] | | + + + + + Care Team Providers + +------+ + | Care Manager Process Excellence Name | Role | Phone | + [...] + + | 06/01/ | Office | [facility] | Catracho Mullen, | Well child visit | | 2013 | Visit | [facility] | DO [address] | (Primary Dx); | | | | [address] | [place] [address] | History of ADHD; | | | | [place] | [phone] | History of | | | | [address] | | depression | | | | [phone] | | | +--------+---------+ + + + [...] talk with your child without you in [facility] exam room. Stay involved in your [...] or she get along with others in [facility] family? Is he or she respectful [...] ever y day. 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 Teach [...] right away. Next checkup at: PARENT NOTES: [phone] [employer]. [address] [place] [address]. All righ ts reserved. This information is not intended as a substitute for professional medical care. Always follow your healthcare professional's instructions. June 01, 2014 Norma Green [address] [place] [id number] Dear Norma: Thank you for enrolling in [employer]. Please follow the instructions below to view your PS DEPT. online medical record. [employer] allows you to send secure messages to your doctor, view you r test results, renew your prescriptions, schedule appointments, and more. How Do I Sign Up? 1. In your Internet browser, go to [email or web address] 2. Click on the "Sign up with your activation code" button in the "New User?" box. This julia l take you to the New Member Sign Up page. 3. Enter your [employer] activation code exactly as it appears below. You will not need to use this code after you sign up. If you do not sign up before the expiration date, you must req uest a new code through your [facility] or [facility] participating clinic. [employer] [facility] Activation Code: [email or web address] Expires: 07/31/2014 19:59 4. Fill in the last four digits of your Social Security Number (xxxx) and Date of (mm /dd/yyyy) and click Next. 5. Create a [facility] username. Your username cannot be changed, so think of one t hat is secure and easy to remember. 6. Create a [employer] password. You can change your password at any time. 7. Enter your security question and answer. This can be used at a later time if you forget your password. Click Next. 8. Enter your e-mail address. You will receive e-mail notification when new information is available in [employer]. 9. Click "Sign In". You may now view your medical record. Additional Information If you have questions, you can email [email or web address] or call [phone] to talk to our [employer] care team. Please remember, [employer] should NOT be used for urg ent [...] care from anyone besides a medical doctor (traditional maori health practitioner, herbalis t, laboratory associate)? no Nutrition 3. Eating 5 or more [...] (countries other than the [place]., [place], [facility], or [place])? no 32. Has [...] recent incarceration. Patient is now enrolled in [place] [employer] program and is in need of medical [...] %ile: 99.14%ile based on CDC 2-20 Years zkdhcm-[id number]-rnn data. Height %ile: 94.11%ile based on CDC 2-20 Years joamhvd-jgs-elv data. BMI %ile: 98.39%ile based on CDC [...] [place]hemiah myrick currently participating in court ordered [place] [employer]. She has been seeing lauryn [...] is going to have immunizations updated at [address] 5) Follow-up: Return if symptoms worsen [...]
--- OUTSIDE RECORDS SUMMARY | ~2019-11-21 | XMS | Encounter Summary ---
Demographics + + + | Address | [address] | | | [place] [address] | + + + | Home Phone [...] | Author | [facility] | | | and [place] [...] | Aaron Giron | [place] [address] | | + + + + + Care Team Providers + +------+ + | Care Fuselage Framer Name | Role | Phone | + [...] | counseling (Primary | | | | [address] | Dx) | | | | [place], [place] | [place] [address] | | | | | [address] | [phone] | | | | | [phone] | | | +--------+---------+ + + + [...] work. She travels back and forth to [place] for work. Prior to that she had [...]
--- OUTSIDE RECORDS SUMMARY | ~2019-11-21 | XMS | Encounter Summary ---
Demographics + + + | Address | [address] | | | [place] [address] | + + + | Home Phone | | + + + | Preferred Language | Unknown | + + + | Marital Status | Single | + + + | Jain Affiliation | Unknown | + + + | Race | Unknown | + + + | Ethnic Group | Unknown | + + + Author + + + | Author | [facility] | | | and [place] | + + + | Organization | [facility] | | | and Abhinavana | + + + | Address | Unknown | + + + | Phone | Unavailable | + + + Support + + + + + | Name | Relationship | Address | Phone | + + + + + | Aaron Giron | [place] [address] | | + + + + + Care Team Providers + +------+ + | Care Sample Washer Name | Role | Phone | + [...] + | 04/03/ | Telephone | [facility] | James Butt, | Medication | | 2013 | | [facility] | [facility] [address] [facility] | Management | | | | [address] [facility] | Dr Roth, | (Albuterol) | | | | [place], [place] | [place] [address] | | | | | [address] | [phone] | | | | | [phone] | | | +--------+ + + + [...]
--- OUTSIDE RECORDS SUMMARY | ~2019-11-21 | XMS | Encounter Summary ---
Demographics + + + | Address | [address] | | | [place] [address] | + + + | Home Phone | | + + + | Preferred Language | Unknown | + + + | Marital Status | Single | + + + | Taoism Affiliation | Unknown | + + + | Race | Unknown | + + + | Ethnic Group | Unknown | + + + Author + + + | Author | [facility] | | | and [place] [...] | Aaron Giron | [place] [address] | | + + + + + Care Team Providers + +------+ + | Care Perinatal Tech Name | Role | Phone | [...] | | | [place], [place] | [place] [address] | | | | | [address] | [phone] | | | | | [phone] | | | +--------+ + + + [...]
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
--- OUTSIDE RECORDS SUMMARY | ~2019-11-21 | XMS | Encounter Summary ---
Demographics + + + | Address | [address] | | | [place] [address] | + + + | Home Phone | | + + + | Preferred Language | Unknown | + + + | Marital Status | Single | + + + | Gnosticism Affiliation | Unknown | + + + | Race | Unknown | + + + | Ethnic Group | Unknown | + + + Author + + + | Author | [facility] | | | and [place] | + + + | Organization | [facility] | | | and Abhinavana | + + + | Address | Unknown | + + + | Phone | Unavailable | + + + Support + + + + + | Name | Relationship | Address | Phone | + + + + + | Aaron Giron | [place] [address] | | + + + + + Care Team Providers + +------+ + | Care Paper Production Engineer Name | Role | Phone | [...] + + | 05/16/ | Office | [facility] | Junie Bowie, | Viral | | 2013 | Visit | [facility] | Leonela Diggs PA-C 805 | gastroenteritis | | | | [address] | [place], [place] | (Primary Dx); | | | | [place], [place] | [id number] | Acanthosis | | | | [address] | | nigricans; | | | | [phone] | | Unprotected sexual | | | [...] not better with fever medication New rash [id number] [facility], [address] [place] [address], [place] [address]. All rights reserve d. This information is not intended as a substitute for professional medical care. Always fo llow your healthcare professional's instructions. documented in this encounter Progress Notes Leonela Bowie PA - 05/16/2014 10:38 AM MSTFormatting of this note might be differ ent from the original. PATIENT NAME: Norma Green : 2000: AGE: 13 y.o. ENCOUNTER DATE: 05/16/2014 [facility] IDRIS Cid Physician Superintendent Transportation-Certified, [facility] [phone] CURRENT ASSESSMENT AND PLAN 1. Viral gastroenteritis [...] vaginal discharge. Did not go to the [facility] as directed for STD testing. Endorses [...] No masses. No hepatosplenomegaly. Negative McBurneys and [place]. MUSKULOSKELETAL: Normal muscular development. Normal gait NEUROLOGICAL: [...] N. gonorrhoeae, NAAT (APTIMA) (05/16/2014 11:19 AM [facility]) + + + + + + | [...] | | DIAGNOSTICS | | | | Assay([employer] | | - [place] | | [...] REFERENCE LAB | | Name: [facility] [address] Address: [address] | [facility] | | [address] [place] [address] Director: RAYSHAWN [facility] - | | MD MATT | [place] | + + + + + + + + | Performing | Address | City/State/Zipcode | Phone Number | | Organization | | | | + + + + + | REFERENCE LAB | [address] | [place], [place] | [phone] | | [facility] - | [address] | [address] | | | [place] | | | [...] Name: | REFERENCE LAB | | [facility] Address: [address] [place] [address] | [facility] | | [place] [address] Director: JOSHUA HIGGINS MD.,PH.D | DIAGNOSTICS - | | | [place] | + + + + + + + + | Performing | Address | City/State/Zipcode | Phone Number | | Organization | | | | + + + + + | REFERENCE LAB | [address] | [place], [place] | [phone] | | [facility] - | [address] | [address] | | | [place] | | | [...] Name: | REFERENCE LAB | | [facility] Address: [address] [facility] [address] | [place] | | [address] [place] [address] Director: RAYSHAWN GUTIERREZ MD | DIAGNOSTICS - | | | [place] | + + + + + + + + | Performing | Address | City/State/Zipcode | Phone Number | | Organization | | | | + + + + + | REFERENCE LAB | [address] | [place], [place] | [phone] | | [facility] - | [address] | [address] | | | [place] | | | [...] | | | | | | Qualitative ([id number]) | | | | | | testing [...] Name: | REFERENCE LAB | | [facility] Address: [address] | [facility] | | [address] [place] [address] Director: RAYSHAWN GUTIERREZ MD | DIAGNOSTICS - | | | [place] | + + + + + + + + | Performing | Address | City/State/Zipcode | Phone Number | | Organization | | | | + + + + + | REFERENCE LAB | [address] | [place], [place] | [phone] | | [facility] - | [address] | [address] | | | [place] | | | | + + + [...] Name: | REFERENCE LAB | | [facility] Address: [address] [facility] [address] | [facility] | | [address] [place] [address] Director: RAYSHAWN GUTIERREZ MD | DIAGNOSTICS - | | | [place] | + + + + + + + + | Performing | Address | City/State/Zipcode | Phone Number | | Organization | | | | + + + + + | REFERENCE LAB | [address] | [place], [place] | [phone] | | [facility] - | [address] | [address] | | | [place] | | | [...] | + + + + + | [facility] | [address] [facility] | [place] [address] | [phone] | | MEDICAL CENTER | | | [...] | mL/min/1.73m2 | MEM[facility]IAL | | | [facility] | | | MEDICAL | | | [...] YEARS OLD. | [facility] | | | [facility] | | | [facility] | | | LABORATORY | + + + + + + + + | Performing | Address | City/State/Zipcode | Phone Number | | Organization | | | | + + + + + | [facility] | [address] | [place] [address] | [phone] | | [facility] | | | | | [...] [place] | [address] | [place] [address] | [phone] | | [facility] | | | | | [...]
--- OUTSIDE RECORDS SUMMARY | ~2019-11-21 | XMS | Encounter Summary ---
Demographics + + + | Address | [address] | | | [place] [address] | + + + | Home Phone | | + + + | Preferred Language | Unknown | + + + | Marital Status | Single | + + + | Latter-Day Affiliation | Unknown | + + + | Race | Unknown | + + + | Ethnic Group | Unknown | + + + Author + + + | Author | [facility] | [...] | Aaron Giron | [place] [address] | | + + + + + Care Team Providers + +------+ + | Care Cloth Designer Name | Role | Phone | + +------+ + | Catracho Mullen DO | PCP | | + +------+ + Encounter Details +--------+ + + + + | Date | Type | Department | Care Team | Description | +--------+ + + + + | 12/03/ | Hospital | [facility] | Dewayne Ozuna | Oral infection | | 2015 | Encounter | MEDICAL CENTER | [address] | (Primary Dx) | | | | LABORATORY [address] [place], [place] | | | | | [place], [place] | [address] | | | | | [address] | | | | | | [phone] | | | +--------+ + + + [...] [address] | [place] [address] | [phone] | | MEDICAL CENTER | | | | | LABORATORY | | | | + + + + + documented in this encounter Visit Diagnoses + + | Diagnosis | + + | Oral infection - Primary Cellulitis and abscess of oral soft tissues | + + documented in this encounter"
--- OUTSIDE RECORDS SUMMARY | ~2019-11-21 | XMS | Encounter Summary ---
Demographics + + + | Address | [address] | | | [place] [address] | + + + | Home Phone | | + + + | Preferred Language | Unknown | + + + | Marital Status | Single | + + + | Muslim Affiliation | Unknown | + + + | Race | Unknown | + + + | Ethnic Group | Unknown | + + + Author + + + | Author | [facility] | | | and [place] | + + + | Organization | and [facility] | | | and Abhinavana | + + + | Address | Unknown | + + + | Phone | Unavailable | + + + Support + + + + + | Name | Relationship | Address | Phone | + + + + + | Aaron Giron | [place] [address] | | + + + + + Care Team Providers + +------+ + | Care Communications Consultant Name | Role | Phone | + +------+ + | Catracho Mullen DO | PCP | | + +------+ + Encounter Details +--------+ + + + + | Date | Type | Department | Care Team | Description | +--------+ + + + + | 03/22/ | Hospital | [facility] | Connie Gaines, | Missed period | | 2013 | Encounter | MEDICAL CENTER | [facility] [employer] [address] [facility] | | | | | LABORATORY [address] | [place] [address] | | | | | [address] [place] | [phone] | | | | | [address] | | | | | | [phone] | | | +--------+ + + + [...] | + + + + + | [facility] | [address] | [place] [address] | [phone] | | [facility] | | | | | LABORATORY | | | | + + + + + documented in this encounter Visit Diagnoses + + | Diagnosis | + + | Missed period Irregular menstrual cycle | + + documented in this encounter"
[~2019-11-21 13:46] MED LIST: CIPRO500 MG PO; DEPAKOTE125 MG PO; GLUCOPHAGE500 MG PO; METHYLPHENIDATE5 MG PO; NORCO 5-325 TA1 EACH PO
--- OUTSIDE RECORDS SUMMARY | 2019-11-21 13:48 | XMS ---
PreManage Notification: ANGEL GU Security Auto Body Man Events No recent Security Events currently on file CRITERIA MET - [facility] - 2 Visits in 30 Days CARE PROVIDERS Raudel Starks Mother Baby Rn/Cottage Cheese Maker Current Care [facility] Care Team PHONE: [phone] NATALIIA SPIVEY Clinic/Center: Federally Qualified 06/14/2019-[facility] ([facility]) PHONE: [phone] Karlos has no Care Guidelines for this patient. E.DRylee VISIT COUNT (12 MO.) [facility] [address] [place] [address] TOTAL 3 NOTE: Visits indicate total known visits. ED/UCC VISIT TRACKING (12 MO.) 11/21/2019 13:46 [facility] TYPE: Emergency COMPLAINT: - VOMITING, FEVER, CHILLS 10/30/2019 19:00 [facility] TYPE: Emergency COMPLAINT: - ABDOMINAL PAIN 02/23/2019 02:55 Tomilizeth Edgar [facility] MALACHI [facility] TYPE: Emergency DIAGNOSES: - Acute vaginitis - Abdominal pain - Dysuria - Cystitis, unspecified without hematuria INPATIENT VISIT TRACKING (12 MO.) 10/30/2019 19:01 [facility] TYPE: Observation COMPLAINT: - ACUTE CHOLECYSTITIS DIAGNOSES: - Allergy status to penicillin - Acquired absence of other specified parts of digestive tract - Type 2 diabetes mellitus without complications - Right upper quadrant pain - Nicotine dependence, cigarettes, uncomplicated - Calculus of gallbladder with acute and chronic cholecystitis - Other care home (current) drug therapy - prison (current) use of oral hypoglycemic drugs [email or web address]
== END 2019-11-21 14:03 | disposition left against medical advice (07) ==
LOC: ED 13:46
DX: Z53.21 Procedure and treatment not carried out due to patient leaving prior to being seen by health care provider (principal)